=== PATIENT | female | born 1990 | race Caucasian/White ===

== ENCOUNTER → 2020-08-22 09:21 | Outpatient (BNVA) | payer OTHER, SELFPAY | PROVIDERS: PCP Internal Medicine; Visit Provider Physician Assistant ==

== ENCOUNTER → 2020-09-02 08:16 | Outpatient (BNVA) | payer OTHER, SELFPAY | PROVIDERS: PCP Internal Medicine; Visit Provider Surgery | DX: E66.01 Morbid (severe) obesity due to excess calories (principal); G47.30 Sleep apnea, unspecified; K21.9 Gastro-esophageal reflux disease without esophagitis; Z68.43 Body mass index [BMI] 50.0-59.9, adult | CPT/HCPCS: Q3014 ==

== ENCOUNTER 2020-09-04 09:21 | Outpatient (REF) | payer OTHER, SELFPAY ==
--- NOTE | ~2020-09-04 | XR_ITS ---
EXAMINATION: XR CHEST CLINICAL INFORMATION: Obesity COMPARISON: None TECHNIQUE: 2 views of the chest were obtained. FINDINGS: No significant abnormality is noted involving the heart, lungs, mediastinum, bony thorax or soft tissues. XR/XR chest 2V IMPRESSION: Unremarkable examination.
--- NOTE | 2020-09-04 09:31 | ECG_ITS ---
Test Reason : E66.01 Blood Pressure : / mmHG Vent. Rate : 084 BPM Atrial Rate : 084 BPM P-R Int : 154 ms QRS Dur : 092 ms QT Int : 378 ms P-R-T Axes : 047 035 016 degrees QTc Int : 446 ms Normal sinus rhythm Normal ECG No previous ECGs available Referred By: Alexey Puri Electronically Signed By:YUDITH CALLAWAY
[2020-09-04 10:13] LABS: MANUAL DIFF FLAG NO
[2020-09-04 10:17] LABS: Basophils Absolute Auto 0.1 X10*3/uL (0.0-0.2); Basophils Percent Auto 0.6 % (0-2); Eosinophils Absolute Auto 0.2 X10*3/uL (0.0-0.4); Eosinophils Percent Auto 2.6 % (0-4); Hematocrit 43.4 % (37-47); Hemoglobin 13.8 g/dl (12.0-16.0); Imm Gran Abs Auto 0.08 X10*3/uL (0.00-0.03); Imm Gran Pct Auto 0.9 % (0.0-0.4); Lymphocytes Absolute Auto 2.5 X10*3/uL (1.2-4.9); Mean Corpuscular HGB Conc 31.8 g/dl (31.0-35.0); Mean Corpuscular Hemoglobin 26.9 pg (27.0-33.0); Mean Corpuscular Volume 84.6 fL (80-98); Mean Platelet Volume 9.4 fL (9.4-12.3); Monocytes Absolute Auto 0.6 X10*3/uL (0.1-1.2); Monocytes Percent Auto 6.6 % (2-11); Neutrophils Absolute Auto 5.3 X10*3/uL (2.0-8.3); Neutrophils Percent Auto 60.3 % (45-73); Platelet Count 379 X10*3/uL (160-400); Red Blood Count 5.13 X10*6/uL (4.20-5.50); Red Cell Distribution Width 13.5 % (11.0-16.0); White Blood Count 8.7 X10*3/uL (4.8-10.8)
[2020-09-04 10:27] LABS: Estimated Average Glucose 123 mg/dL; Hemoglobin A1C 148.3461 umol/L; Hemoglobin A1c % 5.9 %
[2020-09-04 10:46] LABS: Alanine Aminotransferase 27 U/L (0-31); Albumin Level 4.2 g/dL (3.5-5.0); Alkaline Phosphatase 74 U/L (39-117); Anion Gap 13 (12-20); Aspartate Amino Transferase 23 U/L (5-31); Bilirubin Total 0.5 mg/dL (0.0-1.0); Blood Urea Nitrogen 9 mg/dL (9-16); C Reactive Protein 1.01 mg/dL (< or = 0.50); Calcium 9.6 mg/dL (8.4-10.2); Carbon Dioxide 29 mmol/L (22-29); Chloride 102 mmol/L (96-108); Cholesterol 179 mg/dL; Estimated Glomerular Filt Rate > 60; Glucose Random 92 mg/dL (60-115); HDL Cholesterol 40 mg/dL; Iron 71 mcg/dL (30-160); LDL Cholesterol Calculated 118 mg/dl; Percent Iron Saturation 16 % (15-50); Potassium 4.9 mmol/L (3.3-5.1); Sodium 139 mmol/L (135-145); Total Iron Binding Capacity 431 mcg/dL (228-428); Total Protein 7.9 g/dL (6.5-8.0); Triglycerides 106 mg/dL; Unsaturated Iron Binding 360 ug/dL
[2020-09-04 11:01] LABS: TSH reflex Free T4 1.45 uIU/mL (0.32-4.0); Vitamin D 25-OH Total 20.8 ng/mL (>30)
[2020-09-04 11:11] LABS: Ferritin 24 ng/mL (10-122)
[2020-09-04 11:12] LABS: Folate 15.2 ng/mL (> or = 4.0); Vitamin B12 416 pg/mL (200-900)
[2020-09-05 06:32] LABS: Insulin Level Total 68.4 uIU/mL
[2020-09-06 10:22] LABS: Calcium (PTHI) 9.5 mg/dL (8.6-10.2); PTHI 32 pg/mL (14-64)
[2020-09-06 23:47] LABS: Zinc 112 mcg/dL (60-130)
[2020-09-10 10:17] LABS: Vitamin A 37 mcg/dL (38-98)
[2020-09-10 15:12] LABS: Vitamin B1 10 nmol/L (8-30)
== END 2020-09-04 09:22 | disposition home or self-care (01) ==
LOC: HO.LAB 09:21
PROVIDERS: PCP Internal Medicine; Visit Provider Surgery
DX: E66.01 Morbid (severe) obesity due to excess calories (principal); G47.30 Sleep apnea, unspecified; K21.9 Gastro-esophageal reflux disease without esophagitis
CPT/HCPCS: 36415; 71046; 80053; 80061; 82306; 82607; 82728; 82746; 83036; 83525; 83540; 83970; 84425; 84443; 84590; 84630; 85025; 86140; 93005

== ENCOUNTER 2020-09-12 14:56 | Outpatient (REF) | payer OTHER, SELFPAY ==
[2020-09-13 13:41] LABS: H Pylori Breath Test NOT DETECTED (NOT DETECTED)
== END 2020-09-12 14:57 | disposition home or self-care (01) ==
LOC: HO.LNP 14:56
PROVIDERS: Surgery; PCP Internal Medicine; Visit Provider Physician Assistant
DX: E66.01 Morbid (severe) obesity due to excess calories (principal); G47.30 Sleep apnea, unspecified; K21.9 Gastro-esophageal reflux disease without esophagitis
CPT/HCPCS: 83013; 99211

== ENCOUNTER → 2020-09-23 07:33 | Outpatient (BNVA) | payer OTHER, SELFPAY | PROVIDERS: PCP Internal Medicine; Visit Provider Surgery ==

== ENCOUNTER → 2020-09-25 08:07 | Outpatient (BNVA) | payer OTHER, SELFPAY | PROVIDERS: PCP Internal Medicine; Visit Provider Dietitian, Registered | DX: E66.01 Morbid (severe) obesity due to excess calories (principal); Z68.43 Body mass index [BMI] 50.0-59.9, adult | CPT/HCPCS: 97802 ==

== ENCOUNTER 2020-10-07 07:33 | Outpatient (REF) | payer OTHER, SELFPAY ==
--- NOTE | ~2020-10-07 | FL_ITS ---
EXAMINATION: XR GI SERIES CLINICAL INFORMATION: Morbid/severe obesity due to excess calories. COMPARISON: None. TECHNIQUE: Routine upper GI air-contrast study was performed. FINDINGS: Following oral administration of thick barium and effervescent granules, there is normal propagation bolus from the oral cavity through the pharynx and into the esophagus without any evidence of obstruction, narrowing or stricture. On placing patient supine and prone lying, the course, caliber and peristalsis of the stomach, duodenal bulb and the CBD are normal. The mucosal pattern of the stomach and the duodenum is normal. No gastroesophageal reflux or hiatal hernia seen. FLUOROSCOPY TIME: 2.6 minutes. DOSE AREA PRODUCT: 62.046 uGy-m2 (microgray-meter squared). FL/FL upper GI series IMPRESSION: Unremarkable upper GI air-contrast study.
--- NOTE | ~2020-10-07 | US_ITS ---
EXAMINATION: US COMPLETE ABDOMEN WITH LIVER ELASTOGRAPHY CLINICAL INFORMATION: Obesity COMPARISON: None. TECHNIQUE: Real-time imaging of the abdominal viscera. Noninvasive ultrasound liver fibrosis assessment is performed using Darlene ElastPQ point quantification shear wave elastography (pSWE) with a C5-2 MHz transducer. Multiple elastography samples are obtained. FINDINGS: PANCREAS: Normal. ABDOMINAL AORTA: The proximal, middle, and distal aortic segments are normal in caliber. INFERIOR VENA CAVA: Visualized portions are normal. LIVER: Liver is enlarged. Liver echotexture is increased probably representing fatty alteration. The liver contour is normal. No focal lesion or intrahepatic biliary duct dilatation. The right lobe measures 20 cm in length. The left lobe measures 12 cm in length. Portal flow is normal/hepatopedal. Shear wave liver elastography median stiffness is 1.3 m/s (reference: normal median stiffness is 1.3 m/s or less). IQR/median stiffness to assess sampling precision is .2 (reference: good quality data set is IQR/median stiffness of 0.15 or less). GALLBLADDER: Normal. The gallbladder is physiologically distended without evidence of stones, sludge, polyps, wall thickening or pericholecystic fluid. COMMON BILE DUCT: Normal in caliber measuring .3 cm in diameter. RIGHT KIDNEY: Normal. No hydronephrosis. No renal calculi or focal parenchymal lesions. The kidney measures 15 cm in maximum dimension. LEFT KIDNEY: There are 2 stones measuring 8 mm in the mid and lower pole. No hydronephrosis. No focal parenchymal lesions. The kidney measures 14 cm in maximum dimension. SPLEEN: Normal. The spleen measures 12 cm in maximum dimension. FREE FLUID: None. US/US abdomen comp w elastography IMPRESSION: 1. Impression: Enlarged echogenic liver probably representing fatty infiltration. Left renal stones. 2. Liver elastography: Slightly limited due to sampling error. High probability of normal. REFERENCE: Society of Radiologists in Ultrasound Liver Stiffness Thresholds (2020): LIVER STIFFNESS THRESHOLDS: *Liver Stiffness equal or less than 1.3 m/s: High probability of being normal. *Liver Stiffness less than 1.7 m/s: In the absence of other known clinical signs, rules out compensated advanced chronic liver disease. *Liver Stiffness 1.7-2.1 m/s: Suggestive of compensated advanced chronic liver disease but need further test for confirmation. *Liver Stiffness over 2.1 m/s: Rules in compensated advanced chronic liver disease. *Liver Stiffness over 2.4 m/s: Suggestive of clinically significant portal hypertension. QUALITY OF DATA SET: *IQR/Median value equal or less than 0.15 implies a quality data set. *IQR/Median value over 0.15 implies a poor quality data set. SIGNIFICANT CHANGE FROM PRIOR EXAM: Significant change if liver stiffness measurement is 10% or greater from prior exam. OTHER CONSIDERATIONS: The stage of liver fibrosis may be overestimated in the setting of acute hepatitis, liver inflammation, elevated liver function tests, hepatic vascular congestion, obstructive cholestasis, non-fasting state, and infiltrative diseases such as amyloidosis and lymphoma. In some patients with NAFLD, the liver stiffness thresholds for compensated advanced chronic liver disease may be lower. In causes other than viral hepatitis and NAFLD, liver stiffness thresholds are not well established.
== END 2020-10-07 07:34 | disposition home or self-care (01) ==
LOC: HO.US 07:33
PROVIDERS: Visit Provider Surgery
DX: Z01.818 Encounter for other preprocedural examination (principal); E66.01 Morbid (severe) obesity due to excess calories; K21.9 Gastro-esophageal reflux disease without esophagitis; G47.30 Sleep apnea, unspecified
CPT/HCPCS: 74240; 76705; 76981

== ENCOUNTER 2021-02-06 11:13 | Outpatient (REF) | payer OTHER, SELFPAY ==
[2021-02-06 12:38] LABS: Influenza A PCR NEGATIVE (Negative); Influenza B PCR NEGATIVE (Negative); Resp Syncy Virus RNA Qual PCR NEGATIVE (Negative); SARS COV2 PCR INHOUSE NEGATIVE (Negative)
== END 2021-02-06 11:14 | disposition home or self-care (01) ==
LOC: HO.LNP 11:13
PROVIDERS: Visit Provider Physician Assistant Medical
DX: Z20.822 Contact with and (suspected) exposure to COVID-19 (principal); J06.9 Acute upper respiratory infection, unspecified
CPT/HCPCS: 0241U

== ENCOUNTER → 2021-02-26 08:04 | Outpatient (BNVA) | payer OTHER, SELFPAY | PROVIDERS: PCP Internal Medicine; Visit Provider Surgery ==

== ENCOUNTER → 2021-03-20 08:04 | Outpatient (BNVA) | payer OTHER, SELFPAY | PROVIDERS: PCP Internal Medicine; Visit Provider Dietitian, Registered | DX: E66.01 Morbid (severe) obesity due to excess calories (principal) | CPT/HCPCS: 97803 ==

== ENCOUNTER → 2021-03-24 08:10 | Outpatient (BNVA) | payer OTHER, SELFPAY | PROVIDERS: PCP Internal Medicine; Visit Provider Surgery ==

== ENCOUNTER → 2021-04-07 08:13 | Outpatient (BNVA) | payer SELFPAY | PROVIDERS: PCP Internal Medicine; Referring Provider Surgery; Visit Provider Dietitian, Registered | DX: E66.01 Morbid (severe) obesity due to excess calories (principal) | CPT/HCPCS: 97803 ==

== ENCOUNTER → 2021-04-22 08:16 | Outpatient (BNVA) | payer OTHER, SELFPAY | PROVIDERS: PCP Internal Medicine; Referring Provider Surgery; Visit Provider Dietitian, Registered ==

== ENCOUNTER → 2021-04-28 08:06 | Outpatient (BNVA) | payer OTHER, SELFPAY | PROVIDERS: PCP Internal Medicine; Referring Provider Surgery; Visit Provider Dietitian, Registered | DX: E66.01 Morbid (severe) obesity due to excess calories (principal); Z68.43 Body mass index [BMI] 50.0-59.9, adult | CPT/HCPCS: 97803 ==

== ENCOUNTER 2021-06-20 08:48 | Outpatient (REF) | payer OTHER, SELFPAY ==
[2021-06-20 09:17] LABS: MANUAL DIFF FLAG NO
[2021-06-20 09:27] LABS: Basophils Absolute Auto 0.1 X10*3/uL (0.0-0.2); Basophils Percent Auto 0.7 % (0-2); Eosinophils Absolute Auto 0.2 X10*3/uL (0.0-0.4); Eosinophils Percent Auto 2.3 % (0-4); Hematocrit 40.6 % (37.0-47.0); Hemoglobin 12.8 g/dl (12.0-16.0); Imm Gran Pct Auto 1.1 % (0.0-0.4); Lymphocytes Absolute Auto 2.8 X10*3/uL (1.2-4.9); Mean Corpuscular HGB Conc 31.5 g/dl (31.0-35.0); Mean Corpuscular Hemoglobin 26.8 pg (27.0-33.0); Mean Corpuscular Volume 85.1 fL (80.0-98.0); Monocytes Absolute Auto 0.6 X10*3/uL (0.1-1.2); Monocytes Percent Auto 6.6 % (2-11); Neutrophils Absolute Auto 5.1 x10*3/uL (2.0-8.3); Neutrophils Percent Auto 57.3 % (45-73); Platelet Count 325 X10*3/uL (160-400); Red Blood Count 4.77 X10*6/uL (4.20-5.50); Red Cell Distribution Width 13.9 % (11.0-16.0); White Blood Count 8.8 X10*3/uL (4.8-10.8)
[2021-06-20 09:52] LABS: Alanine Aminotransferase 30 U/L (0-31); Alkaline Phosphatase 78 U/L (39-117); Anion Gap 9 (12-20); Aspartate Amino Transferase 18 U/L (5-31); Bilirubin Total 0.4 mg/dL (0.0-1.0); Blood Urea Nitrogen 8 mg/dL (9-16); Calcium 9.4 mg/dL (8.4-10.2); Carbon Dioxide 32 mmol/L (22-29); Chloride 104 mmol/L (96-108); Cholesterol 170 mg/dL; Estimated Glomerular Filt Rate > 60; Glucose Fasting 102 mg/dL (60-99); HDL Cholesterol 40 mg/dL; LDL Cholesterol Calculated 113 mg/dl; Potassium 4.7 mmol/L (3.3-5.1); Sodium 140 mmol/L (135-145); Total Protein 7.5 g/dL (6.5-8.0); Triglycerides 89 mg/dL
[2021-06-20 10:09] LABS: TSH reflex Free T4 1.71 uIU/mL (0.32-4.0)
[2021-06-20 11:17] LABS: Estimated Average Glucose 134 mg/dL; Hemoglobin A1c % 6.3 %
[2021-06-20 12:35] LABS: Folate 11.9 ng/mL (> or = 4.0); Vitamin B12 327 pg/mL (200-900)
[2021-06-27 21:51] LABS: Vitamin D 25-OH, D2 <4 ng/mL; Vitamin D 25-OH, D3 15 ng/mL; Vitamin D 25-OH, Total 15 ng/mL (30-100)
== END 2021-06-20 08:49 | disposition home or self-care (01) ==
LOC: HO.LAB 08:48
PROVIDERS: PCP Internal Medicine; Visit Provider Nurse Practitioner Acute Care
DX: Z00.00 Encounter for general adult medical examination without abnormal findings (principal)
CPT/HCPCS: 36415; 80053; 80061; 82306; 82607; 82746; 83036; 84443; 85025

== ENCOUNTER 2021-07-10 11:44 | Emergency (ER) | payer OTHER, SELFPAY ==
[2021-07-10 11:51] VITALS: BP 113/76; PULSE 16; O2SAT 96
[2021-07-10 12:10] VITALS: BP 141/73; PULSE 83; RESP 18; TEMP 37.1; O2SAT 96; BMI 56.2
[2021-07-10 12:23] LABS: MANUAL DIFF FLAG NO
[2021-07-10 12:25] LABS: Basophils Percent Auto 0.5 % (0-2); Eosinophils Absolute Auto 0.2 X10*3/uL (0.0-0.4); Eosinophils Percent Auto 2.4 % (0-4); Hematocrit 39.6 % (37.0-47.0); Hemoglobin 12.6 g/dl (12.0-16.0); Imm Gran Abs Auto 0.05 X10*3/uL (0.00-0.03); Imm Gran Pct Auto 0.6 % (0.0-0.4); Lymphocytes Absolute Auto 2.5 X10*3/uL (1.2-4.9); Lymphocytes Percent Auto 31.5 % (20-40); Mean Corpuscular HGB Conc 31.8 g/dl (31.0-35.0); Mean Corpuscular Hemoglobin 26.6 pg (27.0-33.0); Mean Corpuscular Volume 83.7 fL (80.0-98.0); Mean Platelet Volume 8.7 fL (9.4-12.3); Monocytes Absolute Auto 0.5 X10*3/uL (0.1-1.2); Neutrophils Absolute Auto 4.6 x10*3/uL (2.0-8.3); Platelet Count 299 X10*3/uL (160-400); Red Blood Count 4.73 X10*6/uL (4.20-5.50); White Blood Count 7.9 X10*3/uL (4.8-10.8)
[2021-07-10 12:47] LABS: Alanine Aminotransferase 32 U/L (0-31); Albumin Level 3.8 g/dL (3.5-5.0); Alkaline Phosphatase 71 U/L (39-117); Anion Gap 10 (12-20); Aspartate Amino Transferase 19 U/L (5-31); Bilirubin Total 0.2 mg/dL (0.0-1.0); Blood Urea Nitrogen 11 mg/dL (9-16); Calcium 9.5 mg/dL (8.4-10.2); Carbon Dioxide 30 mmol/L (22-29); Chloride 105 mmol/L (96-108); Creatinine Clr Calc Pharmacy 178.8; Estimated Glomerular Filt Rate > 60; Glucose Random 119 mg/dL (60-115); Potassium 4.6 mmol/L (3.3-5.1); Sodium 140 mmol/L (135-145); Total Protein 7.2 g/dL (6.5-8.0)
--- NOTE | 2021-07-10 15:21 | ED_ITS ---
HPI - Abdominal Pain General Chief Complaint: Abdominal Pain Stated Complaint: LOW ABD PAIN, RECENT OVARIAN CYST PER EMS Time Seen by Provider: 07/10/21 15:18 Source: patient and EMS Mode of arrival: EMS Limitations: no limitations History of Present Illness HPI narrative: 31-year-old female with a history of PCOS, prediabetes, migraines, insomnia, obesity who presents to the ER with lower abdominal pain for the last 3 days. She was just seen at [place] [facility] last night, had full workup including ultrasound and CT scan. She was diagnosed with ovarian cysts and discharged home. She called 911 today for transport to the hospital for ongoing pain. She called her OBGYN this morning for follow up who reports that her imaging also showed 7mm kidney stones and her pain may be from that. patient reports she has a dull, aching pain along her entire lower abdomen and pelvic area that is constant in nature. It does not wax and wane or get worse. She denies any vaginal bleeding or discharge. She reports increased urinary frequency but denies dysuria or hematuria. No flank pain. She is nauseous from the lower abdominal pain but has not vomited. No constipation or diarrhea. No fever chills. She has been taking Motrin and Tylenol for her lower abdominal pain with no relief. She states the pain is 10/10. MD elicited complaint: abdominal pain Pertinent past history: other (PCOS) Onset (ago): day(s) (3) Pain Consistency: constant Location: pelvis Severity: severe Pain scale (0-10): 10 Quality: aching and dull Radiation: none Migration to: no migration Exacerbating factors: nothing Relieving factors: nothing Associated symptoms: nausea and other (urinary frequency) Treatments prior to arrival: NSAIDs Related Data Hx Last Menstrual Period: one year ago, very irregular Previous Rx's Medication Instructions Recorded ebncadpzzc-bamqzxjsikoqg-oauwyaar 1 cap PO Q4-6H PRN #10 cap 06/12/21 50 mg-300 mg-40 mg capsule (Fioricet) trazodone 50 mg tablet 50 mg PO BEDTIME PRN #30 tab 06/12/21 calcitriol 0.25 mcg capsule 0.25 mcg PO DAILY #30 cap 06/29/21 nitrofurantoin 100 mg PO Q12H 5 Days #10 cap 07/10/21 monohydrate/macrocrystals 100 mg capsule (Macrobid) tramadol 50 mg tablet 50 mg PO Q8H PRN #7 tab 07/10/21 Allergies Allergy/AdvReac Type Severity Reaction Status Date / Time cortisone [CORTISONE] Allergy Unknown Anaphylaxis,hives,chest Verified 06/12/21 15:58 pain Review of Systems Review of Systems Constitutional: No Fever, No Chills ENT/Mouth: No sore throat, No Rhinorrhea, No Swallowing Difficulty Cardiovascular: No Chest Pain, No SOB, No Orthopnea, No Edema Respiratory: No Cough, No Sputum, No Wheezing, No dyspnea Gastrointestinal: + Nausea, No Vomiting, No Diarrhea, + abdominal Pain, No Hematochezia, No Melena Genitourinary: No Dysuria, + Urinary Frequency, No Hematuria, No vaginal discharge Musculoskeletal: No joint pain, No Myalgias Skin: No Skin Lesions, No rash Neuro: No Weakness, No Numbness, No Dizziness, No Headache Psych: + Anxiety/Panic, No Depression Heme/Lymph: No Bruising, No Lymphadenopathy Endocrine: No Polyuria, No Polydipsia PMFSH Past Medical History Medical History GERD (gastroesophageal reflux disease) Morbid obesity PCOS (polycystic ovarian syndrome) Sleep apnea with use of continuous positive airway pressure (CPAP) Surgical History History of incision and drainage Hx Last Menstrual Period: one year ago, very irregular Family History Family History Father Bipolar 1 disorder COPD (chronic obstructive pulmonary disease) Psoriasis Eczema Depression Chronic mental illness Mother Hypothyroidism Rheumatoid arthritis Brother In good health Paternal Aunt Breast cancer Social History Social History Housing: House Alcohol intake: current Alcohol intake frequency: a few times a month Patient Tobacco Use Status: Never used Tobacco e-Cigarette/Vaping Use: Never Used Second Hand Smoke Exposure: No Advance Directives: No Advance Directives Information Provided: No Patient : No service: No Current occupational status: employed Cognitive needs: No Hearing needs: No Vision needs: No Physical Exam ED Vital Signs: Vital Signs - 24 hr 07/10/21 12:10 07/10/21 16:50 Temperature 98.7 F Pulse Rate 83 77 Respiratory Rate 18 18 Blood Pressure 141/73 H 126/70 Pulse Oximetry 96 99 BMI result Body Mass Index 56.2 Appearance: Alert. Oriented X3. No acute distress. Eyes: Pupils equal, round and reactive to light. ENT: Pharynx normal. Neck: Normal inspection. Neck supple. CVS: Normal heart rate and rhythm. Pulses normal. Respiratory: No respiratory distress. Breath sounds normal. Abdomen: morbidly obese with suprapubic tenderness, no rebound or guarding. normal +BS x4. pelvic deferred Skin: Skin warm and dry. Normal skin color. Normal skin turgor. No rashes. Extremities: No lower extremity edema. Neuro: Oriented X 3. grossly normal, nonfocal Course Course Course Narrative: 31-year-old female with a history of obesity, PCOS, prediabetes, migraines, insomnia who presents to the ER with 3 days of dull, constant lower abdominal pain. Seen at [facility] yesterday where she had a transvaginal ultrasound with Doppler as well as a CT scan. Imaging showed both ovaries with volume greater than 10 cc, multiple follicles, greater than 20 in each ovary consistent with PCOS. There was no evidence of torsion or suspicious lesions. CT scan read was reviewed and there are 2 nonobstructing stones within the left kidney none in the ureter and, no hydronephrosis. She has no flank pain to suggest pain is coming from there. Upon further review patient appeared to had a ur inalysis that was showed 3+ leukocyte esterase. Her pain is most likely from UTI and a flare of her PCOS. Will treat her pain and nausea now and reassess. Repeat UA is pending. No need to repeat ultrasound or CT scan at this time given her pain is unchanged from yesterday, doubt torsion given no acute worsening of the pain. Reevaluation(s) Reevaluation #1: patient is feeling better after medication. Her UA is slightly positive with positive leukocyte esterase. Will treat given her symptoms. Id she is stable for discharge home with pain control and treatment for UTI. She will follow-up with her OBGYN in primary care doctors. MDM - Abdominal Pain Lab Data Result diagrams: 07/10/21 12:20 07/10/21 12:20 Labs: Lab Results 03/07/10/21 07/10/21 Range/Units 12:20 12:20 16:53 WBC 7.9 (4.8-10.8) X10*3/uL RBC 4.73 (4.20-5.50) X10*6/uL Hgb 12.6 (12.0-16.0) g/dl Hct 39.6 (37.0-47.0) % MCV 83.7 (80.0-98.0) fL MCH 26.6 L (27.0-33.0) pg MCHC 31.8 (31.0-35.0) g/dl RDW 14.0 (11.0-16.0) % Plt Count 299 (160-400) X10*3/uL MPV 8.7 L (9.4-12.3) fL Immature Gran % (Auto) 0.6 H (0.0-0.4) % Neut % (Auto) 59.0 (45-73) % Lymph % (Auto) 31.5 (20-40) % Iron % (Auto) 6.0 (2-11) % Eos % (Auto) 2.4 (0-4) % Baso % (Auto) 0.5 (0-2) % Lymph # (Auto) 2.5 (1.2-4.9) X10*3/uL Iron # (Auto) 0.5 (0.1-1.2) X10*3/uL Eos # (Auto) 0.2 (0.0-0.4) X10*3/uL Baso # (Auto) 0.0 (0.0-0.2) X10*3/uL Abs Immat Gran (auto) 0.05 H (0.00-0.03) X10*3/uL Absolute Neuts (auto) 4.6 (2.0-8.3) x10*3/uL Absolute Nucleated RBC 0.000 (0.0-0.012) X10*3/uL Nucleated RBC % (auto) 0.0 (0.0-0.2) /100WBC Sodium 140 (135-145) mmol/L Potassium 4.6 (3.3-5.1) mmol/L Chloride 105 (96-108) mmol/L Carbon Dioxide 30 H (22-29) mmol/L Anion Gap 10 L (12-20) BUN 11 (9-16) mg/dL Creatinine 0.70 (0.5-1.4) mg/dL Estim Creat Clear Calc 178.8 Estimated GFR > 60 Random Glucose 119 H (60-115) mg/dL Calcium 9.5 (8.4-10.2) mg/dL Total Bilirubin 0.2 (0.0-1.0) mg/dL AST 19 (5-31) U/L ALT 32 H (0-31) U/L Alkaline Phosphatase 71 (39-117) U/L Total Protein 7.2 (6.5-8.0) g/dL Albumin 3.8 (3.5-5.0) g/dL Urine Color YELLOW Urine Appearance HAZY Urine pH 5.5 (5.0-8.0) Ur Specific [place] 1.025 (1.005-1.025) Urine Protein NEG (NEG-TRACE) MG/DL Urine Glucose (UA) NEG (NEG) MG/DL Urine Ketones NEG (NEG) MG/DL Urine Blood NEG (NEG) Urine Nitrite NEG (NEG) Ur Leukocyte Esterase 1+ H (NEG) Urine RBC 0 (0) /HPF Urine WBC 1-4 (0-4) /HPF Ur Squamous Epith Cells 1+ /LPF Urine Bacteria TRACE /LPF Critical Care Time Critical Care Time Critical Care Time: No Discharge Plan Discharge Clinical Impression: PCOS (polycystic ovarian syndrome), UTI (urinary tract infection) Patient Disposition: Home, Self-Care Instructions: Ovarian Cyst (ED), Urinary Tract Infection in Women (DC) Additional Instructions: Take the prescribed antibiotic for urinary tract infection, complete the entire course. Drink plenty of fluids. Recommend continuing Motrin and Tylenol as needed for mild to moderate pain. Take the prescribed Tramadol for severe pain - do not drive after taking this medication. Follow up with your [facility] [employer] [facility] and PCP as soon as possible If you develop new or worsening symptoms call 911 or come back to the ER for further evaluation. Prescriptions: New nitrofurantoin monohyd/m-cryst [Macrobid] 100 mg capsule 100 mg PO Q12H 5 Days Qty: 10 0RF Rx Instructions: must administer with a meal/food tramadol 50 mg tablet 50 mg PO Q8H PRN (Reason: severe pain (scale score 7-10)) Qty: 7 0RF No Action calcitriol 0.25 mcg capsule 0.25 mcg PO DAILY Qty: 30 2RF trazodone 50 mg tablet 50 mg PO BEDTIME PRN (Reason: sleep) Qty: 30 0RF yaabkpnoqf-spykgilzduhhd-[id number] [Fioricet] 50-300-40 mg capsule 1 cap PO Q4-6H PRN (Reason: headache) Qty: 10 0RF Referrals: Kel Escalante MD [Primary Care Provider] - 2 days (pcos, uti) Edinson Whittaker MD [Physician] - 2 days (PCOS)
[2021-07-10] MEDS: ondansetron HCL 4 MG/2 ML VIAL IVPUSH (16:46)
[2021-07-10] MEDS: Morphine Sulfate 4 MG/ML CARTRIDGE IVPUSH (16:46)
[2021-07-10 16:50] VITALS: BP 126/70; PULSE 77; RESP 18; O2SAT 99
--- NOTE | 2021-07-10 17:00 | PC.NURSE ---
MEDICATED CHARTED FOR PAIN AND NAUSEA. PO CRACKERS GIVEN. URINE SENT
[2021-07-10 17:03] LABS: Appearance Urine HAZY; Color Urine YELLOW; Glucose Urine UA NEG (NEG); Leukocyte Esterase Urine 1+ (NEG); Nitrite Urine NEG (NEG); PH 5.5 (5.0-8.0); Specific Gravity - Urine 1.025 (1.005-1.025); UACC Culture Trigger YES; Urine Blood NEG (NEG); Urine Ketones NEG (NEG); Urine Protein NEG (NEG-TRACE)
[2021-07-10 17:18] LABS: Bacteria Urine TRACE /LPF; RBC Urine 0 /HPF (0); Squamous Epithelial Cell Urine 1+ /LPF
== END 2021-07-10 17:55 | disposition home or self-care (01) ==
PROVIDERS: Emergency Provider Emergency Medicine; PCP Internal Medicine
DX: N39.0 Urinary tract infection, site not specified (principal); E28.2 Polycystic ovarian syndrome; R10.30 Lower abdominal pain, unspecified; Z87.442 Personal history of urinary calculi; R73.03 Prediabetes
CPT/HCPCS: 36415; 80053; 81001; 85025; 87086; 96374; 96375; 99283; 99284; J2270; J2405

== ENCOUNTER 2021-07-16 11:04 | Outpatient (REF) | payer OTHER, SELFPAY ==
[2021-07-16 16:22] LABS: CT PCR NOT DETECTED (Not Detect.); NG PCR NOT DETECTED (Not Detect.)
== END 2021-07-16 11:05 | disposition home or self-care (01) ==
LOC: HO.LAB 11:04
PROVIDERS: PCP Internal Medicine; Visit Provider Obstetrics & Gynecology
DX: Z01.419 Encounter for gynecological examination (general) (routine) without abnormal findings (principal); N91.5 Oligomenorrhea, unspecified; Z32.02 Encounter for pregnancy test, result negative
CPT/HCPCS: 81025; 87491; 87591; 88142

== ENCOUNTER 2021-07-18 11:15 | Outpatient (REF) | payer OTHER, SELFPAY ==
[2021-07-18 12:39] LABS: Cholesterol 165 mg/dL; HDL Cholesterol 35 mg/dL; Triglycerides 101 mg/dL
[2021-07-18 12:50] LABS: HCG Quantitative < 2 mIU/mL; Thyroid Stimulating Hormone 1.71 uIU/mL (0.32-4.0)
[2021-07-20 04:52] LABS: DHEA Sulfate 140 mcg/dL (14-349); Prolactin 8.8 ng/mL
[2021-07-20 06:00] LABS: LDL Cholesterol Direct 118 mg/dL (<100)
[2021-07-26 20:36] LABS: Testosterone, Free 9.5 pg/mL (0.1-6.4); Testosterone, Total 68 ng/dL (2-45)
== END 2021-07-18 11:16 | disposition home or self-care (01) ==
LOC: HO.LAB 11:15
PROVIDERS: PCP Internal Medicine; Visit Provider Obstetrics & Gynecology
DX: N91.5 Oligomenorrhea, unspecified (principal)
CPT/HCPCS: 36415; 82465; 82627; 83498; 83718; 83721; 84146; 84402; 84403; 84443; 84478; 84702

== ENCOUNTER 2021-07-22 08:20 | Outpatient (REF) | payer OTHER, SELFPAY ==
[2021-07-22 09:21] LABS: Glucose Fasting 110 mg/dL (60-99)
[2021-07-22 11:07] LABS: Glucose 1 Hour 189 mg/dL
[2021-07-22 12:41] LABS: Glucose 2 Hour 163 mg/dL
== END 2021-07-22 08:21 | disposition home or self-care (01) ==
LOC: HO.LAB 08:20
PROVIDERS: PCP Internal Medicine; Visit Provider Obstetrics & Gynecology
DX: N91.5 Oligomenorrhea, unspecified (principal)
CPT/HCPCS: 36415

== ENCOUNTER 2021-08-01 01:00 | Emergency (ER) | payer OTHER, SELFPAY ==
--- NOTE | ~2021-08-01 | CT_ITS ---
EXAMINATION: CT SOFT TISSUE NECK WITH CONTRAST CLINICAL INFORMATION: Sore throat. Difficulty swallowing. COMPARISON: None TECHNIQUE: Following the intravenous administration of 85 mL of Omnipaque 350 intravenous contrast, helical imaging was performed in the axial plane with generation of coronal and sagittal reformatted images. This CT examination was performed using dose optimization techniques as appropriate, variously including the following: *Automated exposure control *Adjustment of mA and/or kV according to patient size (this includes techniques or standardized protocols for targeted exams where dose is matched to indication/reason for exam; i.e. extremities or head) *Use of iterative reconstruction technique DLP: 1209 mGy-cm FINDINGS: No cervical adenopathy is identified. The parotid glands are homogeneous in attenuation. The submandibular glands are normal. No contour abnormality or pathologic enhancement is seen within the oral cavity or pharyngeal mucosal space. There is prominence of the bilateral palatine tonsils. The laryngeal structures are normal. The parapharyngeal fat is preserved. The carotid sheath vasculature opacify normally. No extra mucosal soft tissue mass or fluid collection is seen. No retropharyngeal fluid collection is seen. The thyroid gland is normal. The superior mediastinum is unremarkable. The lung apices are clear. The mastoid air cells and visualized portions of the paranasal sinuses are well-aerated. The temporomandibular joints are normal. No periapical disease is identified. No osseous abnormalities are seen. The imaged portions of the brain parenchyma are unremarkable. CT/CT soft tissue neck w con IMPRESSION: Bilateral tonsillar prominence suggestive of tonsillitis. No lymphadenopathy. The airway remains patent.
[2021-08-01 01:27] VITALS: BP 121/67; PULSE 97; RESP 20; TEMP 36.8; O2SAT 96; BMI 54.9
--- NOTE | 2021-08-01 01:33 | ED.GENADULT ---
HPI - General Adult General Chief complaint: General Medical <COLE Mitchell Last Filed: 08/01/21 02:09> Stated complaint: double ear infection, strep throat <COLE Mitchell Last Filed: 08/01/21 02:09> Time Seen by Provider: 08/01/21 01:08 <COLE Mitchell Last Filed: 08/01/21 02:09> Source: patient <COLE Mitchell Last Filed: 08/01/21 02:09> Mode of arrival: ambulatory <COLE Mitchell Last Filed: 08/01/21 02:09> Limitations: no limitations <COLE Mitchell Last Filed: 08/01/21 02:09> History of Present Illness HPI narrative: 31-year-old female past medical history significant for GERD, morbid obesity, PCOS, sleep apnea with CPAP use at night presenting to the emergency department with complaints of ear pain, sore throat and shortness of breath x4 days worsening. Patient tells me that she was seen at a walk-in center earlier where she was noted to be febrile 102 degrees F, they told her she had a bilateral ear infection and strep throat. Patient tells me she was started on amoxicillin a 1000 mg p.o. Q 8 hours. Patient tells me that the reason she decided to come into the emergency department is because she is feeling like she is very short of breath and is having difficulty breathing. She denies chest pain, nausea, vomiting, headache, dizziness, abdominal pain, back pain, changes in urination. <COLE Mitchell Last Filed: 08/01/21 02:09> Onset (ago): day(s) (4) <COLE Mitchell Last Filed: 08/01/21 02:09> Location: head (Bilateral ears) and mouth (Sore throat) <COLE Mitchell Last Filed: 08/01/21 02:09> Radiation: non-radiation <COLE Mitchell Last Filed: 08/01/21 02:09> Severity: severe <COLE Mitchell Last Filed: 08/01/21 02:09> Quality: burning <COLE Mitchell Last Filed: 08/01/21 02:09> Pain Consistency: constant <COLE Mitchell Last Filed: 08/01/21 02:09> Relieving factors: none <COLE Mitchell Last Filed: 08/01/21 02:09> Exacerbating factors: none <COLE Mitchell Last Filed: 08/01/21 02:09> Associated symptoms: fever/chills (T-max 102 degrees) and malaise <COLE Mitchell Last Filed: 08/01/21 02:09> Treatments prior to arrival: none <COLE Mitchell Last Filed: 08/01/21 02:09> Related Data Home medications: Previous Rx's Medication Instructions Recorded tramadol 50 mg tablet 50 mg PO Q8H PRN #7 tab 07/10/21 trazodone 50 mg tablet 50 mg PO BEDTIME PRN #30 tab 07/15/21 amoxicillin 500 mg capsule 1,000 mg PO Q8H 10 Days #60 cap 07/31/21 amoxicillin 875 mg-potassium 1 tab PO BID 10 Days #20 tab 08/01/21 clavulanate 125 mg tablet <COLE Mitchell Last Filed: 08/01/21 02:09> Allergies/adverse reactions: Allergies Allergy/AdvReac Type Severity Reaction Status Date / Time cortisone [CORTISONE] Allergy Unknown Anaphylaxis,hives,chest Verified 07/31/21 10:28 pain <COLE Mitchell Last Filed: 08/01/21 02:09> Review of Systems Review of Systems: Constitutional : No Weight loss, No Fever, No Chills, + Fatigue, + Malaise ENT/Mouth : + sore throat, No Rhinorrhea, + ear pain Eyes: No Eye Pain, No Swelling, No Redness Cardiovascular : No Chest Pain, + SOB, No Dyspnea on Exertion, No Orthopnea, No Edema, No Palpitations Respiratory : No Cough, No Sputum, No Wheezing Gastrointestinal : No Nausea, No Vomiting, No Diarrhea, No Constipation, No abdominal Pain, No Hematochezia, No Melena Genitourinary : No Dysuria, No Urinary Frequency, No Hematuria, Musculoskeletal : No joint pain, No Myalgias, No Joint Swelling Skin : No Skin Lesions, No rash Neuro : No Weakness, No Numbness, No Dizziness, No Headache Psych : No Anxiety/Panic, No Depression All other systems reviewed and are negative <COLE Mitchell - Last Filed: 08/01/21 02:09> Yes all other systems are reviewed and are negative <COLE Mitchell - Last Filed: 08/01/21 02:09> [facility] Past Medical History Attestation statement: The following information was validated with the patient. <COLE Mitchell - Last Filed: 08/01/21 02:09> Source: old records reviewed and nursing notes reviewed <COLE Mitchell - Last Filed: 08/01/21 02:09> Medical History: Medical History GERD (gastroesophageal reflux disease) Morbid obesity PCOS (polycystic ovarian syndrome) Sleep apnea with use of continuous positive airway pressure (CPAP) <COLE Mitchell - Last Filed: 08/01/21 02:09> Surgical History: Surgical History History of incision and drainage <COLE Mitchell - Last Filed: 08/01/21 02:09> Family History Family History: Family History Father Bipolar 1 disorder COPD (chronic obstructive pulmonary disease) Psoriasis Eczema Depression Chronic mental illness Mother Hypothyroidism Rheumatoid arthritis Brother In good health Paternal Aunt Breast cancer <COLE Mitchell - Last Filed: 08/01/21 02:09> Social History Social History: Social History Housing: House Alcohol intake: current Alcohol intake frequency: a few times a month Patient Tobacco Use Status: Never used Tobacco e-Cigarette/Vaping Use: Never Used Second Hand Smoke Exposure: No Advance Directives: No service: No Current occupational status: employed Cognitive needs: No Hearing needs: No Vision needs: No <COLE Mitchell - Last Filed: 08/01/21 02:09> Physical Exam ED Vital Signs: Vital Signs - 24 hr 08/01/21 01:27 08/01/21 03:09 Temperature 98.2 F Pulse Rate 97 Respiratory Rate 20 Blood Pressure 121/67 Pulse Oximetry 96 95 BMI result Body Mass Index 54.9 Vital signs stable. <COLE Mitchell - Last Filed: 08/01/21 02:09> Vital Signs - 24 hr 08/01/21 01:27 08/01/21 03:09 Temperature 98.2 F Pulse Rate 97 Respiratory Rate 20 Blood Pressure 121/67 Pulse Oximetry 96 95 BMI result Body Mass Index 54.9 <Leida Virgen MD - Last Filed: 08/01/21 04:00> Appearance: Alert.? Oriented X3.? No acute distress.? Patient speaking in full sentences, slightly muffled voice, controlling secretions well. Head: Normocephalic, atraumatic, no step-offs or deformities Eyes: Pupils equal, round and reactive to light.? ENT: Bilateral enlarged, erythematous and edematous tonsils with exudate. Midline uvula. Neck: Normal inspection.? Neck supple.? CVS: Normal heart rate and rhythm.? Pulses normal.? Respiratory: No respiratory distress.? Breath sounds normal.? No stridor Abdomen: Soft and nontender.? Skin: Skin warm and dry.? Normal skin color.? Normal skin turgor.? Extremities: No lower extremity edema.? No calf ttp. 5/5 strength to bilateral upper and lower extremities Back: No midline tenderness, no C-spine tenderness, full range of motion, no CVA tenderness bilaterally Neuro: Oriented X 3.? No motor deficit.? No sensory deficit. CN 2-12 intact <COLE Mitchell - Last Filed: 08/01/21 02:09> Course Reevaluation(s) Reevaluation #1: CBC within normal limits. Chemistry pending. Lactic pending. CT of neck soft tissues with contrast pending. At this time sign out was given to Dr. Virgen. At time that sign-out given patient is saturating well on room air, no acute distress, able to speak in full sentences. <COLE Mitchell - Last Filed: 08/01/21 02:09> Reevaluation #2: Patient's CT scan shows tonsillitis. Patient breathing comfortably, patient is able to swallow without any difficulty, no drooling. Patient will be discharged with a prescription for Augmentin. Patient instructed to discontinue taking amoxicillin. In the emergency room, patient received 1 dose of clindamycin IV while the results the CT scan and labs were pending <Leida Virgen MD - Last Filed: 08/01/21 04:00> Medical Decision Making MDM Narrative Medical decision making narrative: 014 31 yo f presents w/ ear pain, severe sore throat and shortness of breath. She was told earlier she had a bilateral ear infection and strep. Upon chart review it appears as though patient actually tested negative for strep throat. Physical examination significant for enlarged erythematous tonsils with exudates. Patient's speaking with a slightly muffled voice. Controlling secretions well. Lungs clear. Regular rate and rhythm. Abdomen soft nontender nondistended. Neuro exam nonfocal. Patient controlling her own airway well. Unlikely that this is epiglottitis, will rule out peritonsillar abscess by obtaining a CT of the soft tissues of neck with contrast. I will give patient clindamycin 600 mg IV now. Plan at this time is basic lab work, CT of neck and soft tissues with contrast to rule out peritonsillar abscess. I will also obtain a mono test as patient's strep test was negative. <COLE Mitchell - Last Filed: 08/01/21 02:09> Medical Records Medical records reviewed: Yes I reviewed the patient's medical records. <COLE Mitchell - Last Filed: 08/01/21 02:09> Lab Data Lab results reviewed: Yes I reviewed the patient's lab results. <COLE Mitchell - Last Filed: 08/01/21 02:09> Result diagrams: : 08/01/21 01:39 08/01/21 01:39 <COLE Mitchell - Last Filed: 08/01/21 02:09> Labs: Lab Results 08/01/21 08/01/21 08/01/21 Range/Units 01:39 01:39 02:07 WBC 10.7 (4.8-10.8) X10*3/uL RBC 4.63 (4.20-5.50) X10*6/uL Hgb 12.3 (12.0-16.0) g/dl Hct 38.5 (37.0-47.0) % MCV 83.2 (80.0-98.0) fL MCH 26.6 L (27.0-33.0) pg MCHC 31.9 (31.0-35.0) g/dl RDW 14.0 (11.0-16.0) % Plt Count 322 (160-400) X10*3/uL MPV 8.9 L (9.4-12.3) fL Immature Gran % (Auto) 0.7 H (0.0-0.4) % Neut % (Auto) 56.3 (45-73) % Lymph % (Auto) 30.8 (20-40) % [place] % (Auto) 8.4 (2-11) % Eos % (Auto) 3.3 (0-4) % Baso % (Auto) 0.5 (0-2) % Lymph # (Auto) 3.3 (1.2-4.9) X10*3/uL [place] # (Auto) 0.9 (0.1-1.2) X10*3/uL Eos # (Auto) 0.4 (0.0-0.4) X10*3/uL Baso # (Auto) 0.1 (0.0-0.2) X10*3/uL Abs Immat Gran (auto) 0.08 H (0.00-0.03) X10*3/uL Absolute Neuts (auto) 6.1 (2.0-8.3) x10*3/uL Absolute Nucleated RBC 0.000 (0.0-0.012) X10*3/uL Nucleated RBC % (auto) 0.0 (0.0-0.2) /100WBC Sodium 138 (135-145) mmol/L Potassium 4.1 (3.3-5.1) mmol/L Chloride 104 (96-108) mmol/L Carbon Dioxide 28 (22-29) mmol/L Anion Gap 10 L (12-20) BUN 7 L (9-16) mg/dL Creatinine 0.60 (0.5-1.4) mg/dL Estim Creat Clear Calc 205.4 Estimated GFR > 60 Random Glucose 109 (60-115) mg/dL Lactic Acid (0.5-2.0) mmol/L Calcium 9.0 (8.4-10.2) mg/dL Total Bilirubin 0.3 (0.0-1.0) mg/dL AST 16 (5-31) U/L ALT 25 (0-31) U/L Alkaline Phosphatase 74 (39-117) U/L Total Protein 7.1 (6.5-8.0) g/dL Albumin 3.7 (3.5-5.0) g/dL Beta HCG, Quant < 2 mIU/mL COVID-19 (HONEY) Negative (Negative) COVID-19 Clin Com See Note 08/01/21 Range/Units 02:07 WBC (4.8-10.8) X10*3/uL RBC (4.20-5.50) X10*6/uL Hgb (12.0-16.0) g/dl Hct (37.0-47.0) % MCV (80.0-98.0) fL MCH (27.0-33.0) pg MCHC (31.0-35.0) g/dl RDW (11.0-16.0) % Plt Count (160-400) X10*3/uL MPV (9.4-12.3) fL Immature Gran % (Auto) (0.0-0.4) % Neut % (Auto) (45-73) % Lymph % (Auto) (20-40) % [place] % (Auto) (2-11) % Eos % (Auto) (0-4) % Baso % (Auto) (0-2) % Lymph # (Auto) (1.2-4.9) X10*3/uL [place] # (Auto) (0.1-1.2) X10*3/uL Eos # (Auto) (0.0-0.4) X10*3/uL Baso # (Auto) (0.0-0.2) X10*3/uL Abs Immat Gran (auto) (0.00-0.03) X10*3/uL Absolute Neuts (auto) (2.0-8.3) x10*3/uL Absolute Nucleated RBC (0.0-0.012) X10*3/uL Nucleated RBC % (auto) (0.0-0.2) /100WBC Sodium (135-145) mmol/L Potassium (3.3-5.1) mmol/L Chloride (96-108) mmol/L Carbon Dioxide (22-29) mmol/L Anion Gap (12-20) BUN (9-16) mg/dL Creatinine (0.5-1.4) mg/dL Estim Creat Clear Calc Estimated GFR Random Glucose (60-115) mg/dL Lactic Acid 1.2 (0.5-2.0) mmol/L Calcium (8.4-10.2) mg/dL Total Bilirubin (0.0-1.0) mg/dL AST (5-31) U/L ALT (0-31) U/L Alkaline Phosphatase (39-117) U/L Total Protein (6.5-8.0) g/dL Albumin (3.5-5.0) g/dL Beta HCG, Quant mIU/mL COVID-19 (HONEY) (Negative) COVID-19 Clin Com <COLE Mitchell - Last Filed: 08/01/21 02:09> Lab Results 08/01/21 08/01/21 08/01/21 Range/Units 01:39 01:39 02:07 WBC 10.7 (4.8-10.8) X10*3/uL RBC 4.63 (4.20-5.50) X10*6/uL Hgb 12.3 (12.0-16.0) g/dl Hct 38.5 (37.0-47.0) % MCV 83.2 (80.0-98.0) fL MCH 26.6 L (27.0-33.0) pg MCHC 31.9 (31.0-35.0) g/dl RDW 14.0 (11.0-16.0) % Plt Count 322 (160-400) X10*3/uL MPV 8.9 L (9.4-12.3) fL Immature Gran % (Auto) 0.7 H (0.0-0.4) % Neut % (Auto) 56.3 (45-73) % Lymph % (Auto) 30.8 (20-40) % [place] % (Auto) 8.4 (2-11) % Eos % (Auto) 3.3 (0-4) % Baso % (Auto) 0.5 (0-2) % Lymph # (Auto) 3.3 (1.2-4.9) X10*3/uL [place] # (Auto) 0.9 (0.1-1.2) X10*3/uL Eos # (Auto) 0.4 (0.0-0.4) X10*3/uL Baso # (Auto) 0.1 (0.0-0.2) X10*3/uL Abs Immat Gran (auto) 0.08 H (0.00-0.03) X10*3/uL Absolute Neuts (auto) 6.1 (2.0-8.3) x10*3/uL Absolute Nucleated RBC 0.000 (0.0-0.012) X10*3/uL Nucleated RBC % (auto) 0.0 (0.0-0.2) /100WBC Sodium 138 (135-145) mmol/L Potassium 4.1 (3.3-5.1) mmol/L Chloride 104 (96-108) mmol/L Carbon Dioxide 28 (22-29) mmol/L Anion Gap 10 L (12-20) BUN 7 L (9-16) mg/dL Creatinine 0.60 (0.5-1.4) mg/dL Estim Creat Clear Calc 205.4 Estimated GFR > 60 Random Glucose 109 (60-115) mg/dL Lactic Acid (0.5-2.0) mmol/L Calcium 9.0 (8.4-10.2) mg/dL Total Bilirubin 0.3 (0.0-1.0) mg/dL AST 16 (5-31) U/L ALT 25 (0-31) U/L Alkaline Phosphatase 74 (39-117) U/L Total Protein 7.1 (6.5-8.0) g/dL Albumin 3.7 (3.5-5.0) g/dL Beta HCG, Quant < 2 mIU/mL COVID-19 (HONEY) Negative (Negative) COVID-19 Clin Com See Note 08/01/21 Range/Units 02:07 WBC (4.8-10.8) X10*3/uL RBC (4.20-5.50) X10*6/uL Hgb (12.0-16.0) g/dl Hct (37.0-47.0) % MCV (80.0-98.0) fL MCH (27.0-33.0) pg MCHC (31.0-35.0) g/dl RDW (11.0-16.0) % Plt Count (160-400) X10*3/uL MPV (9.4-12.3) fL Immature Gran % (Auto) (0.0-0.4) % Neut % (Auto) (45-73) % Lymph % (Auto) (20-40) % [place] % (Auto) (2-11) % Eos % (Auto) (0-4) % Baso % (Auto) (0-2) % Lymph # (Auto) (1.2-4.9) X10*3/uL [place] # (Auto) (0.1-1.2) X10*3/uL Eos # (Auto) (0.0-0.4) X10*3/uL Baso # (Auto) (0.0-0.2) X10*3/uL Abs Immat Gran (auto) (0.00-0.03) X10*3/uL Absolute Neuts (auto) (2.0-8.3) x10*3/uL Absolute Nucleated RBC (0.0-0.012) X10*3/uL Nucleated RBC % (auto) (0.0-0.2) /100WBC Sodium (135-145) mmol/L Potassium (3.3-5.1) mmol/L Chloride (96-108) mmol/L Carbon Dioxide (22-29) mmol/L Anion Gap (12-20) BUN (9-16) mg/dL Creatinine (0.5-1.4) mg/dL Estim Creat Clear Calc Estimated GFR Random Glucose (60-115) mg/dL Lactic Acid 1.2 (0.5-2.0) mmol/L Calcium (8.4-10.2) mg/dL Total Bilirubin (0.0-1.0) mg/dL AST (5-31) U/L ALT (0-31) U/L Alkaline Phosphatase (39-117) U/L Total Protein (6.5-8.0) g/dL Albumin (3.5-5.0) g/dL Beta HCG, Quant mIU/mL COVID-19 (HONEY) (Negative) COVID-19 Clin Com <Leida Virgen MD - Last Filed: 08/01/21 04:00> Imaging Data CT scan of soft tissue of the neck: Radiologist's impression: FINDINGS: No cervical adenopathy is identified. The parotid glands are homogeneous in attenuation. The submandibular glands are normal. No contour abnormality or pathologic enhancement is seen within the oral cavity or pharyngeal mucosal space. There is prominence of the bilateral palatine tonsils. The laryngeal structures are normal. The parapharyngeal fat is preserved. The carotid sheath vasculature opacify normally. No extra mucosal soft tissue mass or fluid collection is seen. No retropharyngeal fluid collection is seen. The thyroid gland is normal. The superior mediastinum is unremarkable. The lung apices are clear. The mastoid air cells and visualized portions of the paranasal sinuses are well-aerated. The temporomandibular joints are normal. No periapical disease is identified. No osseous abnormalities are seen. The imaged portions of the brain parenchyma are unremarkable. CT/CT soft tissue neck w con IMPRESSION: Bilateral tonsillar prominence suggestive of tonsillitis. No lymphadenopathy. The airway remains patent.? <Leida Virgen MD - Last Filed: 08/01/21 04:00> Critical Care Time Critical Care Time Critical Care Time: No <COLE Mitchell - Last Filed: 08/01/21 02:09> Discharge Plan Discharge Clinical Impression: Bilateral acute otitis media, Acute tonsillitis <COLE Mitchell - Last Filed: 08/01/21 02:09> Patient Disposition: Home, Self-Care <COLE Mitchell - Last Filed: 08/01/21 02:09> Instructions: Pharyngitis (ED), Ear Infection (ED) <COLE Mitchell - Last Filed: 08/01/21 02:09> Additional Instructions: Take your medications as prescribed. If you were prescribed antibiotics today, it is important that you take your medication to their entirety, do not skip any doses, do not finish them early. Follow-up with your primary care provider this week. Return to the emergency department with new or worsening symptoms. Such as fevers, chills, chest pain, shortness of breath, nausea, vomiting, dizziness, headache, vision changes, lethargy, difficulty swallowing, difficulty speaking, difficulty controlling secretions, weakness You can take ibuprofen every 6 hours, Tylenol every 4 as needed for fevers, body aches or pains. In case of emergency call 911 <COLE Mitchell Last Filed: 08/01/21 02:09> Prescriptions: New amoxicillin-pot clavulanate 875-125 mg tablet 1 tab PO BID 10 Days Qty: 20 0RF No Action trazodone 50 mg tablet 50 mg PO BEDTIME PRN (Reason: sleep) Qty: 30 0RF tramadol 50 mg tablet 50 mg PO Q8H PRN (Reason: severe pain (scale score 7-10)) Qty: 7 0RF amoxicillin 500 mg capsule 1,000 mg PO Q8H 10 Days Qty: 60 0RF <COLE Mitchell Last Filed: 08/01/21 02:09> Referrals: Kel Escalante MD [Primary Care Provider] - ED Physician,Generic [Physician] - 2 days <COLE Mitchell Last Filed: 08/01/21 02:09> Stand Alone Forms: Work/School Release <COLE Mitchell Last Filed: 08/01/21 02:09>
[2021-08-01 01:42] LABS: MANUAL DIFF FLAG NO
[2021-08-01 01:44] LABS: Basophils Absolute Auto 0.1 X10*3/uL (0.0-0.2); Basophils Percent Auto 0.5 % (0-2); Eosinophils Absolute Auto 0.4 X10*3/uL (0.0-0.4); Eosinophils Percent Auto 3.3 % (0-4); Hematocrit 38.5 % (37.0-47.0); Hemoglobin 12.3 g/dl (12.0-16.0); Imm Gran Abs Auto 0.08 X10*3/uL (0.00-0.03); Imm Gran Pct Auto 0.7 % (0.0-0.4); Lymphocytes Absolute Auto 3.3 X10*3/uL (1.2-4.9); Lymphocytes Percent Auto 30.8 % (20-40); Mean Corpuscular HGB Conc 31.9 g/dl (31.0-35.0); Mean Corpuscular Hemoglobin 26.6 pg (27.0-33.0); Mean Corpuscular Volume 83.2 fL (80.0-98.0); Mean Platelet Volume 8.9 fL (9.4-12.3); Monocytes Absolute Auto 0.9 X10*3/uL (0.1-1.2); Monocytes Percent Auto 8.4 % (2-11); Neutrophils Absolute Auto 6.1 x10*3/uL (2.0-8.3); Neutrophils Percent Auto 56.3 % (45-73); Platelet Count 322 X10*3/uL (160-400); Red Blood Count 4.63 X10*6/uL (4.20-5.50); White Blood Count 10.7 X10*3/uL (4.8-10.8)
[2021-08-01] MEDS: Clindamycin Phosphate/D5W 600 MG/50 ML PIGGYBACK 100 MG IV (02:07)
[2021-08-01 02:28] LABS: COVID-19 Test Negative (Negative)
[2021-08-01 02:52] LABS: Alanine Aminotransferase 25 U/L (0-31); Albumin Level 3.7 g/dL (3.5-5.0); Alkaline Phosphatase 74 U/L (39-117); Anion Gap 10 (12-20); Aspartate Amino Transferase 16 U/L (5-31); Bilirubin Total 0.3 mg/dL (0.0-1.0); Blood Urea Nitrogen 7 mg/dL (9-16); Carbon Dioxide 28 mmol/L (22-29); Chloride 104 mmol/L (96-108); Creatinine Clr Calc Pharmacy 205.4; Estimated Glomerular Filt Rate > 60; Glucose Random 109 mg/dL (60-115); Potassium 4.1 mmol/L (3.3-5.1); Sodium 138 mmol/L (135-145); Total Protein 7.1 g/dL (6.5-8.0)
[2021-08-01 02:53] LABS: HCG Quantitative < 2 mIU/mL
--- NOTE | 2021-08-01 02:55 | PC.NURSE ---
Pt resting on stretcher 98% on RA Tolerating antibiotics Will continue to monitor
[2021-08-01 02:59] LABS: Lactic Acid 1.2 mmol/L (0.5-2.0)
[2021-08-01 03:09] VITALS: O2SAT 95
[2021-08-01] MEDS: iohexoL 350 MG/ML 100 ML INFUS..BTL 85 ML IV (03:33)
[2021-08-01 04:06] VITALS: BP 120/68; PULSE 85; RESP 18; O2SAT 95
[2021-08-01] MEDS: Lidocaine HCl Viscous 2 % 15 ML SOLUTION MUCOUS MEM (04:13)
== END 2021-08-01 04:20 | disposition home or self-care (01) ==
PROVIDERS: Physician Assistant; Emergency Provider Emergency Medicine; PCP Internal Medicine
DX: H66.93 Otitis media, unspecified, bilateral (principal); J03.90 Acute tonsillitis, unspecified; R06.02 Shortness of breath; R50.9 Fever, unspecified; Z20.822 Contact with and (suspected) exposure to COVID-19; Z79.899 Other long term (current) drug therapy
CPT/HCPCS: 36415; 70491; 80053; 83605; 84702; 85025; 87040; 87635; 96365; 99283; 99284; Q9967

== ENCOUNTER 2021-08-06 08:36 | Outpatient (REF) | payer OTHER, SELFPAY | END 2021-08-06 08:37 | disposition home or self-care (01) | LOC: HO.LAB 08:36 | PROVIDERS: PCP Internal Medicine; Visit Provider Obstetrics & Gynecology | DX: N91.5 Oligomenorrhea, unspecified (principal); E66.01 Morbid (severe) obesity due to excess calories; G47.30 Sleep apnea, unspecified; Z68.43 Body mass index [BMI] 50.0-59.9, adult; Z88.8 Allergy status to other drugs, medicaments and biological substances; Z99.89 Dependence on other enabling machines and devices | CPT/HCPCS: 58100; 81025; 88305 ==

== ENCOUNTER → 2021-08-25 08:03 | Outpatient (BNVA) | payer OTHER, SELFPAY | PROVIDERS: PCP Internal Medicine; Visit Provider Obstetrics & Gynecology | DX: E28.2 Polycystic ovarian syndrome (principal) | CPT/HCPCS: 99212 ==

== ENCOUNTER 2021-10-14 22:52 | Emergency (ER) | payer OTHER, SELFPAY ==
[2021-10-15 00:28] VITALS: BP 117/71; PULSE 91; RESP 20; TEMP 36.9; O2SAT 98; BMI 54.1
[2021-10-15 00:41] LABS: Basophils Percent Auto 0.3 % (0-2); Eosinophils Absolute Auto 0.3 X10*3/uL (0.0-0.4); Eosinophils Percent Auto 3.1 % (0-4); Hematocrit 37.7 % (37.0-47.0); Hemoglobin 12.2 g/dl (12.0-16.0); Imm Gran Abs Auto 0.05 X10*3/uL (0.00-0.03); Imm Gran Pct Auto 0.5 % (0.0-0.4); Lymphocytes Absolute Auto 3.2 X10*3/uL (1.2-4.9); Lymphocytes Percent Auto 33.1 % (20-40); MANUAL DIFF FLAG NO; Mean Corpuscular HGB Conc 32.4 g/dl (31.0-35.0); Mean Corpuscular Hemoglobin 26.9 pg (27.0-33.0); Mean Corpuscular Volume 83.2 fL (80.0-98.0); Monocytes Absolute Auto 0.7 X10*3/uL (0.1-1.2); Monocytes Percent Auto 6.8 % (2-11); Neutrophils Absolute Auto 5.4 x10*3/uL (2.0-8.3); Neutrophils Percent Auto 56.2 % (45-73); Platelet Count 281 X10*3/uL (160-400); Red Blood Count 4.53 X10*6/uL (4.20-5.50); Red Cell Distribution Width 14.1 % (11.0-16.0); White Blood Count 9.5 X10*3/uL (4.8-10.8)
--- NOTE | 2021-10-15 00:51 | ED.FEMALEGU ---
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 Patient does have history of bipolar disorder psoriasis depression comes with the lower abdominal pain no nausea no vomiting no fever no any complaint ambulatory and steady gait no fever or chills Related Data Home Medications Medication Instructions Recorded Confirmed metformin 500 mg tablet,extended 500 mg PO QPM 09/15/21 release 24 hr Previous Rx's Medication Instructions Recorded cholecalciferol (vitamin D3) 50 50 mcg PO DAILY 90 days #90 caps 08/15/21 mcg (2,000 unit) capsule desogestrel 0.15 mg-ethinyl 1 tab PO DAILY 28 days #28 tabs 08/25/21 estradiol 0.03 mg tablet (Apri) amoxicillin 875 mg tablet 875 mg PO Q12H #14 tabs 09/15/21 fluticasone propionate 50 2 spray intranasal DAILY 1 month 09/15/21 mcg/actuation nasal #16 grams spray,suspension (Allergy Relief (fluticasone)) loratadine 10 mg tablet (Allergy 10 mg PO DAILY #30 tabs 09/15/21 Relief (loratadine)) trazodone 50 mg tablet 50 mg PO BEDTIME PRN sleep #30 tabs 10/01/21 tramadol 50 mg tablet 50 mg PO Q6H PRN pain #20 tabs 10/15/21 Allergies Allergy/AdvReac Type Severity Reaction Status Date / Time cortisone [CORTISONE] Allergy Unknown Anaphylaxis,hives,chest Verified 09/15/21 09:04 pain Review of Systems Review of Systems: Yes all other systems are reviewed and are negative PMFSH Past Medical History Medical History Allergic rhinitis Chronic tonsillar hypertrophy GERD (gastroesophageal reflux disease) Impaired fasting glucose Morbid obesity Morbid obesity with BMI of 50.0-59.9, adult Obstructive sleep apnea PCOS (polycystic ovarian syndrome) Sleep apnea with use of continuous positive airway pressure (CPAP) Surgical History History of incision and drainage Family History Family History Father Bipolar 1 disorder COPD (chronic obstructive pulmonary disease) Psoriasis Eczema Depression Chronic mental illness Mother Hypothyroidism Rheumatoid arthritis Brother In good health Paternal Aunt Breast cancer Social History Social History Housing: House Alcohol intake: current Alcohol intake frequency: a few times a month Patient Tobacco Use Status: Never used Tobacco e-Cigarette/Vaping Use: Never Used Second Hand Smoke Exposure: No Advance Directives: No service: No Current occupational status: employed Cognitive needs: No Hearing needs: No Vision needs: No Physical Exam Vital Signs: Vital Signs: Last Vital Signs Temp 98.4 F 10/15/21 00:28 Pulse 91 10/15/21 00:28 Resp 20 10/15/21 00:28 BP 117/71 10/15/21 00:28 Pulse Ox 98 10/15/21 00:28 O2 Del Method 10/15/21 00:28 BMI result Body Mass Index 54.1 Appearance: Alert. Oriented X3. No acute distress. Obese patient Eyes: PERRLA, No Nystagmus ENT: Pharynx normal. Oral Mucosa moist Neck: Normal inspection. Neck supple. CVS: Normal heart rate and rhythm. Pulses normal. Respiratory: No respiratory distress. Equal air entry bilateral, no wheezing/rales/rhonchi Abdomen: Soft , mild suprapubic tenderness, Bowel sounds are present, no mass palpable, no CVA tenderness Skin: Skin warm and dry. Normal skin color. Normal skin turgor. Extremities: No lower extremity edema. No calf tenderness Neuro: Oriented X 3. No motor deficit. 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 Result diagrams: 10/15/21 00:36 10/15/21 00:36 Labs: Lab Results 10/15/21 10/15/21 Range/Units 00:36 00:36 WBC 9.5 (4.8-10.8) X10*3/uL RBC 4.53 (4.20-5.50) X10*6/uL Hgb 12.2 (12.0-16.0) g/dl Hct 37.7 (37.0-47.0) % MCV 83.2 (80.0-98.0) fL MCH 26.9 L (27.0-33.0) pg MCHC 32.4 (31.0-35.0) g/dl RDW 14.1 (11.0-16.0) % Plt Count 281 (160-400) X10*3/uL MPV 9.0 L (9.4-12.3) fL Immature Gran % (Auto) 0.5 H (0.0-0.4) % Neut % (Auto) 56.2 (45-73) % Lymph % (Auto) 33.1 (20-40) % White % (Auto) 6.8 (2-11) % Eos % (Auto) 3.1 (0-4) % Baso % (Auto) 0.3 (0-2) % Lymph # (Auto) 3.2 (1.2-4.9) X10*3/uL [place] # (Auto) 0.7 (0.1-1.2) X10*3/uL Eos # (Auto) 0.3 (0.0-0.4) X10*3/uL Baso # (Auto) 0.0 (0.0-0.2) X10*3/uL Abs Immat Gran (auto) 0.05 H (0.00-0.03) X10*3/uL Absolute Neuts (auto) 5.4 (2.0-8.3) x10*3/uL Absolute Nucleated RBC 0.000 (0.0-0.012) X10*3/uL Nucleated RBC % (auto) 0.0 (0.0-0.2) /100WBC Sodium 139 (135-145) mmol/L Potassium 4.3 (3.3-5.1) mmol/L Chloride 105 (96-108) mmol/L Carbon Dioxide 27 (22-29) mmol/L Anion Gap 11 L (12-20) BUN 10 (9-16) mg/dL Creatinine 0.65 (0.5-1.4) mg/dL Estim Creat Clear Calc 187.8 Estimated GFR > 60 Random Glucose 146 H (60-115) mg/dL Calcium 8.7 (8.4-10.2) mg/dL Total Bilirubin 0.2 (0.0-1.0) mg/dL AST 12 (5-31) U/L ALT 17 (0-31) U/L Alkaline Phosphatase 62 (39-117) U/L Total Protein 6.8 (6.5-8.0) g/dL Albumin 3.7 (3.5-5.0) g/dL Discharge Plan Discharge Clinical Impression: PCOD (polycystic ovarian disease) Patient Disposition: Home, Self-Care Instructions: Ovarian Cyst (ED) Additional Instructions: Continue taking control pills Tramadol for severe pain Report to the ER if not better Prescriptions: New tramadol 50 mg tablet 50 mg PO Q6H PRN (Reason: pain) Qty: 20 0RF No Action trazodone 50 mg tablet 50 mg PO BEDTIME PRN (Reason: sleep) Qty: 30 1RF cholecalciferol (vitamin D3) 50 mcg (2,000 unit) capsule 50 mcg PO DAILY 90 Days Qty: 90 3RF metformin 500 mg tablet extended release 24 hr 500 mg PO QPM fluticasone propionate [Allergy Relief (fluticasone)] 50 mcg/actuation spray,suspension 2 spray intranasal DAILY 30 Days Qty: 16 7RF Rx Instructions: administer into each nostril loratadine [Allergy Relief (loratadine)] 10 mg tablet 10 mg PO DAILY Qty: 30 7RF amoxicillin 875 mg tablet 875 mg PO Q12H Qty: 14 0RF desogestrel-ethinyl estradiol [Apri] 0.15-0.03 mg tablet 1 tab PO DAILY 28 Days Qty: 28 2RF
[2021-10-15 01:03] LABS: Alanine Aminotransferase 17 U/L (0-31); Albumin Level 3.7 g/dL (3.5-5.0); Alkaline Phosphatase 62 U/L (39-117); Anion Gap 11 (12-20); Aspartate Amino Transferase 12 U/L (5-31); Bilirubin Total 0.2 mg/dL (0.0-1.0); Blood Urea Nitrogen 10 mg/dL (9-16); Calcium 8.7 mg/dL (8.4-10.2); Carbon Dioxide 27 mmol/L (22-29); Chloride 105 mmol/L (96-108); Creatinine Clr Calc Pharmacy 187.8; Estimated Glomerular Filt Rate > 60; Glucose Random 146 mg/dL (60-115); Potassium 4.3 mmol/L (3.3-5.1); Sodium 139 mmol/L (135-145); Total Protein 6.8 g/dL (6.5-8.0)
[2021-10-15 01:18] VITALS: BP 118/54; PULSE 86; RESP 16; TEMP 36.6; O2SAT 98
[2021-10-15 01:50] LABS: Appearance Urine HAZY; Color Urine YELLOW; Glucose Urine UA NEG (NEG); Leukocyte Esterase Urine NEG (NEG); Nitrite Urine NEG (NEG); Specific Gravity - Urine >= 1.030 (1.005-1.025); Urine Blood NEG (NEG); Urine Ketones NEG (NEG); Urine Protein TRACE MG/DL (NEG-TRACE)
[2021-10-15 01:55] LABS: UPreg QC Valid YES; Urine Pregnancy NEGATIVE (NEGATIVE)
[2021-10-15] MEDS: oxyCODONE HCl Immed Release 5 MG TABLET 10 MG PO (02:10)
== END 2021-10-15 04:36 | disposition home or self-care (01) ==
PROVIDERS: Emergency Provider Internal Medicine; PCP Internal Medicine
DX: E28.2 Polycystic ovarian syndrome (principal); R10.30 Lower abdominal pain, unspecified
CPT/HCPCS: 36415; 80053; 81003; 81025; 85025; 99283; 99284

== ENCOUNTER → 2021-11-25 07:56 | Outpatient (BNVA) | payer OTHER, SELFPAY | PROVIDERS: PCP Internal Medicine; Visit Provider Obstetrics & Gynecology | DX: E28.2 Polycystic ovarian syndrome (principal) | CPT/HCPCS: 99212 ==

== ENCOUNTER 2022-01-28 08:59 | Emergency (ER) | payer OTHER, SELFPAY ==
--- NOTE | ~2022-01-28 | CT_ITS ---
EXAMINATION: CT ABDOMEN AND PELVIS WITHOUT CONTRAST CLINICAL INFORMATION: Right lower quadrant pain COMPARISON: None TECHNIQUE: Multidetector volumetric imaging was performed from the superior aspect of the liver through the pubic symphysis. Sagittal and coronal reformatted images were obtained on the technologist's workstation. This CT examination was performed using dose optimization techniques as appropriate, variously including the following: *Automated exposure control *Adjustment of mA and/or kV according to patient size (this includes techniques or standardized protocols for targeted exams where dose is matched to indication/reason for exam; i.e. extremities or head) *Use of iterative reconstruction technique DLP: 1348 mGy-cm FINDINGS: LUNG BASES: The visualized lung bases are unremarkable. LIVER, GALLBLADDER, AND BILIARY TREE: The liver is normal in size, shape, and attenuation. No focal hepatic lesion or biliary ductal dilatation is present. The gallbladder is unremarkable with no evidence of radiopaque gallstones, gallbladder wall thickening, or obvious pericholecystic inflammatory changes. PANCREAS: Unremarkable. SPLEEN: Unremarkable. ADRENAL GLANDS: Unremarkable. KIDNEYS AND URETERS: The kidneys are normal in size, shape, and attenuation. No hydronephrosis or hydroureter. There are 2 left-sided renal calculi. The largest is seen at the mid to lower pole measuring 0.5 cm. This is 14 cm from the posterior axillary line. BLADDER: Decompressed with no gross abnormality. GASTROINTESTINAL TRACT: The stomach is unremarkable. Normal caliber small bowel. No obstruction. Normal appendix. No colonic wall thickening or inflammatory change. No free air or free fluid. ABDOMINAL WALL: No significant hernia is appreciated. LYMPH NODES: Normal. VASCULAR: Unremarkable. PELVIC VISCERA: The uterus and adnexa are unremarkable. OSSEOUS STRUCTURES: No acute or suspicious osseous abnormality. CT/CT abdomen pelvis wo IV con IMPRESSION: 1. No acute findings in the abdomen or pelvis. No inflammatory changes. Normal appendix. 2. Nonobstructing left renal calculi. Fleischner guidelines were followed.
--- NOTE | ~2022-01-28 | US_ITS ---
EXAMINATION: US PELVIS CLINICAL INFORMATION: Right lower quadrant pain COMPARISON: None TECHNIQUE: Ultrasound of the pelvis is performed using both transabdominal and transvaginal transducers along with Doppler. Transvaginal imaging is performed due to inadequate visualization transabdominally. FINDINGS: Uterus: The uterus is anteverted and measures 7.4 x 3.4 x 4.3 cm. Nabothian cysts at the cervix. The double wall endometrial thickness is 6 mm. The uterus is smooth in contour and has normal myometrial echogenicity. No visible fibroid. Adnexa: Both ovaries are visualized. There is normal color flow to the adnexa. There is no ovarian torsion. There is no pelvic ascites or fluid collection. Normal arterial and venous spectral waveforms bilaterally. Right ovary measures 3.6 x 2.3 x 2.4 cm. Left ovary measures 3.7 x 2.7 x 2.6 cm. US/US pelvic ovarian doppler IMPRESSION: Normal pelvic ultrasound. No evidence of active ovarian torsion at this time.
--- NOTE | ~2022-01-28 | US_ITS ---
EXAMINATION: US PELVIS CLINICAL INFORMATION: Right lower quadrant pain COMPARISON: None TECHNIQUE: Ultrasound of the pelvis is performed using both transabdominal and transvaginal transducers along with Doppler. Transvaginal imaging is performed due to inadequate visualization transabdominally. FINDINGS: Uterus: The uterus is anteverted and measures 7.4 x 3.4 x 4.3 cm. Nabothian cysts at the cervix. The double wall endometrial thickness is 6 mm. The uterus is smooth in contour and has normal myometrial echogenicity. No visible fibroid. Adnexa: Both ovaries are visualized. There is normal color flow to the adnexa. There is no ovarian torsion. There is no pelvic ascites or fluid collection. Normal arterial and venous spectral waveforms bilaterally. Right ovary measures 3.6 x 2.3 x 2.4 cm. Left ovary measures 3.7 x 2.7 x 2.6 cm. US/US pelvic and transvaginal IMPRESSION: Normal pelvic ultrasound. No evidence of active ovarian torsion at this time.
[2022-01-28 10:14] VITALS: BP 134/73; PULSE 77; RESP 20; TEMP 36.6; O2SAT 98; BMI 53.2
[2022-01-28 11:01] LABS: Appearance Urine Clear; Color Urine Yellow; Glucose Urine UA Negative (Negative); Leukocyte Esterase Urine Negative (Negative); Nitrite Urine Negative (Negative); PH 6.5 (5.0-9.0); UPreg QC Valid YES; Urine Blood Negative (Negative); Urine Ketones Negative (Negative); Urine Pregnancy NEGATIVE (NEGATIVE); Urine Protein Negative (Neg-Trace)
[2022-01-28 12:31] LABS: MANUAL DIFF FLAG NO
[2022-01-28 12:35] LABS: Basophils Absolute Auto 0.1 X10*3/uL (0.0-0.2); Basophils Percent Auto 0.7 % (0-2); Eosinophils Absolute Auto 0.3 X10*3/uL (0.0-0.4); Eosinophils Percent Auto 2.6 % (0-4); Hematocrit 40.4 % (37.0-47.0); Hemoglobin 13.3 g/dl (12.0-16.0); Imm Gran Pct Auto 0.8 % (0.0-0.4); Lymphocytes Absolute Auto 3.6 X10*3/uL (1.2-4.9); Lymphocytes Percent Auto 29.2 % (20-40); Mean Corpuscular HGB Conc 32.9 g/dl (31.0-35.0); Mean Corpuscular Hemoglobin 27.5 pg (27.0-33.0); Mean Corpuscular Volume 83.5 fL (80.0-98.0); Mean Platelet Volume 9.2 fL (9.4-12.3); Monocytes Absolute Auto 0.9 X10*3/uL (0.1-1.2); Monocytes Percent Auto 7.7 % (2-11); Neutrophils Absolute Auto 7.2 x10*3/uL (2.0-8.3); Platelet Count 354 X10*3/uL (160-400); Red Blood Count 4.84 X10*6/uL (4.20-5.50); Red Cell Distribution Width 14.1 % (11.0-16.0); White Blood Count 12.2 X10*3/uL (4.8-10.8)
[2022-01-28 12:51] LABS: Alanine Aminotransferase 25 U/L (0-31); Albumin Level 4.1 g/dL (3.5-5.0); Alkaline Phosphatase 63 U/L (39-117); Anion Gap 14 (12-20); Aspartate Amino Transferase 16 U/L (5-31); Bilirubin Direct 0.2 mg/dL (0.0-0.5); Bilirubin Total 0.4 mg/dL (0.0-1.0); Blood Urea Nitrogen 9 mg/dL (9-16); Calcium 9.1 mg/dL (8.4-10.2); Carbon Dioxide 26 mmol/L (22-29); Chloride 102 mmol/L (96-108); Creatinine Clr Calc Pharmacy 191.8; Estimated Glomerular Filt Rate > 60; Glucose Random 108 mg/dL (60-115); Potassium 4.2 mmol/L (3.3-5.1); Sodium 138 mmol/L (135-145); Total Protein 7.3 g/dL (6.5-8.0)
--- NOTE | 2022-01-28 14:51 | ED.GENADULT ---
HPI - General Adult General Chief complaint: General Medical Stated complaint: r side pain vomiting blood Time Seen by Provider: 01/28/22 13:47 Source: patient Mode of arrival: ambulatory History of Present Illness HPI narrative: 31-year-old female with known PCOS presents with right lower quadrant discomfort since last night with associated nausea and then this morning threw up at work and denies any fever, chills. Related Data Previous Rx's Medication Instructions Recorded desogestrel 0.15 mg-ethinyl 1 tab PO DAILY 28 days #28 tabs 11/25/21 estradiol 0.03 mg tablet (Apri) trazodone 50 mg tablet 50 mg PO BEDTIME PRN sleep #30 tabs 01/01/22 metformin 500 mg tablet,extended 500 mg PO QPM #90 tabs 01/07/22 release 24 hr Allergies Allergy/AdvReac Type Severity Reaction Status Date / Time cortisone [CORTISONE] Allergy Unknown Anaphylaxis,hives,chest Verified 01/28/22 10:14 pain succinylcholine AdvReac Severe Unresponsiv Verified 01/28/22 10:14 e Review of Systems Review of Systems: Pertinent positives and negatives as stated in HPI 10 point review of systems is otherwise negative. PMFSH Past Medical History Source: nursing notes reviewed Medical History Allergic rhinitis Chronic tonsillar hypertrophy GERD (gastroesophageal reflux disease) Impaired fasting glucose Morbid obesity Morbid obesity with BMI of 50.0-59.9, adult Obstructive sleep apnea PCOS (polycystic ovarian syndrome) Pseudocholinesterase deficiency Sleep apnea with use of continuous positive airway pressure (CPAP) Surgical History History of incision and drainage S/P tonsillectomy (~12/11/21) Family History Family History Father Bipolar 1 disorder COPD (chronic obstructive pulmonary disease) Psoriasis Eczema Depression Chronic mental illness Mother Hypothyroidism Rheumatoid arthritis Brother In good health Paternal Aunt Breast cancer Social History Social History Housing: House Alcohol intake: former Patient Tobacco Use Status: Never used Tobacco e-Cigarette/Vaping Use: Never Used Second Hand Smoke Exposure: No Advance Directives: No service: No Current occupational status: employed Cognitive needs: No Hearing needs: No Vision needs: No Physical Exam ED Vital Signs: Vital Signs - 24 hr 01/28/22 10:14 Temperature 97.8 F Pulse Rate 77 Respiratory Rate 20 Blood Pressure 134/73 Pulse Oximetry 98 Oxygen Delivery Method Room Air BMI result Body Mass Index 53.2 VITAL SIGNS: Reviewed. GENERAL: Elevated BMI, Well developed, well nourished, in no acute distress. HEAD: Normocephalic/atraumatic EYES: PERRLA, EOMI EARS: Ext canals without abnormality OROPHARYNX: no oral lesions noted, posterior pharynx clear LUNGS: Normal breath sounds. No adventitious sounds or accessory muscle use. SpO2<98> CARDIOVASCULAR: Regular rate and rhythm without noted murmurs ABDOMEN: Soft, non-tender, non-distended with bowel sounds, exam is somewhat limited secondary to habitus MUSCULOSKELETAL: No tenderness, deformities, or effusions noted on gross inspection. EXTREMITIES: No cyanosis, clubbing or edema. SKIN: Inspection of the skin reveals no rashes NEUROLOGIC: Alert and oriented x 4. Strength and sensation to light touch were grossly intact x 4. Course Course Course Narrative: 31-year-old female with history and clinical presentation for which we will rule out renal colic, ectopic, UTI, appendicitis, ovarian torsion. Review of all investigations otherwise negative for acute findings to better explain patient's pain. The noted leukocytosis is likely reactive to patient's isolated episode of nausea and vomiting. Medical Decision Making Lab Data Result diagrams: 01/28/22 12:27 01/28/22 12:27 Labs: Lab Results 01/28/22 01/28/22 01/28/22 Range/Units 10:46 10:46 12:27 WBC 12.2 H (4.8-10.8) X10*3/uL RBC 4.84 (4.20-5.50) X10*6/uL Hgb 13.3 (12.0-16.0) g/dl Hct 40.4 (37.0-47.0) % MCV 83.5 (80.0-98.0) fL MCH 27.5 (27.0-33.0) pg MCHC 32.9 (31.0-35.0) g/dl RDW 14.1 (11.0-16.0) % Plt Count 354 D (160-400) X10*3/uL MPV 9.2 L (9.4-12.3) fL Immature Gran % (Auto) 0.8 H (0.0-0.4) % Neut % (Auto) 59.0 (45-73) % Lymph % (Auto) 29.2 (20-40) % [place] % (Auto) 7.7 (2-11) % Eos % (Auto) 2.6 (0-4) % Baso % (Auto) 0.7 (0-2) % Lymph # (Auto) 3.6 (1.2-4.9) X10*3/uL [place] # (Auto) 0.9 (0.1-1.2) X10*3/uL Eos # (Auto) 0.3 (0.0-0.4) X10*3/uL Baso # (Auto) 0.1 (0.0-0.2) X10*3/uL Abs Immat Gran (auto) 0.10 H (0.00-0.03) X10*3/uL Absolute Neuts (auto) 7.2 (2.0-8.3) x10*3/uL Absolute Nucleated RBC 0.000 (0.0-0.012) X10*3/uL Nucleated RBC % (auto) 0.0 (0.0-0.2) /100WBC Sodium (135-145) mmol/L Potassium (3.3-5.1) mmol/L Chloride (96-108) mmol/L Carbon Dioxide (22-29) mmol/L Anion Gap (12-20) BUN (9-16) mg/dL Creatinine (0.5-1.4) mg/dL Estim Creat Clear Calc Estimated GFR Random Glucose (60-115) mg/dL Calcium (8.4-10.2) mg/dL Total Bilirubin (0.0-1.0) mg/dL Direct Bilirubin (0.0-0.5) mg/dL AST (5-31) U/L ALT (0-31) U/L Alkaline Phosphatase (39-117) U/L Total Protein (6.5-8.0) g/dL Albumin (3.5-5.0) g/dL Urine Color Yellow Urine Appearance Clear Urine pH 6.5 (5.0-9.0) Ur Specific [place] 1.020 (1.005-1.025) Urine Protein Negative (Neg-Trace) mg/dL Urine Glucose (UA) Negative (Negative) mg/dL Urine Ketones Negative (Negative) mg/dL Urine Blood Negative (Negative) Urine Nitrite Negative (Negative) Ur Leukocyte Esterase Negative (Negative) Urine Test NEGATIVE (NEGATIVE) 01/28/22 Range/Units 12:27 WBC (4.8-10.8) X10*3/uL RBC (4.20-5.50) X10*6/uL Hgb (12.0-16.0) g/dl Hct (37.0-47.0) % MCV (80.0-98.0) fL MCH (27.0-33.0) pg MCHC (31.0-35.0) g/dl RDW (11.0-16.0) % Plt Count (160-400) X10*3/uL MPV (9.4-12.3) fL Immature Gran % (Auto) (0.0-0.4) % Neut % (Auto) (45-73) % Lymph % (Auto) (20-40) % [place] % (Auto) (2-11) % Eos % (Auto) (0-4) % Baso % (Auto) (0-2) % Lymph # (Auto) (1.2-4.9) X10*3/uL [place] # (Auto) (0.1-1.2) X10*3/uL Eos # (Auto) (0.0-0.4) X10*3/uL Baso # (Auto) (0.0-0.2) X10*3/uL Abs Immat Gran (auto) (0.00-0.03) X10*3/uL Absolute Neuts (auto) (2.0-8.3) x10*3/uL Absolute Nucleated RBC (0.0-0.012) X10*3/uL Nucleated RBC % (auto) (0.0-0.2) /100WBC Sodium 138 (135-145) mmol/L Potassium 4.2 (3.3-5.1) mmol/L Chloride 102 (96-108) mmol/L Carbon Dioxide 26 (22-29) mmol/L Anion Gap 14 (12-20) BUN 9 (9-16) mg/dL Creatinine 0.63 (0.5-1.4) mg/dL Estim Creat Clear Calc 191.8 Estimated GFR > 60 Random Glucose 108 (60-115) mg/dL Calcium 9.1 (8.4-10.2) mg/dL Total Bilirubin 0.4 (0.0-1.0) mg/dL Direct Bilirubin 0.2 (0.0-0.5) mg/dL AST 16 (5-31) U/L ALT 25 (0-31) U/L Alkaline Phosphatase 63 (39-117) U/L Total Protein 7.3 (6.5-8.0) g/dL Albumin 4.1 (3.5-5.0) g/dL Urine Color Urine Appearance Urine pH (5.0-9.0) Ur Specific [place] (1.005-1.025) Urine Protein (Neg-Trace) mg/dL Urine Glucose (UA) (Negative) mg/dL Urine Ketones (Negative) mg/dL Urine Blood (Negative) Urine Nitrite (Negative) Ur Leukocyte Esterase (Negative) Urine Test (NEGATIVE) Discharge Plan Discharge Clinical Impression: Abdominal pain Patient Disposition: Home, Self-Care Instructions: Abdominal Pain (ED) Additional Instructions: 1. Resume all home medications as prescribed. Recommend [id number] Tylenol/ibuprofen as needed for pain control and in addition you can try to use a heating pad for additional symptom relief. 2. Follow-up with your primary care provider for re-evaluation and further outpatient management. Return to the ER for worsening symptoms. Prescriptions: No Action trazodone 50 mg tablet 50 mg PO BEDTIME PRN (Reason: sleep) Qty: 30 1RF metformin 500 mg tablet extended release 24 hr 500 mg PO QPM Qty: 90 0RF desogestrel-ethinyl estradiol [Apri] 0.15-0.03 mg tablet 1 tab PO DAILY 28 Days Qty: 28 9RF Referrals: Kel Escalante MD [Primary Care Provider] -
[2022-01-28] MEDS: Ibuprofen 400 MG TABLET PO (16:34)
[2022-01-28] MEDS: Acetaminophen 325 MG TABLET 975 MG PO (16:35)
== END 2022-01-28 16:47 | disposition home or self-care (01) ==
PROVIDERS: Emergency Provider Student in an Organized Health Care Education/Training Program; PCP Internal Medicine
DX: R10.31 Right lower quadrant pain (principal); E66.01 Morbid (severe) obesity due to excess calories; Z68.43 Body mass index [BMI] 50.0-59.9, adult
CPT/HCPCS: 36415; 74176; 76830; 76856; 80048; 80076; 81003; 81025; 85025; 93975; 99284

== ENCOUNTER 2022-09-02 09:20 | Outpatient (REF) | payer OTHER, SELFPAY ==
[2022-09-02 11:13] LABS: MANUAL DIFF FLAG NO
[2022-09-02 11:17] LABS: Appearance Urine Cloudy; Color Urine Yellow; Glucose Urine UA Negative (Negative); Leukocyte Esterase Urine Negative (Negative); Nitrite Urine Negative (Negative); Urine Blood Negative (Negative); Urine Ketones Negative (Negative); Urine Protein Trace mg/dL (Neg-Trace)
[2022-09-02 11:34] LABS: Basophils Absolute Auto 0.1 X10*3/uL (0.0-0.2); Basophils Percent Auto 0.6 % (0-2); Eosinophils Absolute Auto 0.2 X10*3/uL (0.0-0.4); Hematocrit 40.6 % (37.0-47.0); Hemoglobin 13.2 g/dl (12.0-16.0); Imm Gran Abs Auto 0.06 X10*3/uL (0.00-0.03); Imm Gran Pct Auto 0.7 % (0.0-0.4); Lymphocytes Absolute Auto 2.6 X10*3/uL (1.2-4.9); Mean Corpuscular HGB Conc 32.5 g/dl (31.0-35.0); Mean Corpuscular Hemoglobin 27.2 pg (27.0-33.0); Mean Corpuscular Volume 83.5 fL (80.0-98.0); Mean Platelet Volume 9.8 fL (9.4-12.3); Monocytes Absolute Auto 0.4 X10*3/uL (0.1-1.2); Monocytes Percent Auto 4.6 % (2-11); Neutrophils Absolute Auto 5.7 x10*3/uL (2.0-8.3); Neutrophils Percent Auto 63.1 % (45-73); Platelet Count 353 X10*3/uL (160-400); Red Blood Count 4.86 X10*6/uL (4.20-5.50); Red Cell Distribution Width 13.2 % (11.0-16.0); White Blood Count 9.1 X10*3/uL (4.8-10.8)
[2022-09-02 11:43] LABS: Alanine Aminotransferase 17 U/L (0-31); Albumin Level 3.7 g/dL (3.5-5.0); Alkaline Phosphatase 59 U/L (39-117); Anion Gap 11 (12-20); Aspartate Amino Transferase 13 U/L (5-31); Bilirubin Total 0.4 mg/dL (0.0-1.0); Blood Urea Nitrogen 9 mg/dL (9-16); Calcium 9.2 mg/dL (8.4-10.2); Carbon Dioxide 28 mmol/L (22-29); Chloride 106 mmol/L (96-108); Cholesterol 166 mg/dL; Estimated Glomerular Filt Rate > 60; Glucose Fasting 122 mg/dL (60-99); Glucose Random 122 mg/dL (60-115); HDL Cholesterol 36 mg/dL; LDL Cholesterol Calculated 94 mg/dl; Potassium 4.6 mmol/L (3.3-5.1); Sodium 140 mmol/L (135-145); Triglycerides 184 mg/dL
[2022-09-02 11:45] LABS: Estimated Average Glucose 114 mg/dL; Hemoglobin A1C 137.2955 umol/L; Hemoglobin A1c % 5.6 %
[2022-09-02 12:32] LABS: Microalbum/Creatinine Ratio Ur 60.1 ug/mg cr
[2022-09-02 12:59] LABS: TSH reflex Free T4 1.33 uIU/mL (0.32-4.0); Vitamin D 25-OH Total 27.3 ng/mL (>30)
== END 2022-09-02 09:21 | disposition home or self-care (01) ==
LOC: HO.HMGCLDS 09:20
PROVIDERS: PCP Internal Medicine; Visit Provider Internal Medicine
DX: Z00.00 Encounter for general adult medical examination without abnormal findings (principal); R73.01 Impaired fasting glucose; R30.0 Dysuria; E28.2 Polycystic ovarian syndrome; E66.01 Morbid (severe) obesity due to excess calories; Z68.43 Body mass index [BMI] 50.0-59.9, adult; E78.00 Pure hypercholesterolemia, unspecified; E55.9 Vitamin D deficiency, unspecified
CPT/HCPCS: 36415; 80053; 80061; 81003; 82043; 82306; 83036; 84443; 85025

== ENCOUNTER 2022-11-04 15:33 | Outpatient (AMB) | payer OTHER, SELFPAY ==
[2022-11-04 15:42] VITALS: BP 126/76; PULSE 84; O2SAT 96; BMI 54.8
--- NOTE | 2022-11-04 15:42 | MHC.PC.OV ---
Vital Signs 11/04/22 15:42 Height 5 ft 5 in Weight 329 lb 4 oz BMI 54.8 BP 126/76 Blood Pressure Location Lt brachial Position Sitting Pulse 84 Pulse Source Pulse Oximeter Pulse Oximetry (%) 96 Oxygen Delivery Method Room Air Intake Visit Reasons: To check a1c Associate Vice President Required: No Accompanied by: Self / Same As Patient Allergies cortisone [CORTISONE] Allergy (Unknown, Verified 11/09/22 01:12) Anaphylaxis,hives,chest pain succinylcholine Adverse Reaction (Severe, Verified 11/09/22 01:12) Unresponsive Medication List - Last Reconciled 11/09/22 by Kel Escalante MD desogestrel-ethinyl estradiol 0.15-0.03 mg (Apri) 1 tab PO DAILY 28 days metformin ER 500 mg PO QPM 90 days nystatin 1 appl topical BID 2 weeks ondansetron 4 mg PO Q8H PRN 10 days semaglutide (Ozempic) 0.25 mg (0.4 mL) subcut QWEEK trazodone 100 mg PO BEDTIME PRN 30 days Tobacco use date assessed: 11/04/22 Dental Screening Dental Screen Date: 11/04/22 Did you have a dental visit in the last 12 months?: No Did you have a dental problem in the last 6 months where you did not have access to dental care?: No Was dental information given to patient?: Patient has dentist HPI To check a1c HPI Details Patient comes in today for her follow up visit States that she currently feels okay but recalls that she was at work one day early last month when she suddenly felt ill - was experiencing fever, malaise and fatigue, nausea and headaches Went to the ER for further evaluation - work ups done were all unrevealing Was diagnosed with acute viral syndrome and she was eventually discharged home with instructions to just take OTC meds PRN for symptomatic relief States that her symptoms gradually cleared up 1 to 2 days later and have not recurred since Patient currently denies any fever, headaches or dizziness Denies any chest pains, no shortness of breath No nausea / vomiting, no abdominal pain No change in bowel habits noted States that she has had to take 2 tablets (100 mg) of her Trazodone to be able to sleep at night for the past few weeks now the 50 mg dose did not help much Needs her Metformin Rx refilled but would like to see if she can be started instead on Ozempic so she can lose some weight Would also like to know how her labs done a couple of months ago came out [facility] Medical History Allergic rhinitis Chronic tonsillar hypertrophy GERD (gastroesophageal reflux disease) Impaired fasting glucose Morbid obesity Morbid obesity with BMI of 50.0-59.9, adult Obstructive sleep apnea PCOS (polycystic ovarian syndrome) Pseudocholinesterase deficiency Sleep apnea with use of continuous positive airway pressure (CPAP) Surgical History History of incision and drainage S/P tonsillectomy (~12/11/21) Family History Father Bipolar 1 disorder COPD (chronic obstructive pulmonary disease) Psoriasis Eczema Depression Chronic mental illness Mother Hypothyroidism Rheumatoid arthritis Brother In good health Paternal Aunt Breast cancer Social History Housing: House Alcohol intake: former Patient Tobacco Use Status: Never used Tobacco e-Cigarette/Vaping Use: Never Used Second Hand Smoke Exposure: No service: No Current occupational status: employed Cognitive needs: No Hearing needs: No Vision needs: No Female Reproductive History Menstrual Age of Menarche: 11 Questionnaire PHQ-9 Over the last 2 weeks, how often have you been bothered by any of the following problems? 1. Little interest or pleasure in doing things: not at all 2. Feeling down, depressed, or hopeless: not at all 3. Trouble falling or staying asleep, or sleeping too much: not at all 4. Feeling tired or having little energy: not at all 5. Poor appetite or overeating: not at all 6. Feeling bad about yourself - or that you are a failure or have let yourself or your family down: not at all 7. Trouble concentrating on things, such as reading the newspaper or watching television: not at all 8. Moving or speaking so slowly that other people could have noticed. Or the opposite - being so fidgety or restless that you have been moving around a lot more than usual: not at all 9. Thoughts that you would be better off or of hurting yourself in some way: not at all Total score: 0 Depression Screening Interpretation: Negative 81297 - PHQ-9 Billing: Yes Source: Developed by Drs. Joe Hammond, Iman Montenegro, Aristeo Wright and colleagues, with an educational rob from [employer]. Thrive Questionnaire Date Thrive assessed: 11/04/22 I am a: Patient What is your living situation today?: I have a steady place to live Within the past 12 months, did the food you bought not last and you didn't have the money to get more?: Never true Within the past 12 months, did you worry whether your food would run out before you got money to buy more?: Never true Do you have trouble paying for medicines?: No Do you have trouble getting transportation to medical appointments?: No Do you have trouble paying your heating and electricity bill?: No Do you have trouble taking care of your child, family member or friend?: No Do you have trouble with day-to-day activities such as bathing, preparing meals, shopping, managing finances, etc.?: No Are you currently unemployed and looking for a job?: No Are you interested in more education?: No Please select the resources that you would like help with: None Currently or been in a relationship where the following occur: no concerns reported AUDIT C Alcohol Use Questionnaire (AUDIT-C) 1. How often do you have a drink containing alcohol?: 2-4 times a month 2. How many drinks containing alcohol do you have on a typical day when you are drinking?: 1 or 2 3. How often do you have six or more drinks on one occasion?: Never Total Score: 2 Score Reviewed/Action Taken: Yes EDUARDO-7 AMB Questionnaire EDUARDO-7 Date EDUARDO - 7 assessed: 11/04/22 Feeling nervous, anxious, or on edge: 0 = Not at all Not being able to stop or control worryin = Not at all Worrying too much about different things: 0 = Not at all Trouble relaxin = Not at all Being so restless that it is hard to sit still: 0 = Not at all Becoming easily annoyed or irritable: 0 = Not at all Feeling afraid as if something awful might happen: 0 = Not at all Total EDUARDO-7 score (0-4 normal; 5-9 mild; 10-14 moderate; 15-21 severe): 0 Source: Developed by Drs. Joe Hammond, Iman Montenegro, Aristeo Wright and colleagues, with an educational rob from [employer]. Review of Systems Const Denies chills, Reports difficulty sleeping, Denies fatigue, Denies fever(s) and Denies headache(s) ENT Denies dysphagia, Denies dizziness, Denies otalgia, Denies headache(s), Denies odynophagia and Denies sore throat Card Denies chest pain, Denies palpitations and Denies dyspnea Resp Denies cough and Denies dyspnea GI Denies abdominal pain, Denies constipation, Denies dysphagia, Denies heartburn, Denies diarrhea, Denies nausea, Denies odynophagia and Denies vomiting Denies difficulty voiding, Denies nocturia and Denies dysuria Neuro Denies dizziness and Denies headache(s) Endo Denies fatigue and Denies palpitations Physical exam (Primary Care) Vital Signs: Last Vital Signs Pulse 84 11/04/22 15:42 BP 126/76 11/04/22 15:42 Pulse Ox 96 11/04/22 15:42 Oxygen Delivery Method Room Air 11/04/22 15:42 BMI result Body Mass Index 54.8 Tobacco/Smoking Status: Tobacco use Status Tobacco use date assessed 11/04/22 11/04/22 15:47 Patient Tobacco Use Status Never used Tobacco 11/04/22 15:47 e-Cigarette/Vaping Use Never Used 11/04/22 15:47 PHQ-9: PHQ-9 Score PHQ-9: Total score 0 11/04/22 16:23 Depression Screening Interpretation: Negative Thrive Assessment: Date of Thrive Assessment Date Thrive assessed 11/04/22 11/04/22 15:47 Currently or been in a relationship where the following occur: no concerns reported Const General: no acute distress and alert HENMT Ears: TM's normal bilaterally and EAC's normal Throat: Yes posterior oropharynx normal and Yes tonsils normal (no TP congestion) Neck Neck: Yes no lymphadenopathy and Yes supple Resp Auscultation: clear to auscultation bilaterally, no rales and no wheezes Cardio Rate: regular rate Rhythm: regular rhythm Heart sounds: no murmurs GI Palpation (GI): Soft to palpation, nontender and No hepatosplenomegaly present Skin General skin exam: no rashes or lesions noted Extrem General: Yes no clubbing, cyanosis or edema Results Reviewed Results Reviewed: Laboratory Tests 09/02/22 09/02/22 09/02/22 09:26 09:26 09:26 WBC 9.1 Hgb 13.2 Hct 40.6 Plt Count 353 Sodium 140 Potassium 4.6 Creatinine 0.71 Estimated GFR > 60 Fasting Glucose 122 H Hemoglobin A1c % 5.6 Calcium 9.2 AST 13 ALT 17 Triglycerides 184 Cholesterol 166 LDL Cholesterol, Calc 94 HDL Cholesterol 36 25-OH Vitamin D Total TSH Ur Specific [place] Urine Protein Urine Glucose (UA) Urine Blood Microalb/Creat Ratio 09/02/22 09/02/22 09/02/22 09:26 09:30 09:30 WBC Hgb Hct Plt Count Sodium Potassium Creatinine Estimated GFR Fasting Glucose Hemoglobin A1c % Calcium AST ALT Triglycerides Cholesterol LDL Cholesterol, Calc HDL Cholesterol 25-OH Vitamin D Total 27.3 TSH 1.33 Ur Specific [place] 1.020 Urine Protein Trace Urine Glucose (UA) Negative Urine Blood Negative Microalb/Creat Ratio 60.1 Assessment and Plan Assessment & Plan (1) Impaired fasting glucose: Code(s): R73.01 - Impaired fasting glucose Plan: HgbA1c was at 5.6% on her labs done a couple of months ago; in-office HgbA1c was at 5.8% when previously checked Reinforced diabetic/low calorie diet Is currently on Metformin ER 500 mg Q PM (was started on Tx as early treatment has been shown to decrease risks of progression to jaymie diabetes) but patient asked to see if she can be possibly tried on Ozempic instead to also help her lose some weight Advised that we can try to switch her over to Ozempic IF her insurance will approve the Rx - reminded to STOP taking Metformin ER if her Ozempic Rx goies through and she should start it at 0.25 mg SQ once a week BUT to continue on Metformin ER 500 mg Q PM IF her insurance denies her Ozempic Rx Results of her labs done a couple of months ago reviewed and discussed with patient Will recheck her labs, FBS and HgbA1c in 4 months for follow up (2) Migraine: Code(s): G43.909 - Migraine, unspecified, not intractable, without status migrainosus Qualifiers: Intractability: not intractable Migraine type: unspecified Status migrainosus presence: without status migrainosus Qualified Code(s): G43.909 - Migraine, unspecified, not intractable, without status migrainosus Plan: Reinforced avoidance of any potential migraine triggers Continue Fioricet 1 tablet 2 to 3 times a day as needed (3) Obstructive sleep apnea: Code(s): G47.33 - Obstructive sleep apnea (adult) (pediatric) Plan: Was using her CPAP device when sleeping at night daily previously with good results but patient states that she has not used her device since she had her tonsillectomy done last December 2021 and appears to be doing very well OFF her CPAP, with no daytime somnolence or fatigue experienced lately (4) Chronic tonsillar hypertrophy: Code(s): J35.1 - Hypertrophy of tonsils Plan: Resolved - S/P tonsillectomy at [facility] on 12/11/2021 Follow up with ENT as scheduled/as needed (5) Pseudocholinesterase deficiency: Code(s): E88.09 - Other disorders of plasma-protein metabolism, not elsewhere classified Plan: Relates that [facility] has sent patient home with a note last year indicating that she developed prolonged unresponsiveness during surgery following administration of succinylcholine and advised that she most likely has pseudocholinesterase deficiency (6) Vitamin D deficiency: Code(s): E55.9 - Vitamin D deficiency, unspecified Plan: Continue Vitamin D3 2000 units QD (7) Allergic rhinitis: Code(s): J30.9 - Allergic rhinitis, unspecified Qualifiers: Allergic rhinitis seasonality: unspecified Allergic rhinitis trigger: unspecified Qualified Code(s): J30.9 - Allergic rhinitis, unspecified Plan: Takes OTC Tania-D PRN (8) PCOS (polycystic ovarian syndrome): Code(s): E28.2 - Polycystic ovarian syndrome Plan: Follow up with OB-Photoengraving Machine Operator/Tender as scheduled (9) Insomnia: Code(s): G47.00 - Insomnia, unspecified Qualifiers: Insomnia type: unspecified Qualified Code(s): G47.00 - Insomnia, unspecified Plan: Sleep hygiene reinforced Per request, will increase her Trazodone to 100 mg Q HS PRN (10) Morbid obesity with BMI of 50.0-59.9, adult: Code(s): E66.01 - Morbid (severe) obesity due to excess calories; Z68.43 - Body mass index [BMI] 50.0-59.9, adult Plan: Reinforced diet/exercise as tolerated/lose weight Plan Follow up in 4 months Orders: Orders Comprehensive [place]. Panel Fast 4 Months E78.00 - Pure hypercholesterolemia, unspecified Hemoglobin A1c 4 Months E11.9 - Type 2 diabetes mellitus without complications Lipid Panel 4 Months E78.00 - Pure hypercholesterolemia, unspecified TSH reflex Free T4 4 Months E78.00 - Pure hypercholesterolemia, unspecified Vitamin D 25-OH Total 4 Months E55.9 - Vitamin D deficiency, unspecified Complete Blood Count Auto Diff 4 Months I10 - Essential (primary) hypertension UA CC w/rflx Micro + Cult 4 Months R30.0 - Dysuria Medications: New semaglutide (Ozempic) for 4 weeks 0.25 mg (0.4 mL) subcut QWEEK 3 mL 3RF Changed From metformin ER 500 mg PO QPM 90 tabs 0RF To metformin ER 500 mg PO QPM 90 days 90 tabs 1RF From trazodone 50 mg PO BEDTIME PRN 30 tabs 1RF sleep G47.00 - Insomnia, unspecified To trazodone 100 mg PO BEDTIME 30 days PRN 30 tabs 3RF sleep G47.00 - Insomnia, unspecified Coding Level of Care Code Est Pt Level 4 (91175) Diagnoses Impaired fasting glucose R73.01 Migraine G43.909 Intractability: not intractable Migraine type: unspecified Status migrainosus presence: without status migrainosus Obstructive sleep apnea G47.33 Chronic tonsillar hypertrophy J35.1 Pseudocholinesterase deficiency E88.09 Vitamin D deficiency E55.9 Allergic rhinitis J30.9 Allergic rhinitis seasonality: unspecified Allergic rhinitis trigger: unspecified PCOS (polycystic ovarian syndrome) E28.2 Insomnia G47.00 Insomnia type: unspecified Morbid obesity with BMI of 50.0-59.9, adult E66.01; Z68.43
== END 2022-11-04 16:29 | disposition home or self-care (01) ==
PROVIDERS: PCP Internal Medicine; Visit Provider Internal Medicine
DX: R73.01 Impaired fasting glucose (principal); G43.909 Migraine, unspecified, not intractable, without status migrainosus; E88.09 Other disorders of plasma-protein metabolism, not elsewhere classified; E55.9 Vitamin D deficiency, unspecified; G47.33 Obstructive sleep apnea (adult) (pediatric); J35.1 Hypertrophy of tonsils; J30.9 Allergic rhinitis, unspecified; E28.2 Polycystic ovarian syndrome; G47.00 Insomnia, unspecified; E66.01 Morbid (severe) obesity due to excess calories; Z68.43 Body mass index [BMI] 50.0-59.9, adult
CPT/HCPCS: 99214

== ENCOUNTER 2023-06-14 08:35 | Outpatient (AMB) | payer OTHER, SELFPAY ==
--- NOTE | 2023-06-14 08:39 | MHC.PC.OV ---
Vital Signs 06/14/23 08:41 Height 56 ft 5 in Weight 321 lb BMI 0.5 BP 112/64 Blood Pressure Location Lt brachial Position Sitting Pulse 64 Pulse Source Pulse Oximeter Pulse Oximetry (%) 95 Oxygen Delivery Method Room Air Intake Visit Reasons: Yearly appointment Intake Note: Patient is here today for a physical. Paper work that needs to be filled out. Service Delivery Management Consultant Required: No Service Crew Leader: Not Required per policy Accompanied by: Self / Same As Patient Allergies cortisone [CORTISONE] Allergy (Unknown, Verified 06/14/23 08:41) Anaphylaxis,hives,chest pain succinylcholine Adverse Reaction (Severe, Verified 06/14/23 08:41) Unresponsive Medication List - Last Reconciled 06/14/23 by Anjali Villaseñor MD fexofenadine-pseudoephedrine 180-240 mg ER (Tania-D 24 Hour) 1 tab PO QAM nystatin 1 appl topical BID 2 weeks trazodone 100 mg PO BEDTIME PRN 90 days Tobacco use date assessed: 06/14/23 Dental Screening Dental Screen Date: 06/14/23 Did you have a dental visit in the last 12 months?: Yes Did you have a dental problem in the last 6 months where you did not have access to dental care?: No Was dental information given to patient?: Patient has dentist HPI Yearly appointment HPI Details 33-year-old obese female with a history of obstructive sleep apnea GERD PCOS adjustment disorder migraine impaired glucose tolerance coming in for annual physical. This is the 1st time I am seeing the patient. Review of the notes ER visit last year January 2023 for nausea vomiting and diarrhea diagnosis of gastroenteritis.. leg sweling recently [facility] Medical History (Updated 06/14/23 @ 09:04 by Anjali Villaseñor MD) Congestion of upper airway PCOS (polycystic ovarian syndrome) Obstructive sleep apnea Adjustment disorder, unspecified Upper respiratory tract infection Paronychia of toenail of left foot Family history of rheumatoid arthritis Thoracic back pain Back stiffness Acute pain of both ears Otitis media, right Recurrent otitis media of right ear Morbid obesity with BMI of 50.0-59.9, adult Chronic tonsillar hypertrophy Chest congestion Bilateral acute otitis media Sore throat (viral) Well woman exam Pre-diabetes Depression screening negative Contact with and (suspected) exposure to other viral communicable diseases Acute pharyngitis Upper respiratory tract infection Tinea cruris Pseudocholinesterase deficiency Allergic rhinitis Impaired fasting glucose PCOS (polycystic ovarian syndrome) GERD (gastroesophageal reflux disease) Morbid obesity Surgical History S/P tonsillectomy (~12/11/21) History of incision and drainage Family History (Updated 06/14/23 @ 09:05 by Anjali Villaseñor MD) Father Bipolar 1 disorder COPD (chronic obstructive pulmonary disease) Psoriasis Eczema Depression Chronic mental illness Mother Hypothyroidism Rheumatoid arthritis Brother In good health Paternal Aunt Breast cancer Paternal Uncle Pancreatic cancer Social History (Updated 06/14/23 @ 09:05 by Anjali Villaseñor MD) Housing: House Alcohol intake: current Alcohol intake frequency: holidays/special occasions only Comment: once a month 2 drinks Patient Tobacco Use Status: Never used Tobacco e-Cigarette/Vaping Use: Never Used Second Hand Smoke Exposure: No service: No Current occupational status: employed Cognitive needs: No Hearing needs: No Vision needs: No Female Reproductive History Menstrual Age of Menarche: 11 Questionnaire PHQ-9 Over the last 2 weeks, how often have you been bothered by any of the following problems? 1. Little interest or pleasure in doing things: not at all 2. Feeling down, depressed, or hopeless: not at all 3. Trouble falling or staying asleep, or sleeping too much: not at all 4. Feeling tired or having little energy: not at all 5. Poor appetite or overeating: not at all 6. Feeling bad about yourself - or that you are a failure or have let yourself or your family down: not at all 7. Trouble concentrating on things, such as reading the newspaper or watching television: not at all 8. Moving or speaking so slowly that other people could have noticed. Or the opposite - being so fidgety or restless that you have been moving around a lot more than usual: not at all 9. Thoughts that you would be better off or of hurting yourself in some way: not at all Total score: 0 Depression Screening Interpretation: Negative Depression Screening Done: Yes Source: Developed by Drs. Joe Hammond, Iman Montenegro, Aristeo Wright and colleagues, with an educational rob from [employer]. Thrive Questionnaire Date Thrive assessed: 06/14/23 I am a: Patient What is your living situation today?: I have a steady place to live Within the past 12 months, did the food you bought not last and you didn't have the money to get more?: Never true Within the past 12 months, did you worry whether your food would run out before you got money to buy more?: Never true Do you have trouble paying for medicines?: No Do you have trouble getting transportation to medical appointments?: No Do you have trouble paying your heating and electricity bill?: No Do you have trouble taking care of your child, family member or friend?: No Do you have trouble with day-to-day activities such as bathing, preparing meals, shopping, managing finances, etc.?: No Are you currently unemployed and looking for a job?: No Are you interested in more education?: No Currently or been in a relationship where the following occur: no concerns reported THRIVE Score: 0 AUDIT C Alcohol Use Questionnaire (AUDIT-C) 1. How often do you have a drink containing alcohol?: Monthly or less 2. How many drinks containing alcohol do you have on a typical day when you are drinking?: 1 or 2 Total Score: 1 EDUARDO-7 AMB Questionnaire EDUARDO-7 Date EDUARDO - 7 assessed: 06/14/23 Feeling nervous, anxious, or on edge: 0 = Not at all Not being able to stop or control worryin = Not at all Worrying too much about different things: 0 = Not at all Trouble relaxin = Not at all Being so restless that it is hard to sit still: 0 = Not at all Becoming easily annoyed or irritable: 0 = Not at all Feeling afraid as if something awful might happen: 0 = Not at all Total EDUARDO-7 score (0-4 normal; 5-9 mild; 10-14 moderate; 15-21 severe): 0 Source: Developed by Drs. Joe Hammond, Iman Montenegro, Aristeo Wright and colleagues, with an educational rob from [employer]. Physical exam (Primary Care) Vital Signs: Last Vital Signs Pulse 64 06/14/23 08:41 BP 112/64 06/14/23 08:41 Pulse Ox 95 06/14/23 08:41 Oxygen Delivery Method Room Air 06/14/23 08:41 BMI result Body Mass Index 0.5 Tobacco/Smoking Status: Tobacco use Status Tobacco use date assessed 06/14/23 06/14/23 08:48 Patient Tobacco Use Status Never used Tobacco 06/14/23 09:05 e-Cigarette/Vaping Use Never Used 06/14/23 09:05 PHQ-9: PHQ-9 Score PHQ-9: Total score 0 06/14/23 08:55 Depression Screening Interpretation: Negative Thrive Assessment: Date of Thrive Assessment Date Thrive assessed 06/14/23 06/14/23 08:48 Currently or been in a relationship where the following occur: no concerns reported Results AMB Hemoglobin A1c AMB Hemoglobin A1c 5.5 % Last Edit by DARBY Ogden on 06/14/23 09:08 Assessment and Plan Assessment & Plan (1) Annual physical exam: Code(s): Z00.00 - Encounter for general adult medical examination without abnormal findings (2) Impaired fasting glucose: Code(s): R73.01 - Impaired fasting glucose Plan: Decrease the amount of carbohydrate intake, pasta, bread, rice and potatoes are all sugar and that is aside from all the sweet stuff, remember that fruits are good but they are Sweet also. (3) GERD (gastroesophageal reflux disease): Code(s): K21.9 - Gastro-esophageal reflux disease without esophagitis Plan: Avoid the foods that causes that usually spicy foods, tomato products, juices, coffee, soda and foods that your sensitive to. After eating do not lie down, allow 3-4 hours before in lie down. And keep the head of bed above 30 degrees to avoid the acid from going up. (4) Morbid obesity: Code(s): E66.01 - Morbid (severe) obesity due to excess calories Plan: Diet and exercise (5) Migraine: Code(s): G43.909 - Migraine, unspecified, not intractable, without status migrainosus Qualifiers: Intractability: not intractable Migraine type: unspecified Status migrainosus presence: without status migrainosus Qualified Code(s): G43.909 - Migraine, unspecified, not intractable, without status migrainosus Plan: Keep well hydrated, eat healthy and keep active (6) PCOS (polycystic ovarian syndrome): Code(s): E28.2 - Polycystic ovarian syndrome Plan: Patient Is placed back on metformin Orders: Orders Complete Blood Count Auto Diff Today I10 - Essential (primary) hypertension Comprehensive [place]. Panel Fast Today E78.00 - Pure hypercholesterolemia, unspecified Vitamin D 25-OH Total Today E55.9 - Vitamin D deficiency, unspecified AMB Hemoglobin A1c Today R73.01 - Impaired fasting glucose Lipid Panel Today E78.00 - Pure hypercholesterolemia, unspecified TSH reflex Free T4 Today E78.00 - Pure hypercholesterolemia, unspecified Hemoglobin A1c Today R73.01 - Impaired fasting glucose Vitamin B12 and Folate Today R73.01 - Impaired fasting glucose Medications: Refilled metformin ER 500 mg PO QPM 90 tabs 1RF 90 days Coding Level of Care Code Est Pt Prev Care 18-39y(02857) Diagnoses Annual physical exam Z00.00 Impaired fasting glucose R73.01 GERD (gastroesophageal reflux disease) K21.9 Morbid obesity E66.01 Migraine without status migrainosus, not intractable, unspecified migraine type G43.909 Intractability: not intractable Migraine type: unspecified Status migrainosus presence: without status migrainosus PCOS (polycystic ovarian syndrome) E28.2
[2023-06-14 08:41] VITALS: BP 112/64; PULSE 64; O2SAT 95
== END 2023-06-14 09:28 | disposition home or self-care (01) ==
PROVIDERS: PCP Internal Medicine; Visit Provider Internal Medicine
DX: Z00.00 Encounter for general adult medical examination without abnormal findings (principal); R73.01 Impaired fasting glucose; E66.01 Morbid (severe) obesity due to excess calories; K21.9 Gastro-esophageal reflux disease without esophagitis; G43.909 Migraine, unspecified, not intractable, without status migrainosus; E28.2 Polycystic ovarian syndrome
CPT/HCPCS: 83036; 99395

== ENCOUNTER 2023-10-09 09:57 | Outpatient (REF) | payer OTHER, SELFPAY ==
[2023-10-09 11:17] LABS: MANUAL DIFF FLAG NO
[2023-10-09 11:22] LABS: Basophils Percent Auto 0.5 % (0-2); Eosinophils Absolute Auto 0.2 X10*3/uL (0.0-0.4); Eosinophils Percent Auto 2.9 % (0-4); Hematocrit 41.9 % (37.0-47.0); Hemoglobin 13.9 g/dl (12.0-16.0); Imm Gran Abs Auto 0.06 X10*3/uL (0.00-0.03); Imm Gran Pct Auto 0.8 % (0.0-0.4); Lymphocytes Absolute Auto 3.4 X10*3/uL (1.2-4.9); Lymphocytes Percent Auto 44.1 % (20-40); Mean Corpuscular HGB Conc 33.2 g/dl (31.0-35.0); Mean Corpuscular Hemoglobin 28.3 pg (27.0-33.0); Mean Corpuscular Volume 85.3 fL (80.0-98.0); Mean Platelet Volume 9.5 fL (9.4-12.3); Monocytes Absolute Auto 0.5 X10*3/uL (0.1-1.2); Monocytes Percent Auto 6.8 % (2-11); Neutrophils Absolute Auto 3.4 x10*3/uL (2.0-8.3); Neutrophils Percent Auto 44.9 % (45-73); Platelet Count 285 X10*3/uL (160-400); Red Blood Count 4.91 X10*6/uL (4.20-5.50); Red Cell Distribution Width 13.1 % (11.0-16.0); White Blood Count 7.6 X10*3/uL (4.8-10.8)
[2023-10-09 11:34] LABS: Estimated Average Glucose 117 mg/dL; Hemoglobin A1c % 5.7 % (<6.0)
[2023-10-09 11:54] LABS: Alanine Aminotransferase 31 U/L (0-31); Albumin Level 3.8 g/dL (3.5-5.0); Alkaline Phosphatase 60 U/L (39-117); Anion Gap 12 (12-20); Aspartate Amino Transferase 22 U/L (5-31); Bilirubin Total 0.5 mg/dL (0.0-1.0); Blood Urea Nitrogen 9 mg/dL (9-16); Carbon Dioxide 26 mmol/L (22-29); Chloride 105 mmol/L (96-108); Cholesterol 169 mg/dL (<200); Estimated Glomerular Filt Rate > 60; Glucose Fasting 96 mg/dL (60-99); HDL Cholesterol 36 mg/dL (>40); LDL Cholesterol Calculated 108 mg/dL (<100); Potassium 4.1 mmol/L (3.3-5.1); Sodium 139 mmol/L (135-145); Total Protein 7.2 g/dL (6.5-8.0); Triglycerides 127 mg/dL (<150)
[2023-10-09 12:04] LABS: TSH reflex Free T4 2.13 uIU/mL (0.32-4.0); Vitamin D 25-OH Total 29.1 ng/mL (>30)
[2023-10-09 12:17] LABS: Vitamin B12 312 pg/mL (200-900)
== END 2023-10-09 09:58 | disposition home or self-care (01) ==
LOC: HO.HMGCLDS 09:57
PROVIDERS: PCP Internal Medicine; Visit Provider Internal Medicine
DX: I10 Essential (primary) hypertension (principal); E78.00 Pure hypercholesterolemia, unspecified; R73.01 Impaired fasting glucose; E55.9 Vitamin D deficiency, unspecified
CPT/HCPCS: 36415; 80053; 80061; 82306; 82607; 82746; 83036; 84443; 85025

== ENCOUNTER 2024-04-01 12:05 | Emergency (ER) | payer OTHER, SELFPAY ==
[2024-04-01 12:12] VITALS: BP 143/79; PULSE 99; RESP 18; TEMP 36.8; O2SAT 99; BMI 53.9
--- NOTE | 2024-04-01 12:12 | ED.NAVMDI ---
HPI - Nausea/Vomiting/Diarrhea General Chief complaint: Nausea/Vomiting/Diarrhea Stated complaint: vomitting Time Seen by Provider: 04/01/24 13:15 Source: patient Mode of arrival: ambulatory Limitations: no limitations History of Present Illness ED Provider: Aiden HPI Narrative: Patient is a 33-year-old female presenting to the emergency department with complaint nausea, vomiting and diarrhea since this morning. Denies abdominal pain, fevers chills, body aches. Complains of mild headache. Denies any known sick contacts. Denies any hematemesis, hematochezia. Denies any chest pain, palpitations, shortness of breath. Denies any urinary symptoms. MD elicited complaint: nausea, vomiting and diarrhea Onset (ago): hour(s) Description of vomiting: food contents Description of diarrhea: watery Associated nausea: Yes Associated abdominal pain: No Associated symptoms: denies other symptoms Related Data Home Medications ?Medication ?Instructions ?Recorded ?Confirmed fexofenadine-pseudoephedrine ER 1 tab PO QAM 06/14/23 06/14/23 180 mg-240 mg tablet,ext.release 24 hr (Tania-D 24 Hour) Previous Rx's ?Medication ?Instructions ?Recorded nystatin 100,000 unit/gram topical 1 appl topical BID 2 weeks #60 09/29/22 powder grams trazodone 100 mg tablet 100 mg PO BEDTIME PRN sleep 90 04/13/23 days #90 tabs metformin 500 mg tablet,extended 500 mg PO QPM 90 days #90 tabs 06/14/23 release 24 hr ondansetron 4 mg disintegrating 4 mg PO Q8H PRN nausea and 04/01/24 tablet vomiting #10 tabs Allergies Allergy/AdvReac Type Severity Reaction Status Date / Time cortisone [CORTISONE] Allergy Unknown Anaphylaxis,hives,chest Verified 04/01/24 12:13 pain succinylcholine AdvReac Severe Unresponsiv Verified 04/01/24 12:13 e Review of Systems Review of Systems: As per HPI Yes all other systems are reviewed and are negative Constitutional: Constitutional: Reports as per HPI Gastrointestinal: Gastrointestinal: Reports nausea PMFSH Past Medical History Medical History (Updated 04/01/24 @ 15:14 by Kristel Wolfe, [place]) Congestion of upper airway PCOS (polycystic ovarian syndrome) Obstructive sleep apnea Adjustment disorder, unspecified Upper respiratory tract infection Paronychia of toenail of left foot Family history of rheumatoid arthritis Thoracic back pain Back stiffness Acute pain of both ears Otitis media, right Recurrent otitis media of right ear Morbid obesity with BMI of 50.0-59.9, adult Chronic tonsillar hypertrophy Chest congestion Bilateral acute otitis media Sore throat (viral) Well woman exam Pre-diabetes Depression screening negative Contact with and (suspected) exposure to other viral communicable diseases Acute pharyngitis Upper respiratory tract infection Tinea cruris Pseudocholinesterase deficiency Allergic rhinitis Impaired fasting glucose PCOS (polycystic ovarian syndrome) GERD (gastroesophageal reflux disease) Morbid obesity Surgical History S/P tonsillectomy (~12/11/21) History of incision and drainage Family History Family History (Updated 06/14/23 @ 09:05 by Anjali Villaseñor MD) Father Bipolar 1 disorder COPD (chronic obstructive pulmonary disease) Psoriasis Eczema Depression Chronic mental illness Mother Hypothyroidism Rheumatoid arthritis Brother In good health Paternal Aunt Breast cancer Paternal Uncle Pancreatic cancer Social History Social History (Updated 06/14/23 @ 09:05 by Anjali Villaseñor MD) Housing: House Alcohol intake: current Alcohol intake frequency: holidays/special occasions only Comment: once a month 2 drinks Patient Tobacco Use Status: Never used Tobacco Smoked in Last 30 Days: No e-Cigarette/Vaping Use: Never Used Second Hand Smoke Exposure: No Use of substances other than those prescribed or required for medical reasons: No Advance Directives: No Advance Directives Information Provided: No Do you have a plan to hurt others: No Plan Patient : No service: No Current occupational status: employed Cognitive needs: No Hearing needs: No Vision needs: No Physical Exam Vital Signs: Vital Signs: Last Vital Signs Temp 98.2 F 04/01/24 12:50 Pulse 99 04/01/24 12:50 Resp 18 04/01/24 12:50 BP 143/79 H 04/01/24 12:50 Pulse Ox 99 04/01/24 12:50 O2 Del Method Room Air 04/01/24 12:50 BMI result Body Mass Index 53.9 Vital signs have been reviewed and appear to be correct. Blood pressure normal. Heart rate normal. Respiratory rate normal. Temperature normal. Oxygen saturation normal. Const: General: cooperative, healthy appearing and no acute distress Orientation/consciousness: oriented to person, oriented to place, oriented to time and patient oriented x3 Limitations: no limitations HEENT: Head: Yes normocephalic and Yes atraumatic Ears: external ears normal General nose exam: Normal external nose present Face and sinus: Yes face symmetric Mouth: oropharynx normal and moist mucous membranes Throat: Yes uvula midline Eyes: Pupils: Equal, round and reactive pupils present Neck: Neck: Yes normal visual inspection and Yes supple Resp: Effort & Inspection: normal respiratory effort and able to speak in complete sentences Auscultation: clear to auscultation bilaterally Cardio: Rate: regular rate Rhythm: regular rhythm Heart sounds: S1 normal heart sound present and S2 normal heart sound present GI: Palpation (GI): Soft to palpation and nontender Auscultation: normoactive bowel sounds : General: Yes no CVA tenderness Back/Spine/Pelvis: Back: no CVA tenderness Skin: General skin exam: elasticity normal and turgor normal Neuro: General: oriented to person, oriented to place, oriented to time, patient oriented x3, moves all extremities, no focal motor deficits and CN's II-XI intact bilaterally Cranial nerves: Yes Equal, round and reactive pupils present Cognition (Neuro): normal cognition Extrem: General: Yes full ROM, Yes no pedal edema and Yes no calf tenderness Psych: Mental Status: mental status grossly normal Affect: normal affect Thought process: Normal thought process present Course Course Course Narrative: This is a Rapid Medical Exam performed in triage by Lalitha Herzog PA-C. Full HPI, ROS and PE to be performed by primary ED provider. 33yo F w/pmhx GERD, PCOS, obesity presenting to the ED c/o nausea, vomiting & watery diarrhea since 5am w/assoc [facility]. denies recent Abx, travel, sick contacts. denies blood in diarrhea or vomit. admits ate [employer], but & child are w/o sx. Denies fever, abdominal pain PE: ambulating w/steady gait, nontoxic appearing Plan: labs, UA, stool studies Medications Administered Discontinued Medications Generic Name Dose Route Start Last Admin Trade Name Freq PRN Reason Stop Dose Admin Sodium Chloride 1,000 mls @ 999 mls/hr 04/01/24 13:30 04/01/24 14:40 Ns IV 04/01/24 14:30 Infused .Q1H1M JOSE ANTONIO Infusion Ondansetron HCl 4 mg 04/01/24 13:16 04/01/24 13:24 Ondansetron Hcl 4 Mg/2 Ml Vial IVPUSH 04/01/24 13:17 4 mg ONCE ONE Administration Medical Decision Making Medical Decision Making [facility] Narrative: Patient is a 33-year-old female presenting to the emergency department with complaint nausea, vomiting and diarrhea since this morning. On exam patient is awake, A+Ox3, VS WNL, afebrile, normal neurological exam without focal deficits, physical exam findings as above. Given reported symptoms and physical exam findings, initial differential includes but is not limited to viral illness, electrolyte abnormality, gastroenteritis, UTI. Labs notable for mild leukocytosis, no significant electrolyte abnormalities, no evidence of PATRICIA. Urinalysis is without evidence of infection. Patient reports significant improvement in symptoms after receiving IV fluids and Zofran, is able to tolerate p.o. fluids in the ED. Feel patient is stable for discharge home, will send prescription for Zofran. Discussed with patient that she should stick to clear liquid diet today then progress to a bland diet and back to regular diet as tolerated. Return precautions discussed at bedside. Follow-up with PCP as needed. Patient verbalized understanding of and agreement with plan. Differential Diagnosis Differential Diagnoses: The differential diagnosis associated with the presentation includes As per [facility]. Admission/Observation Consideration of admission/observation: Escalation of care including admission/observation considered Patient would have been admitted to the hospital had their work up had any findings where hospital admission was appropriate and their clinical presentation warranted hospital admission. Lab Data [facility] Lab Attestation statement: I reviewed the patient's lab results. as per [facility] 04/01/24 12:44 04/01/24 12:44 Labs: Lab Results 04/01/24 04/01/24 Range/Units 12:44 13:14 WBC 12.8 H (4.8-10.8) X10*3/uL RBC 5.11 (4.20-5.50) X10*6/uL Hgb 14.8 (12.0-16.0) g/dl Hct 42.9 (37.0-47.0) % MCV 84.0 (80.0-98.0) fL MCH 29.0 (27.0-33.0) pg MCHC 34.5 (31.0-35.0) g/dl RDW 13.4 (11.0-16.0) % Plt Count 265 (160-400) X10*3/uL MPV 9.1 L (9.4-12.3) fL Immature Gran % (Auto) 0.4 (0.0-0.4) % Neut % (Auto) 82.9 H (45-73) % Lymph % (Auto) 9.9 L (20-40) % [place] % (Auto) 5.2 (2-11) % Eos % (Auto) 1.4 (0-4) % Baso % (Auto) 0.2 (0-2) % Lymph # (Auto) 1.3 (1.2-4.9) X10*3/uL [place] # (Auto) 0.7 (0.1-1.2) X10*3/uL Eos # (Auto) 0.2 (0.0-0.4) X10*3/uL Baso # (Auto) 0.0 (0.0-0.2) X10*3/uL Abs Immat Gran (auto) 0.05 H (0.00-0.03) X10*3/uL Absolute Neuts (auto) 10.6 H (2.0-8.3) x10*3/uL Absolute Nucleated RBC 0.000 (0.0-0.012) X10*3/uL Nucleated RBC % (auto) 0.0 (0.0-0.2) /100WBC Sodium 140 (135-145) mmol/L Potassium 4.2 (3.3-5.1) mmol/L Chloride 109 H (96-108) mmol/L Carbon Dioxide 23 (22-29) mmol/L Anion Gap 12 (12-20) BUN 8 L (9-16) mg/dL Creatinine 0.64 (0.5-1.4) mg/dL Estim Creat Clear Calc 186.7 Estimated GFR > 60 Random Glucose 113 (60-115) mg/dL Calcium 8.7 (8.4-10.2) mg/dL Magnesium 1.7 (1.6-2.6) mg/dL Total Bilirubin 0.7 (0.0-1.0) mg/dL Direct Bilirubin 0.2 (0.0-0.5) mg/dL AST 26 (5-31) U/L ALT 29 (0-31) U/L Alkaline Phosphatase 72 (39-117) U/L Total Protein 7.6 (6.5-8.0) g/dL Albumin 4.1 (3.5-5.0) g/dL Lipase 23 (8-78) U/L Urine Color Yellow Urine Appearance Clear Urine pH 5.0 (5.0-9.0) Ur Specific [place] 1.020 (1.005-1.025) Urine Protein Negative (Neg-Trace) mg/dL Urine Glucose (UA) Negative (Negative) mg/dL Urine Ketones Negative (Negative) mg/dL Urine Blood Negative (Negative) Urine Nitrite Negative (Negative) Ur Leukocyte Esterase Negative (Negative) Urine Test NEGATIVE (NEGATIVE) External Record Review External record reviewed: Inpatient record, Office record and Outpatient record Prescription Management I considered prescription management with: Other Discharge Plan Discharge Clinical Impression: Gastroenteritis Patient Disposition: Home, Self-Care Instructions: Gastroenteritis (DC), Acute Nausea and Vomiting (ED), Acute Diarrhea (ED) Additional Instructions: You have been evaluated in the emergency department today for nausea, vomiting, and diarrhea. Your evaluation suggests that your symptoms are most likely due to a viral illness which will improve on it's own with rest and fluids. Remember to drink plenty of fluids at home. You are being prescribed ondansetron which you can use as per the prescription instructions for nausea. Please follow up with your primary care provider within two days. Return to the emergency department if you experience worsening or uncontrolled pain, inability to tolerate fluids by mouth, difficulty breathing, fevers 100.4? F or greater, recurrent vomiting, or any other concerning symptoms. Prescriptions: New ondansetron 4 mg tablet,disintegrating 4 mg PO Q8H PRN (Reason: nausea and vomiting) Qty: 10 0RF No Action nystatin 100,000 unit/gram powder 1 appl topical BID 14 Days Qty: 60 1RF trazodone 100 mg tablet 100 mg PO BEDTIME PRN (Reason: sleep) 90 Days Qty: 90 0RF fexofenadine-pseudoephedrine [Tania-D 24 Hour] 180-240 mg tablet extended release 24 hr 1 tab PO QAM metformin 500 mg tablet extended release 24 hr 500 mg PO QPM 90 Days Qty: 90 1RF Stand Alone Forms: Work/School Release Print Language: Wolof
[2024-04-01 12:47] LABS: MANUAL DIFF FLAG NO
[2024-04-01 12:50] VITALS: BP 143/79; PULSE 99; RESP 18; TEMP 36.8; O2SAT 99
[2024-04-01 12:51] LABS: Basophils Percent Auto 0.2 % (0-2); Eosinophils Absolute Auto 0.2 X10*3/uL (0.0-0.4); Eosinophils Percent Auto 1.4 % (0-4); Hematocrit 42.9 % (37.0-47.0); Hemoglobin 14.8 g/dl (12.0-16.0); Imm Gran Abs Auto 0.05 X10*3/uL (0.00-0.03); Imm Gran Pct Auto 0.4 % (0.0-0.4); Lymphocytes Absolute Auto 1.3 X10*3/uL (1.2-4.9); Lymphocytes Percent Auto 9.9 % (20-40); Mean Corpuscular HGB Conc 34.5 g/dl (31.0-35.0); Mean Platelet Volume 9.1 fL (9.4-12.3); Monocytes Absolute Auto 0.7 X10*3/uL (0.1-1.2); Monocytes Percent Auto 5.2 % (2-11); Neutrophils Absolute Auto 10.6 x10*3/uL (2.0-8.3); Neutrophils Percent Auto 82.9 % (45-73); Platelet Count 265 X10*3/uL (160-400); Red Blood Count 5.11 X10*6/uL (4.20-5.50); Red Cell Distribution Width 13.4 % (11.0-16.0); White Blood Count 12.8 X10*3/uL (4.8-10.8)
[2024-04-01 13:03] LABS: Alanine Aminotransferase 29 U/L (0-31); Albumin Level 4.1 g/dL (3.5-5.0); Alkaline Phosphatase 72 U/L (39-117); Anion Gap 12 (12-20); Aspartate Amino Transferase 26 U/L (5-31); Bilirubin Direct 0.2 mg/dL (0.0-0.5); Bilirubin Total 0.7 mg/dL (0.0-1.0); Blood Urea Nitrogen 8 mg/dL (9-16); Calcium 8.7 mg/dL (8.4-10.2); Carbon Dioxide 23 mmol/L (22-29); Chloride 109 mmol/L (96-108); Creatinine Clr Calc Pharmacy 186.7; Estimated Glomerular Filt Rate > 60; Glucose Random 113 mg/dL (60-115); Lipase 23 U/L (8-78); Magnesium 1.7 mg/dL (1.6-2.6); Potassium 4.2 mmol/L (3.3-5.1); Sodium 140 mmol/L (135-145); Total Protein 7.6 g/dL (6.5-8.0)
[2024-04-01 13:21] LABS: Appearance Urine Clear; Color Urine Yellow; Glucose Urine UA Negative (Negative); Leukocyte Esterase Urine Negative (Negative); Nitrite Urine Negative (Negative); Urine Blood Negative (Negative); Urine Ketones Negative (Negative); Urine Protein Negative (Neg-Trace)
[2024-04-01 13:24] LABS: UPreg QC Valid YES; Urine Pregnancy NEGATIVE (NEGATIVE)
[2024-04-01] MEDS: ondansetron HCL 4 MG/2 ML VIAL IVPUSH (13:24)
[2024-04-01] MEDS: 0.9 % Sodium Chloride 1,000 ML 999 ML IV (13:24)
[2024-04-01 15:26] VITALS: BP 133/81; PULSE 97; RESP 18; TEMP 36.8; O2SAT 98
[2024-04-01 15:37] VITALS: BP 133/81; PULSE 97; RESP 18; TEMP 36.8; O2SAT 98
== END 2024-04-01 15:37 | disposition home or self-care (01) ==
PROVIDERS: Physician Assistant; Emergency Provider Emergency Medicine Emergency Medical Services; PCP Internal Medicine
DX: K52.9 Noninfective gastroenteritis and colitis, unspecified (principal); R11.2 Nausea with vomiting, unspecified
CPT/HCPCS: 36415; 80048; 80076; 81003; 81025; 83690; 83735; 85025; 96361; 96374; 99284; J2405

== ENCOUNTER 2024-04-24 11:05 | Outpatient (AMB) | payer OTHER, SELFPAY ==
--- NOTE | 2024-04-24 11:06 | A.OFFPC_ITS ---
Vital Signs 04/24/24 11:08 Height 5 ft 5 in Weight 328 lb 4 oz BMI 54.6 BP 120/72 Blood Pressure Location Lt brachial Position Sitting Pulse 89 Pulse Source Pulse Oximeter Pulse Oximetry (%) 97 Oxygen Delivery Method Room Air Intake Visit Reasons: [facility] [place] 04/01 vomiting Intake Note: Patient is here to follow-up after a visit the emergency department at [facility] [place] on 04/01/24 Travelift Operator Required: No Supply Chain Coordinator: Not Required per policy Accompanied by: Self / Same As Patient Allergies cortisone [CORTISONE] Allergy (Unknown, Verified 04/24/24 11:08) Anaphylaxis,hives,chest pain succinylcholine Adverse Reaction (Severe, Verified 04/24/24 11:08) Unresponsive Medication List - Last Reconciled 04/24/24 by Zuri Owens PA-C fexofenadine-pseudoephedrine 180-240 mg ER (Tania-D 24 Hour) 1 tab PO QAM metformin ER 500 mg PO QPM 90 days nystatin 1 appl topical BID 2 weeks ondansetron 4 mg PO Q8H PRN trazodone 100 mg PO BEDTIME PRN 90 days Tobacco use date assessed: 04/24/24 Dental Screening Dental Screen Date: 04/24/24 Did you have a dental visit in the last 12 months?: Yes Did you have a dental problem in the last 6 months where you did not have access to dental care?: No Was dental information given to patient?: Patient has dentist HPI [facility] [place] 04/01 vomiting HPI Details 33-year-old obese female with past medic al history of obstructive sleep apnea, GERD, PCOS, adjustment disorder, migraine, impaired glucose tolerance last seen by Dr. Villaseñor 06/2023 coming in for hospital discharge follow up.?In review of the notes patient was seen in [facility] [place] ED 04/01/2024 for nausea and vomiting given IV fluids and Zofran was symptom improvement and discharged home with clear liquid diet follow up with PCP. Patient tells us today she is feeling generally well. She is no longer having nausea, vomiting or diarrhea. She was seen on Wednesday at the urgent care for a sinus infection and given Augmentin, inhaler, prednisone and has been feeling much better. She does not have any acute concerns today. She would like to discuss being started on the Wegovy as she was previously on this but due to insurance had to discontinue. PFSH Medical History Congestion of upper airway PCOS (polycystic ovarian syndrome) Obstructive sleep apnea Adjustment disorder, unspecified Upper respiratory tract infection Paronychia of toenail of left foot Family history of rheumatoid arthritis Thoracic back pain Back stiffness Acute pain of both ears Otitis media, right Recurrent otitis media of right ear Morbid obesity with BMI of 50.0-59.9, adult Chronic tonsillar hypertrophy Chest congestion Bilateral acute otitis media Sore throat (viral) Well woman exam Pre-diabetes Depression screening negative Contact with and (suspected) exposure to other viral communicable diseases Acute pharyngitis Upper respiratory tract infection Tinea cruris Pseudocholinesterase deficiency Allergic rhinitis Impaired fasting glucose PCOS (polycystic ovarian syndrome) GERD (gastroesophageal reflux disease) Morbid obesity Surgical History S/P tonsillectomy (~12/11/21) History of incision and drainage Family History Father Bipolar 1 disorder COPD (chronic obstructive pulmonary disease) Psoriasis Eczema Depression Chronic mental illness Mother Hypothyroidism Rheumatoid arthritis Brother In good health Paternal Aunt Breast cancer Paternal Uncle Pancreatic cancer Other Mental health disorder Social History Housing: House Alcohol intake: current Alcohol intake frequency: holidays/special occasions only Comment: once a month 2 drinks Patient Tobacco Use Status: Never used Tobacco e-Cigarette/Vaping Use: Never Used Second Hand Smoke Exposure: No service: No Current occupational status: employed Cognitive needs: No Hearing needs: No Vision needs: No Female Reproductive History Menstrual Age of Menarche: 11 Questionnaire PHQ-9 Over the last 2 weeks, how often have you been bothered by any of the following problems? 1. Little interest or pleasure in doing things: not at all 2. Feeling down, depressed, or hopeless: not at all 3. Trouble falling or staying asleep, or sleeping too much: not at all 4. Feeling tired or having little energy: not at all 5. Poor appetite or overeating: not at all 6. Feeling bad about yourself - or that you are a failure or have let yourself or your family down: not at all 7. Trouble concentrating on things, such as reading the newspaper or watching television: not at all 8. Moving or speaking so slowly that other people could have noticed. Or the opposite - being so fidgety or restless that you have been moving around a lot more than usual: not at all 9. Thoughts that you would be better off or of hurting yourself in some way: not at all Total score: 0 Depression Screening Interpretation: Negative Depression Screening Done: Yes Source: Developed by Drs. Joe Hammond, Iman Montenegro, Aristeo Wright and colleagues, with an educational rob from [employer]. Thrive Questionnaire Date Thrive assessed: 04/24/24 I am a: Patient What is your living situation today?: I have a steady place to live Within the past 12 months, did the food you bought not last and you didn't have the money to get more?: Never true Within the past 12 months, did you worry whether your food would run out before you got money to buy more?: Never true Do you have trouble paying for medicines?: No Do you have trouble getting transportation to medical appointments?: No Do you have trouble paying your heating and electricity bill?: No Do you have trouble taking care of your child, family member or friend?: No Do you have trouble with day-to-day activities such as bathing, preparing meals, shopping, managing finances, etc.?: No Are you currently unemployed and looking for a job?: No Are you interested in more education?: No Please select the resources that you would like help with: None Currently or been in a relationship where the following occur: No concerns reported THRIVE Score: 0 AUDIT C Alcohol Use Questionnaire (AUDIT-C) 1. How often do you have a drink containing alcohol?: Monthly or less 2. How many drinks containing alcohol do you have on a typical day when you are drinking?: 1 or 2 3. How often do you have six or more drinks on one occasion?: Never Total Score: 1 EDUARDO-7 AMB Questionnaire EDUARDO-7 Date EDUARDO - 7 assessed: 04/24/24 Feeling nervous, anxious, or on edge: 0 = Not at all Not being able to stop or control worryin = Not at all Worrying too much about different things: 0 = Not at all Trouble relaxin = Not at all Being so restless that it is hard to sit still: 0 = Not at all Becoming easily annoyed or irritable: 0 = Not at all Feeling afraid as if something awful might happen: 0 = Not at all Total EDUARDO-7 score (0-4 normal; 5-9 mild; 10-14 moderate; 15-21 severe): 0 Source: Developed by Drs. Joe Hammond, Iman Montenegro, Aristeo Wright and colleagues, with an educational rob from [employer]. Review of Systems Const Denies body aches, Denies chills, Denies fever(s), Denies headache(s) and Denies poor appetite Eyes Reports no additional complaints ENT Denies dizziness, Denies headache(s), Reports nasal congestion and Reports sinus pain Card Denies chest pain, Denies syncope, Denies edema, Denies irregular heart rhythm, Denies lightheadedness and Denies dyspnea Resp Denies cough and Denies dyspnea GI Denies abdominal pain, Denies constipation, Denies diarrhea, Denies nausea and Denies vomiting Reports no additional complaints Musc Reports no additional complaints and Denies abnormal gait Skin/Breast Reports system reviewed and no additional complaints, except as documented Neuro Denies abnormal gait, Denies dizziness, Denies syncope and Denies headache(s) Psych Reports no additional complaints Physical exam (Primary Care) Vital Signs: Last Vital Signs Pulse 89 04/24/24 11:08 BP 120/72 04/24/24 11:08 Pulse Ox 97 04/24/24 11:08 Oxygen Delivery Method Room Air 04/24/24 11:08 BMI result Body Mass Index 54.6 Tobacco/Smoking Status: Tobacco use Status Tobacco use date assessed 04/24/24 04/24/24 11:13 Patient Tobacco Use Status Never used Tobacco 04/24/24 11:13 e-Cigarette/Vaping Use Never Used 04/24/24 11:13 PHQ-9: PHQ-9 Score PHQ-9: Total score 0 04/24/24 11:14 Depression Screening Interpretation: Negative Thrive Assessment: Date of Thrive Assessment Date Thrive assessed 04/24/24 04/24/24 11:13 Currently or been in a relationship where the following occur: No concerns reported Const General: cooperative, healthy appearing, comfortable and no acute distress Orientation/consciousness: patient oriented x3 HENMT Head: Yes normocephalic Ears: hearing grossly normal bilaterally General nose exam: Normal external nose present Eyes General: appearance normal, both eyes and all related structures Conjunctivae: conjunctivae normal Neck Neck: Yes full ROM and Yes no lymphadenopathy Resp Effort & Inspection: normal respiratory effort Auscultation: clear to auscultation bilaterally, no crackles, no rales, no rhonchi and no wheezes Cardio Rate: regular rate Rhythm: regular rhythm Skin General skin exam: no rashes or lesions noted Neuro General: patient oriented x3 Gait exam (Neuro): Normal gait present Extrem General: Yes normal to inspection, Yes full ROM and No edema Psych Affect: normal affect Attitude: cooperative Insight: Good insight present (Psych) Judgement: Good judgement present (Psych) Coding Level of Care Code Est Pt Level 3 (45939) Diagnoses GERD (gastroesophageal reflux disease) K21.9 Morbid obesity E66.01 Impaired fasting glucose R73.01 Sinus congestion R09.81 Abdominal pain R10.9 Assessment & Plan Assessment & Plan (1) GERD (gastroesophageal reflux disease): Code(s): K21.9 - Gastro-esophageal reflux disease without esophagitis Category: Medical Plan: Avoid trigger foods such as citrus, tomato products, soda, caffeine, spicy foods and other foods that may be irritating to your stomach. Avoid laying flat 3-4 hours after eating and elevate the head of the bed 30 degrees to prevent acid from moving into the esophagus. (2) Morbid obesity: Code(s): E66.01 - Morbid (severe) obesity due to excess calories Category: Medical Plan: Healthy diet and regular exercise is encouraged. We will restart on Wegovy 0.25 mg and plan to have blood work done in 1 month before increasing dose or maintaining current dose. Prior office initiated advised patient to reach out if she has any issues with this medication. (3) Impaired fasting glucose: Code(s): R73.01 - Impaired fasting glucose Category: Medical Plan: Decrease the amount of carbohydrates such as pasta, bread, rice, and potatoes and limit the amount of sweets. Although fruits are generally healthy they should be eaten in moderation as they are still high in sugar. (4) Sinus congestion: Code(s): R09.81 - Nasal congestion Category: Medical Plan: Patient continues to have sinus congestion but is being treated for acute sinusitis with Augmentin, prednisone and albuterol inhaler and feels symptoms have been improving. Continue to monitor at this time (5) Abdominal pain: Code(s): R10.9 - Unspecified abdominal pain Category: Medical Plan: Abdominal pain has been improving and patient is no longer having nausea, vomiting or diarrhea. Continue to monitor symptoms. Plan This note was constructed using voice recognition software. While every effort has been made to ensure accuracy and baker, still areas may have been included sometimes these areas may affect the content or meeting of the given symptoms. Total time spent caring for the patient today was twenty minutes. This includes time spent before the visit reviewing the chart, time spent during the visit, and time spent after the visit and documentation. Orders: Orders Comprehensive Met. Panel Today Z00.00 - Encounter for general adult medical examination without abnormal findings Medications: New semaglutide (weight loss) (Naima) administer weeks 1 through 4 of therapy 0.25 mg (0.5 mL) subcut QWEEK 2 mL 0RF E28.2 - Polycystic ovarian syndrome, E66.01 - Morbid (severe) obesity due to excess calories
[2024-04-24 11:08] VITALS: BP 120/72; PULSE 89; O2SAT 97; BMI 54.6
== END 2024-04-24 11:59 | disposition home or self-care (01) ==
PROVIDERS: PCP Internal Medicine
DX: K21.9 Gastro-esophageal reflux disease without esophagitis (principal); E66.01 Morbid (severe) obesity due to excess calories; R73.01 Impaired fasting glucose; R09.81 Nasal congestion; R10.9 Unspecified abdominal pain; Z68.43 Body mass index [BMI] 50.0-59.9, adult

== ENCOUNTER 2024-06-12 07:52 | Outpatient (REF) | payer OTHER, SELFPAY ==
[2024-06-12 11:18] LABS: Alanine Aminotransferase 43 U/L (0-31); Albumin Level 3.9 g/dL (3.5-5.0); Alkaline Phosphatase 60 U/L (39-117); Anion Gap 11 (12-20); Aspartate Amino Transferase 31 U/L (5-31); Bilirubin Total 0.5 mg/dL (0.0-1.0); Blood Urea Nitrogen 11 mg/dL (9-16); Calcium 8.6 mg/dL (8.4-10.2); Carbon Dioxide 27 mmol/L (22-29); Chloride 108 mmol/L (96-108); Estimated Glomerular Filt Rate > 60; Glucose Random 101 mg/dL (60-115); Sodium 142 mmol/L (135-145); Total Protein 7.4 g/dL (6.5-8.0)
== END 2024-06-12 07:53 | disposition home or self-care (01) ==
LOC: HO.HMGCLDS 07:52
PROVIDERS: PCP Internal Medicine
DX: Z00.00 Encounter for general adult medical examination without abnormal findings (principal)
CPT/HCPCS: 36415; 80053

== ENCOUNTER 2024-06-16 08:51 | Outpatient (AMB) | payer OTHER, SELFPAY ==
[2024-06-16 08:57] VITALS: BP 128/88; PULSE 69; O2SAT 96; BMI 54.4
--- NOTE | 2024-06-16 08:57 | A.OFFPC_ITS ---
Vital Signs 06/16/24 08:57 Height 5 ft 5 in Weight 327 lb BMI 54.4 BP 128/88 Blood Pressure Location Lt brachial Position Sitting Pulse 69 Pulse Source Pulse Oximeter Pulse Oximetry (%) 96 Oxygen Delivery Method Room Air Intake Visit Reasons: annual exam Allergies cortisone [CORTISONE] Allergy (Unknown, Verified 06/16/24 08:57) Anaphylaxis,hives,chest pain succinylcholine Adverse Reaction (Severe, Verified 06/16/24 08:57) Unresponsive Medication List - Last Reconciled 06/16/24 by Anjali Villaseñor MD fexofenadine-pseudoephedrine 180-240 mg ER (Tania-D 24 Hour) 1 tab PO QAM semaglutide (weight loss) (Wegovy) 0.5 mg (0.5 mL) subcut QWEEK Tobacco use date assessed: 04/24/24 Dental Screening Dental Screen Date: 04/24/24 [facility] Medical History Congestion of upper airway PCOS (polycystic ovarian syndrome) Obstructive sleep apnea Adjustment disorder, unspecified Upper respiratory tract infection Paronychia of toenail of left foot Family history of rheumatoid arthritis Thoracic back pain Back stiffness Acute pain of both ears Otitis media, right Recurrent otitis media of right ear Morbid obesity with BMI of 50.0-59.9, adult Chronic tonsillar hypertrophy Chest congestion Bilateral acute otitis media Sore throat (viral) Well woman exam Pre-diabetes Depression screening negative Contact with and (suspected) exposure to other viral communicable diseases Acute pharyngitis Upper respiratory tract infection Tinea cruris Pseudocholinesterase deficiency Allergic rhinitis Impaired fasting glucose PCOS (polycystic ovarian syndrome) GERD (gastroesophageal reflux disease) Morbid obesity Surgical History S/P tonsillectomy (~12/11/21) History of incision and drainage Family History Father Bipolar 1 disorder COPD (chronic obstructive pulmonary disease) Psoriasis Eczema Depression Chronic mental illness Mother Hypothyroidism Rheumatoid arthritis Brother In good health Paternal Aunt Breast cancer Paternal Uncle Pancreatic cancer Other Mental health disorder Social History Housing: House Alcohol intake: current Alcohol intake frequency: holidays/special occasions only Comment: once a month 2 drinks Patient Tobacco Use Status: Never used Tobacco Tobacco use type: Cigarette e-Cigarette/Vaping Use: Never Used Second Hand Smoke Exposure: No service: No Current occupational status: employed Cognitive needs: No Hearing needs: No Vision needs: Yes Female Reproductive History Menstrual Age of Menarche: 11 Questionnaire PHQ-9 Over the last 2 weeks, how often have you been bothered by any of the following problems? 1. Little interest or pleasure in doing things: not at all 2. Feeling down, depressed, or hopeless: not at all 3. Trouble falling or staying asleep, or sleeping too much: not at all 4. Feeling tired or having little energy: not at all 5. Poor appetite or overeating: not at all 6. Feeling bad about yourself - or that you are a failure or have let yourself or your family down: not at all 7. Trouble concentrating on things, such as reading the newspaper or watching television: not at all 8. Moving or speaking so slowly that other people could have noticed. Or the opposite - being so fidgety or restless that you have been moving around a lot more than usual: not at all 9. Thoughts that you would be better off or of hurting yourself in some way: not at all Total score: 0 Depression Screening Interpretation: Negative Depression Screening Done: Yes 22490 - PHQ-9 Billing: Yes Source: Developed by Drs. Joe Hammond, Iman Montenegro, Aristeo Wright and colleagues, with an educational rob from [employer]. Thrive Questionnaire Date Thrive assessed: 06/14/24 I am a: Patient What is your living situation today?: I have a steady place to live Within the past 12 months, did the food you bought not last and you didn't have the money to get more?: Never true Within the past 12 months, did you worry whether your food would run out before you got money to buy more?: Never true Do you have trouble paying for medicines?: No Do you have trouble getting transportation to medical appointments?: No Do you have trouble paying your heating and electricity bill?: No Do you have trouble taking care of your child, family member or friend?: No Do you have trouble with day-to-day activities such as bathing, preparing meals, shopping, managing finances, etc.?: No Are you currently unemployed and looking for a job?: No Are you interested in more education?: No Please select the resources that you would like help with: None Currently or been in a relationship where the following occur: No concerns reported THRIVE Score: 0 AUDIT C Alcohol Use Questionnaire (AUDIT-C) 1. How often do you have a drink containing alcohol?: Monthly or less Total Score: 1 EDUARDO-7 AMB Questionnaire EDUARDO-7 Date EDUARDO - 7 assessed: 04/24/24 Feeling nervous, anxious, or on edge: 0 = Not at all Not being able to stop or control worryin = Not at all Worrying too much about different things: 0 = Not at all Trouble relaxin = Not at all Being so restless that it is hard to sit still: 0 = Not at all Becoming easily annoyed or irritable: 0 = Not at all Feeling afraid as if something awful might happen: 0 = Not at all Total EDUARDO-7 score (0-4 normal; 5-9 mild; 10-14 moderate; 15-21 severe): 0 Source: Developed by Drs. Joe Hammond, Iman Montenegro, Aristeo Wright and colleagues, with an educational rob from [employer]. Review of Systems Const Denies poor appetite and Denies weakness Eyes Denies no additional complaints ENT Reports Normal hearing present, Denies dizziness, Denies nasal congestion, Denies tinnitus and Denies sore throat Card Denies chest pain, Denies syncope, Denies rapid heart rate and Denies dyspnea Resp Denies cough and Denies dyspnea GI Denies change in stool character, Reports constipation, Denies diarrhea, Denies nausea and Denies vomiting Denies urinary frequency, Denies difficulty voiding and Denies dysuria Neuro Reports Normal hearing present, Denies confusion, Denies dizziness, Denies syncope and Denies weakness Psych Denies confusion Physical exam (Primary Care) Vital Signs: Last Vital Signs Pulse 69 06/16/24 08:57 BP 128/88 06/16/24 08:57 Pulse Ox 96 06/16/24 08:57 Oxygen Delivery Method Room Air 06/16/24 08:57 BMI result Body Mass Index 54.4 Tobacco/Smoking Status: Tobacco use Status Tobacco use date assessed 04/24/24 06/16/24 08:58 Patient Tobacco Use Status Never used Tobacco 06/16/24 08:58 Tobacco use type Cigarette 06/16/24 08:58 e-Cigarette/Vaping Use Never Used 06/16/24 08:58 PHQ-9: PHQ-9 Score PHQ-9: Total score 0 06/16/24 09:18 Depression Screening Interpretation: Negative Thrive Assessment: Date of Thrive Assessment Date Thrive assessed 06/14/24 06/16/24 08:58 Currently or been in a relationship where the following occur: No concerns reported Const General: No confusion Orientation/consciousness: No confusion HENMT Head: Yes normocephalic Ears: external ears normal and TM's normal bilaterally Face and sinus: Yes normal facial exam Mouth: moist mucous membranes Throat: Yes tonsils normal Eyes Conjunctivae: conjunctivae normal Pupils: Equal, round and reactive pupils present and Pupil accommodation reflex normal Direct Ophthalmoscopy: normal light reflex Neck Neck: No lymphadenopathy Thyroid: Thyroid normal Chest Chest palpation & inspection: normal inspection of the chest Resp Effort & Inspection: normal respiratory effort and no audible wheezes Auscultation: clear to auscultation bilaterally, no crackles, no wheezes and lung sounds not diminished Cardio Rate: regular rate Rhythm: regular rhythm Peripheral pulses: radial pulses present and dorsalis pedis present GI Palpation (GI): no masses Auscultation: normal bowel sounds and normoactive bowel sounds Rectal Exam - Female: deferred Skin General skin exam: no rashes or lesions noted Rashes: no rashes Neuro General: No confusion Cranial nerves: Yes Equal, round and reactive pupils present and Yes Normal hearing present Cognition (Neuro): normal cognition Gait exam (Neuro): Normal gait present Motor exam (neuro): 5/5 motor strength present throughout Deep tendon reflexes (DTR's): Right brachioradialis reflex intensity grade: 2+, Left brachioradialis reflex intensity grade: 2+, Right patellar reflex intensity grade: 2+ and Left patellar reflex intensity grade: 2+ Extrem General: No edema Results AMB Hemoglobin A1c AMB Hemoglobin A1c 5.3 % Last Edit by Lupe Castillo CMA on 06/16/24 09 :22 Coding Level of Care Code Est Pt Prev Care 18-39y(40357) Diagnoses Annual physical exam Z00.00 Impaired fasting glucose R73.01 PCOS (polycystic ovarian syndrome) E28.2 GERD (gastroesophageal reflux disease) K21.9 Morbid obesity E66.01 Additional Codes PHQ-9 - 25255 - PHQ-9 Billing: Yes ([id number]) Assessment & Plan Assessment & Plan (1) Annual physical exam: Code(s): Z00.00 - Encounter for general adult medical examination without abnormal findings Category: Medical Plan: Patient is advised to eat healthy, keep well hydrated, keep active and have adequate sleep. (2) Impaired fasting glucose: Code(s): R73.01 - Impaired fasting glucose Category: Medical Plan: Decrease the amount of carbohydrate intake, pasta, bread, rice and potatoes are all sugar and that is aside from all the sweet stuff, remember that fruits are good but they are Sweet also. (3) PCOS (polycystic ovarian syndrome): Code(s): E28.2 - Polycystic ovarian syndrome Category: Medical Plan: Continue to follow-up with gynecology (4) GERD (gastroesophageal reflux disease): Code(s): K21.9 - Gastro-esophageal reflux disease without esophagitis Category: Medical Plan: Avoid the foods that causes that usually spicy foods, tomato products, juices, coffee, soda and foods that your sensitive to. After eating do not lie down, allow 3-4 hours before in lie down. And keep the head of bed above 30 degrees to avoid the acid from going up. this has resolved (5) Morbid obesity: Code(s): E66.01 - Morbid (severe) obesity due to excess calories Category: Medical Plan: Continue with diet and exercise patient has been prescribed semaglutide but had a change in insurance and so will do the prescription again Plan History of Present Illness The patient is a 34-year-old female presenting for a physical examination and review of ongoing health conditions. She is morbidly obese with an elevated BMI and a history of GERD, experiences polycystic ovarian syndrome with some difficulty managing with metformin, and migraines. Documented past interventions include a history of elevated liver enzymes indicative of fatty liver and pharmacological management with semaglutide for weight management. Her pre- diabetic condition is managed by monitoring blood glucose and lifestyle adjustment, with hemoglobin A1c reduced from 6.3% to 5.3%. The patient also has a documented drug sensitivity to Succinylcholine and Cortisone, noted during a tonsillectomy. Health Maintenance - Recommended continuing diet and exercise for weight management. - Prescribed semaglutide to aid in weight management. - Monitoring blood glucose, with fasting glucose at 101 mg/dL. - Previous hemoglobin A1c recorded as high as 6.3%, improved to 5.3%. - Advised on lifestyle changes to manage fatty liver, encourage a plant-based diet. - Encouraged reduction of high-glycemic index carbohydrates and sugars. - Flu and other vaccines are current. - Reviewed risks and advised vigilance against seasonal viruses such as influenza, COVID-19, RSV, and norovirus. Social History - Consumes alcohol socially, approximately once a month, averaging two drinks. - Does not smoke cigarettes. - Denies use of recreational drugs. - Engages with socially interactive lifestyles but describes limited active exercise. - Expresses challenges in maintaining a regular follow-up schedule with specialists, such as gynecology. - Dietary habits pointed towards needing guidance on reducing fast and fried food intake. Review of Systems - Constitutional: Denies weight changes. - Respiratory: Denies difficulty breathing, shortness of breath, or chest pain. - Gastrointestinal: Reports prior GERD, but no current heartburn. Denies nausea or vomiting, recent stomach bug noted. - Neurological: Denies dizziness or passing out episodes. - Psychiatric: Denies mood disturbances or cognitive impairments. Physical Exam General: Cooperative, healthy appearing, comfortable, no acute distress and well developed Orientation: Patient oriented x3 Limitations: No limitations Head: Normal to inspection Ears: Hearing grossly normal bilaterally Nose: Normal external nose present Face and sinus: Normal facial exam Eyes: Appearance normal, both eyes and all related structures Neck: Normal visual inspection and Yes full ROM Respiratory: Normal respiratory effort and able to speak in complete sentences. Clear to auscultation bilaterally Cardiovascular: Regular rate and rhythm. Normal S1 and S2 GI: Normal to inspection. Soft to palpation and nontender Skin: No rashes or lesions noted Neuro: Patient oriented x3 Extremities: Normal to inspection Results - Labs: Fasting glucose at 101 mg/dL, Hemoglobin A1c improved to 5.3%. Mildly raised WBC count previously noted. - Imaging: Fatty liver observed on recent ultrasound. - Tests: Liver function tests elevated. Plan The patient?s management focuses on addressing morbid obesity with semaglutide and lifestyle modifications in diet and exercise to support weight loss. Following-up on indications of pre-diabetes relies on nutritional regulation, particularly reducing intake of high-glycemic foods, and consistent activity to stabilize blood sugar levels. Her liver health is of concern; hence promoting low-fat, plant-based diets to manage fatty liver is advisable. GERD management remains stable due to dietary vigilance, with additional gastroenterological evaluation if symptoms persist. Monitoring her polycystic ovarian syndrome requires considering alternatives to metformin given her past intolerance. Proactively managing her migraines through trigger identification and control remains relevant. Drug sensitivities are carefully documented for medical and surgical consideration in her record. Patient was informed and verbally consented to the use of an ambient scribe for clinic note documentation during this visit. Discussion Notes During the visit, I emphasized the importance of continued dietary and lifestyle changes to manage weight, especially given the patient?s obesity and fatty liver condition. I discussed the role of semaglutide in aiding weight loss and managing type 2 diabetes risk. We reviewed the patient?s blood glucose improvements and stressed the need for continued monitoring of these levels. The agenda for GERD remains symptom-driven, with potential pharmacotherapy discussed if needed. Concerns regarding the halted use of metformin were explored, especially in light of her polycystic ovarian syndrome. I have advised close observation of migraines and their management. Risks and benefits of various interventions were explained, emphasizing lifestyle intervention as a primary therapy. I confirmed that vigilance against potential health threats, such as seasonal viruses, remains crucial. We established a plan for follow-up in three months unless issues arise before then. Patient Instructions - Continue prescribed semaglutide for weight management. - Follow a low-fat, reduced sugar diet to aid in weight and liver management. - Engage in regular physical activity to support weight loss and glucose control. - Monitor blood sugar levels as discussed. - Be vigilant with GERD symptoms and manage with dietary adjustments. - Avoid metformin due to prior gastrointestinal side effects, and communicate any PCOS concerns with healthcare professionals. - Track migraine occurrences and avoid known triggers. - Watch out for symptoms of influenza, COVID-19, and RSV especially during active seasons. - Schedule a follow-up in three months or sooner if any new health concerns arise. Orders: Orders AMB Hemoglobin A1c Today Z13.9 - Encounter for screening, unspecified Medications: Refilled semaglutide (weight loss) (Wegovy) administer weeks 5 through 8 of therapy 0.5 mg (0.5 mL) subcut QWEEK 2 mL 0RF
== END 2024-06-16 09:34 | disposition home or self-care (01) ==
PROVIDERS: PCP Internal Medicine; Visit Provider Internal Medicine
DX: Z00.00 Encounter for general adult medical examination without abnormal findings (principal); R73.01 Impaired fasting glucose; E66.01 Morbid (severe) obesity due to excess calories; Z68.43 Body mass index [BMI] 50.0-59.9, adult; E28.2 Polycystic ovarian syndrome; K21.9 Gastro-esophageal reflux disease without esophagitis

== ENCOUNTER → 2024-06-16 08:51 | Outpatient (BNVA) | payer OTHER, SELFPAY | PROVIDERS: PCP Internal Medicine; Visit Provider Internal Medicine | DX: Z00.00 Encounter for general adult medical examination without abnormal findings (principal); R73.01 Impaired fasting glucose; E28.2 Polycystic ovarian syndrome; K21.9 Gastro-esophageal reflux disease without esophagitis; E66.01 Morbid (severe) obesity due to excess calories; Z68.43 Body mass index [BMI] 50.0-59.9, adult | CPT/HCPCS: 83036; 96127 ==

== ENCOUNTER → 2024-06-29 09:41 | Outpatient (BNVA) | payer OTHER, SELFPAY | PROVIDERS: PCP Internal Medicine; Visit Provider Physician Assistant Surgical ==

== ENCOUNTER 2024-07-10 08:06 | Outpatient (AMB) | payer OTHER, SELFPAY ==
--- NOTE | 2024-07-10 09:16 | MHC.OFFVISWM ---
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[facility] *SEE COMMENTS* Allergies cortisone [CORTISONE] Allergy (Unknown, Verified 07/10/24 09:16) Anaphylaxis,hives,chest pain succinylcholine Adverse Reaction (Severe, Verified 07/10/24 09:16) Unresponsive Medication List - Last Reconciled 07/10/24 by Alexey Puri MD fexofenadine-pseudoephedrine 180-240 mg ER (Tania-D 24 Hour) 1 tab PO QAM HPI 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 [facility] *SEE COMMENTS*: Details: Start time: 9.06am, End time: 9.51am ?I spent 40 minutes speaking with the patient on the phone plus an additional 5 minutes reviewing and updating records for a total of 45 minutes HPI Comments Details: Previous weight loss efforts: WW, exercise, Wegovy 0.25mg for 1mth (17lbs loss) Wakes up: 7am, Sleeps: 12am Breakfast: 8am (fruits, eggs with toast, oatmeal) Lunch: 12pm (salad, burger, chicken) Dinner: 6pm (salad or Muscle milk protein shake) Snacks: 10am (fruits), 8pm (1/2 Muscle milk protein shake) Exercise: Gym membership Beverages: Coffee: none, tea: none, soda: Regular Coke (1-2 cans/day), juice: none, ETOH: rarely PFSH Medical History (Updated 07/10/24 @ 09:19 by Alexey Puri MD) Back pain Congestion of upper airway PCOS (polycystic ovarian syndrome) Obstructive sleep apnea Adjustment disorder, unspecified Upper respiratory tract infection Paronychia of toenail of left foot Family history of rheumatoid arthritis Thoracic back pain Back stiffness Acute pain of both ears Otitis media, right Recurrent otitis media of right ear Morbid obesity with BMI of 50.0-59.9, adult Chronic tonsillar hypertrophy Chest congestion Bilateral acute otitis media Sore throat (viral) Well woman exam Pre-diabetes Depression screening negative Contact with and (suspected) exposure to other viral communicable diseases Acute pharyngitis Upper respiratory tract infection Tinea cruris Pseudocholinesterase deficiency Allergic rhinitis Impaired fasting glucose PCOS (polycystic ovarian syndrome) GERD (gastroesophageal reflux disease) Morbid obesity Surgical History S/P tonsillectomy (~12/11/21) History of incision and drainage Family History Father Bipolar 1 disorder COPD (chronic obstructive pulmonary disease) Psoriasis Eczema Depression Chronic mental illness Mother Hypothyroidism Rheumatoid arthritis Brother In good health Paternal Aunt Breast cancer Paternal Uncle Pancreatic cancer Other Mental health disorder Social History (Updated 06/29/24 @ 10:26 [address] Misty Payan [facility]) Housing: House Alcohol intake: current Alcohol intake frequency: holidays/special occasions only Patient Tobacco Use Status: Never used Tobacco Tobacco use type: Cigarette e-Cigarette/Vaping Use: Never Used Second Hand Smoke Exposure: No service: No Current occupational status: employed Cognitive needs: No Hearing needs: No Vision needs: Yes Female Reproductive History Menstrual Age of Menarche: 11 Telehealth Telehealth Telehealth Platform: Telephone Location of provider rendering services: practice address Location of patient: address on file Patient Identification confirmed using: Name, : Yes Telehealth method: voice only Patient verbally consented to treatment: Yes Patient verbally consented to billing insurance company: Yes Patient informed of any privacy concerns related to visit: Yes Minutes spent on Phone/Video with Pt.: 45 Assessment & Plan Assessment & Plan (1) Morbid obesity: Code(s): E66.01 - Morbid (severe) obesity due to excess calories Category: Medical Plan: 1. We discussed in detail the available therapeutic options: 1) our lifestyle intervention program that has an average weight loss of 10% in 3 months.? 2) Weight loss medications. 3) We also discussed about the lap sleeve gastrectomy. I emphasized the importance of close follow-up, adherence to instructions and good communication. The surgery does not replace the need to change your lifestlyle which is the cause of the obesity problem. The surgery provides the motivation to try again to change your lifestyle, it reduces the appetite and make the transition to a better lifestyle easier and doubles the amount of weight you would lose compared to doing the lifestyle change without the surgery. You will need to be on a liquid diet with protein shakes for 2 weeks before surgery to maximize weight loss and boost your nutritional status to recover better from surgery and also for the first two weeks after surgery to let the stomach heal before we introduce other foods. After the first 2 weeks we will introduce protein bars and soft foods like scrambled eggs, cottage cheese and yogurt and after the 6th week will introduce meat, fish and cooked vegetables in small amounts. Over time you should be able to eat everything in small amounts. Side effects like nausea, vomiting, heartburn or abdominal pain are not common in the practice unless you are not following in the practice. This operation requires lifetime commitment to following in our practice and communication with me. You will much less weight and experience side effects if you don?t communicate or not following in the practice. Complications are rare and in our practice is about 1/10 of the national average. The patient prefers to try the anti-obesity medications. 2. You will receive a link of our software winnie to generate an individualized nutritional and exercise plan specific for you. Please send me a screenshot of the meal and exercise plans you will generate Meal to include lean meat (beef, fish, pork, turkey, chicken), or maltese yogurt, or egg whites, or beans with a salad with olive oil and fruits (berries, pears, apples, kiwi). Avoid salt, breads, potatoes, rice, pasta, desserts. ?3. If you choose shakes, each shake would be drunk slowly, like coffee in a period of 2 hours. ?4. If you choose bars, cut each bar in 4 pieces and eat each piece in 30min ?to make each bar last 2 hours. ?5. I emphasized the importance of measuring accurately the food portion and measure it when serving the food in plate ?6. The meal portions include a specific number of forks of meat and salad. You always eat the meat portion but you can replace up to half of salad/vegetables portion with rice, potatoes or pasta, or a fruit ?if you like. The less you do it the better weight loss will be. ?7. One full-size fork is what it can be scooped on the fork without falling aside and not what can be bit with the fork. Use regular forks like those you find in a typical restaurant. ?8.? Please use your body composition scale and send me weight measurements as soon as possible and then once a week. 9. Goal is to lose at least 1.5-2lbs per week 10. Goal to lose at least 10% of your weight, which is about 33lbs. Weight goal: 294lbs 11. I will order a medication to help you with the weight loss which is called Zepbound. My office will try to authorize it. Please let me know when you receive it so I can give you a meal and exercise plan. Common side effects include nausea, vomiting, constipation, diarrhea, abdominal pain. Please let me know if you develop any of these symptoms.
[2024-07-10 09:43] VITALS: BMI 53.6
== END 2024-07-10 09:52 | disposition home or self-care (01) ==
LOC: HO.HBS 08:06
PROVIDERS: PCP Internal Medicine; Visit Provider Surgery
DX: E66.813 Obesity, class 3 (principal); Z68.43 Body mass index [BMI] 50.0-59.9, adult
CPT/HCPCS: 98010

== ENCOUNTER 2024-07-19 08:00 | Outpatient (REF) | payer OTHER, SELFPAY ==
[2024-07-19 10:37] LABS: MANUAL DIFF FLAG NO
[2024-07-19 10:58] LABS: Basophils Percent Auto 0.6 % (0-2); Eosinophils Absolute Auto 0.2 X10*3/uL (0.0-0.4); Eosinophils Percent Auto 2.9 % (0-4); Hematocrit 40.4 % (37.0-47.0); Hemoglobin 13.4 g/dl (12.0-16.0); Imm Gran Abs Auto 0.03 X10*3/uL (0.00-0.03); Imm Gran Pct Auto 0.4 % (0.0-0.4); Lymphocytes Absolute Auto 3.1 X10*3/uL (1.2-4.9); Lymphocytes Percent Auto 44.4 % (20-40); Mean Corpuscular HGB Conc 33.2 g/dl (31.0-35.0); Mean Corpuscular Hemoglobin 28.3 pg (27.0-33.0); Mean Corpuscular Volume 85.2 fL (80.0-98.0); Mean Platelet Volume 9.7 fL (9.4-12.3); Monocytes Absolute Auto 0.4 X10*3/uL (0.1-1.2); Monocytes Percent Auto 5.8 % (2-11); Neutrophils Absolute Auto 3.2 x10*3/uL (2.0-8.3); Neutrophils Percent Auto 45.9 % (45-73); Platelet Count 276 X10*3/uL (160-400); Red Blood Count 4.74 X10*6/uL (4.20-5.50); White Blood Count 6.9 X10*3/uL (4.8-10.8)
[2024-07-19 11:08] LABS: Estimated Average Glucose 111 mg/dL; Hemoglobin A1c % 5.5 % (<6.0); Total Hemoglobin (HGBA1C) 3523.9914 umol/L
[2024-07-19 11:39] LABS: Alanine Aminotransferase 24 U/L (0-31); Alkaline Phosphatase 63 U/L (39-117); Anion Gap 9 (12-20); Aspartate Amino Transferase 27 U/L (5-31); Bilirubin Total 0.6 mg/dL (0.0-1.0); Blood Urea Nitrogen 12 mg/dL (9-16); C Reactive Protein 1.47 mg/dL (< or = 0.50); Carbon Dioxide 27 mmol/L (22-29); Chloride 108 mmol/L (96-108); Cholesterol 141 mg/dL (<200); Estimated Glomerular Filt Rate > 60; Ferritin 44 ng/mL (10-122); Glucose Random 102 mg/dL (60-115); HDL Cholesterol 34 mg/dL (>40); Iron 80 mcg/dL (30-160); LDL Cholesterol Calculated 88 mg/dL (<100); Percent Iron Saturation 26 % (15-50); Potassium 3.9 mmol/L (3.3-5.1); Sodium 140 mmol/L (135-145); TSH reflex Free T4 1.56 uIU/mL (0.32-4.0); Total Iron Binding Capacity 313 mcg/dL (228-428); Total Protein 7.1 g/dL (6.5-8.0); Triglycerides 97 mg/dL (<150); Unsaturated Iron Binding 233 ug/dL; Vitamin D 25-OH Total 51.6 ng/mL (>30)
[2024-07-19 11:59] LABS: Folate 8.4 ng/mL (> or = 4.0); Vitamin B12 522 pg/mL (200-900)
[2024-07-19 12:11] LABS: Insulin 59 uU/mL (2-29)
[2024-07-22 11:02] LABS: Zinc 82 mcg/dL (60-130)
[2024-07-22 20:14] LABS: Vitamin A 30 mcg/dL (38-98)
[2024-07-31 01:13] LABS: Vitamin B1 10 nmol/L (8-30)
== END 2024-07-19 08:01 | disposition home or self-care (01) ==
LOC: HO.HMGCLDS 08:00
PROVIDERS: PCP Internal Medicine; Visit Provider Surgery
DX: E66.01 Morbid (severe) obesity due to excess calories (principal); Z13.1 Encounter for screening for diabetes mellitus
CPT/HCPCS: 36415; 80053; 80061; 82306; 82607; 82728; 82746; 83036; 83525; 83540; 84425; 84443; 84590; 84630; 85025; 86140

== ENCOUNTER 2024-07-20 09:04 | Outpatient (REF) | payer OTHER, SELFPAY ==
--- NOTE | ~2024-07-20 | XR_ITS ---
EXAMINATION: XR CHEST CLINICAL INFORMATION: E66.01 - Morbid (severe) obesity due to excess calories COMPARISON: 09/04/2020. TECHNIQUE: 2 views of the chest were obtained. FINDINGS: Borderline cardiac enlargement. Mediastinal and hilar contours appear normal. The lungs are clear bilaterally. There is no pneumothorax or pleural effusion. There is no focal osseous or soft tissue abnormality. XR/XR chest 2V IMPRESSION: No active pulmonary disease. Electronically signed by: Jonny Monroy MD 07/20/2024 09:29 AM EDT
== END 2024-07-20 09:05 | disposition home or self-care (01) ==
LOC: HO.HMGCX 09:04
PROVIDERS: PCP Internal Medicine; Visit Provider Surgery
DX: E66.01 Morbid (severe) obesity due to excess calories (principal)
CPT/HCPCS: 71046

== ENCOUNTER → 2024-07-20 09:08 | Outpatient (BNV) | payer OTHER, SELFPAY | PROVIDERS: PCP Internal Medicine; Visit Provider Radiology Diagnostic Radiology | DX: E66.01 Morbid (severe) obesity due to excess calories (principal) | CPT/HCPCS: 71046 ==

== ENCOUNTER 2024-08-03 13:39 | Outpatient (REF) | payer OTHER, SELFPAY ==
--- NOTE | 2024-08-03 13:46 | ECG_ITS ---
Test Reason : E66.01 Blood Pressure : */* mmHG Vent. Rate : 73 BPM Atrial Rate : 73 BPM P-R Int : 162 ms QRS Dur : 94 ms QT Int : 400 ms P-R-T Axes : 58 35 22 degrees QTcB Int : 440 ms Normal sinus rhythm Normal ECG When compared with ECG of 04-Sep-2020 09:39, No significant change was found Referred By: Alexey Puri Electronically Signed By: YUDITH CALLAWAY
== END 2024-08-03 13:40 | disposition home or self-care (01) ==
LOC: HO.LAB 13:39
PROVIDERS: PCP Internal Medicine; Visit Provider Surgery
DX: E66.01 Morbid (severe) obesity due to excess calories (principal)
CPT/HCPCS: 93005

== ENCOUNTER → 2024-08-03 13:46 | Outpatient (BNV) | payer OTHER, SELFPAY | PROVIDERS: PCP Internal Medicine; Visit Provider Internal Medicine | DX: E66.01 Morbid (severe) obesity due to excess calories (principal) | CPT/HCPCS: 93010 ==

== ENCOUNTER 2024-08-14 10:09 | Outpatient (AMB) | payer OTHER, SELFPAY ==
--- NOTE | 2024-08-14 10:05 | A.OFFWM_ITS ---
Intake Intake Visit Reasons: VIDEO BH Intake Allergies cortisone [CORTISONE] Allergy (Unknown, Verified 07/10/24 09:16) Anaphylaxis,hives,chest pain succinylcholine Adverse Reaction (Severe, Verified 07/10/24 09:16) Unresponsive [facility] Medical History (Updated 07/25/24 @ 19:52 by Alexey Puri MD) Back pain Congestion of upper airway PCOS (polycystic ovarian syndrome) Obstructive sleep apnea Adjustment disorder, unspecified Upper respiratory tract infection Paronychia of toenail of left foot Family history of rheumatoid arthritis Thoracic back pain Back stiffness Acute pain of both ears Otitis media, right Recurrent otitis media of right ear Morbid obesity with BMI of 50.0-59.9, adult Chronic tonsillar hypertrophy Chest congestion Bilateral acute otitis media Sore throat (viral) Well woman exam Pre-diabetes Depression screening negative Contact with and (suspected) exposure to other viral communicable diseases Acute pharyngitis Upper respiratory tract infection Tinea cruris Pseudocholinesterase deficiency Allergic rhinitis Impaired fasting glucose PCOS (polycystic ovarian syndrome) GERD (gastroesophageal reflux disease) Morbid obesity Surgical History S/P tonsillectomy (~12/11/21) History of incision and drainage Family History Father Bipolar 1 disorder COPD (chronic obstructive pulmonary disease) Psoriasis Eczema Depression Chronic mental illness Mother Hypothyroidism Rheumatoid arthritis Brother In good health Paternal Aunt Breast cancer Paternal Uncle Pancreatic cancer Other Mental health disorder Social History (Updated 06/29/24 @ 10:26 by Misty Payan [facility]) Housing: House Alcohol intake: current Alcohol intake frequency: holidays/special occasions only Patient Tobacco Use Status: Never used Tobacco Tobacco use type: Cigarette e-Cigarette/Vaping Use: Never Used Second Hand Smoke Exposure: No service: No Current occupational status: employed Cognitive needs: No Hearing needs: No Vision needs: Yes Female Reproductive History Menstrual Age of Menarche: 11 Behavioral Health Assessment Weight Management Therapy Therapy Notes Details The patient is a 34-year-old female presenting to complete her behavioral health assessment as part of the surgical weight loss program. She was initially referred to the program by her primary care provider. The patient previously engaged in the surgical weight loss program in 2020 but did not move forward with the procedure. She is uncertain about the specific reasons for not continuing at that time, suggesting she may not have been ready to commit to the process. Presenting Concerns Referral Source WMP- Provider Reason for referral Completion of behavioral health assessment as part of process for weight-loss surgery. Precipitating Event Obesity. Living Situation Current Living Situation Relative's/Guardian's Parish At risk of losing current housing? No Satisfied with current living situation? No Comments PT lives with her and their child at her parents home. Food/Weight/Diet Expectations of change Initial goal is to lose at least 10% of your weight, which is about 33lbs. Weight goal: 294lbs. PT started the program at 327 on 07/10/2024. Her most recent weight is 322 lbs on 08/08/2024 PT is not yet focusing on bigger weight goals, but she wants to improve her health, be more active and try to see if by losing weight her PCOS will improve also. PT is implementing the following: Current meal plan: doing a combination of shakes, bars, and 1 meal a day (dinner, /) Exercise plan: go to the [facility] [employer] 3x week. Scale: Yes. Communication w/ Dr. Grimes: yes, on Tuesdays. History/Relationship with food PT reports she has a love/hate relationship with food, not always choosing the right or healthier options. Denies any stress/emotional eating, but reported relying on take out or fast foods after a long day or when tired. Example of meals before starting the program: Breakfast: Lunch: Dinner: Snacks: Drinks/Liquids: History/Relationship with weight In the last 10 years, the patient's Lowest weight was and highest Binge Eating Do you frequently eat large amounts of food in short periods of time, not feeling physically hungry? No Do you feel out of control when you eat a large amount of food in a short period of time? No Do you eat large amounts of food rapidly and typically alone? No Night Eating Do you wake up at least once during the night to eat? No If you wake up in the night, do you find that it is necessary to eat something in order to fall back asleep? No Do you have little or no appetite in the morning and feel very hungry in the evening, often overeating between dinner and when you go to bed? No Social History Family history and relationship PT got 2 years ago. They are in the process of adopting their 2 year old foster daughter. Father in February. Her mother is alive and remarried her stepdad. PT currently lives with them. She has 1 brother from her mom and dad, and 2 stepsiblings who are from her step-dad. PT reports good family relationships. 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 They started fostering her and are in the process of finalizing the adoption. Developmental history and status None reported. Currently WNL. Social support , family in general (parents, siblings) and some friend. Community support PCP. Yazidism/Spirituality Christianity. Cultural/Ethnic information . Legal Involvement and History Current or historical involvement with the legal system? None reported. Education Highest grade completed HS. some college. Preferred learning style Visual Currently enrolled in educational program? No Interested in further educational program? No Educational Interests/Skills Health care. 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 ) Meaningful activities Family activities, outside activities. Reading. Financial Situation Describe current financial situation Comfortable Financial assistance? Other (WIC + fostering payments. ) Service Service? No Mental Health and Addiction Treatment Current/Past substance abuse? No Comments Alcohol: socially. once every couple months. 1-2 drinks. Cigarettes/Tobacco: None Cannabis/Edibles: None Current/Past addictive behavior concerns? No Psychiatric history PT reports she went to therapy around 5 years ago due to symptoms of anxiety and depression during that time she was working and then taking care of her ill dad until he . Around that time, her PCP prescribed her trazodone, and she hasn't taken it in about a year. Pt denies any history of MH inpatient and/or MH crisis. Also denies any history of safety concerns around self-harm, other harm. Medical and Physical Health Summary Additional Medical History not covered in history None reported. Sexual History concerns None reported. Although she believes she has infertility issues due to the PCOS. Physical exam in the last year? Yes (June/2024.) Pain Screening Current pain? No Pain in the last few months? No Medications Is the patient compliant with medications? Yes Does the patient have Riley Guardian in place? Not applicable Does the patient use complimentary health approaches? No Trauma/Abuse History History of trauma? No Questionnaires PHQ-9 Over the last 2 weeks, how often have you been bothered by any of the following problems? 1. Little interest or pleasure in doing things: not at all 2. Feeling down, depressed, or hopeless: not at all 3. Trouble falling or staying asleep, or sleeping too much: not at all 4. Feeling tired or having little energy: not at all 5. Poor appetite or overeating: several days 6. Feeling bad about yourself - or that you are a failure or have let yourself or your family down: not at all 7. Trouble concentrating on things, such as reading the newspaper or watching television: not at all 8. Moving or speaking so slowly that other people could have noticed. Or the opposite - being so fidgety or restless that you have been moving around a lot more than usual: not at all 9. Thoughts that you would be better off or of hurting yourself in some way: not at all Total score: 1 Depression Screening Interpretation: Negative (From New Pt pack completed on 06/29/24, scanned 07/12/2024.) Depression Screening Done: Yes Source: Developed by Drs. Joe Hammond, Iman Montenegro, Aristeo Wright and colleagues, with an educational rob from [employer]. Binge Eating Scale Group 1 A. I don't feel self-conscious about my wt. or body size when I'm with others. B. I feel concerned about how I look to others, but it normally does not make me fell disappointed with myself C. I do get self-conscious about my appearance and wt. which makes me feel disappointed in myself. D. I feel very self-conscious about my wt. and frequently I feel intense shame and disgust for myself. I try to avoid social contacts because of my self- consciousness. Response Group 1: C Group 2 A. I don't have any difficulty eating slowly in the proper manner. B. Although I seem to gobble down foods, I don't end up feeling stuffed because of eating to much. C. At times, I tend to eat quickly and then, I feel uncomfortably full afterwards. D. I have the habit of bolting down my food, without really chewing it. When this happens I usually feel uncomfortably stuffed because I've eaten to much. Response Group 2: A Group 3 A. I feel capable to control my eating urges when I want to. B. I feel like I have failed to control my eating more than the average person. C. I feel utterly helpless when it comes to feeling in control of my eating urges. D. Because I feel so helpless about controlling my eating I have become very desperate about trying to get control. Response Group 3: B Group 4 A. I don't have the habit of eating when I'm bored. B. I sometimes eat when I'm bored, but often I'm able to get busy and get my mind off food. C. I have a regular habit of eating when I'm bored, but occasionally, I can use some other activity to get my mind off eating. D. I have a strong habit of eating when I'm bored. Nothing seems to help me breath the habit. Response Group 4: B Group 5 A. I'm usually physically hungry when I eat something. B. Occasionally, I eat something on impulse even though I really am not hungry. C. I have the regular habit of eating foods, that I might not really enjoy, to satisfy a hungry feeling even though physically, I don't need the food. D. Although I'm not physically hungry, I get a hungry feeling in my mouth that only seems to be satisfied when I eat a food, like sandwich, that fills my mouth. Sometimes, when I eat the food to satisfy my mouth hunger, I then spit the food out so I won't gain weight. Response Group 5: A Group 6 A. I don't feel any guilt or self-hate after I overeat. B. After I overeat, occasionally I feel guilt or self-hate. C. Almost all the time I experience strong guilt or self-hate after I overeat. Response Group 6: B Group 7 A. I don't lose total control of my eating when dieting even after periods when I overeat. B. Sometimes when I eat a forbidden food on a diet, I feel like I blew it and eat even more. C. Frequently, I have the habit of saying to myself, I've blown it now, why not go all the way, when I overeat on a diet. When that happens I eat more. D. I have a regular habit of starting a strict diets for myself but I break the diets by going on an eating binge. My life seems to be either a feast or famine. Response Group 7: B Group 8 A. I rarely eat so much food that I feel uncomfortably stuffed afterwards. B. Usually about once a month, I each such a quantity of food, I end up feeling very stuffed. C. I have regular periods during the month when I eat large amounts of food, either at mealtime or at snacks. D. I eat so much food that I regularly feel quite uncomfortable after eating and sometimes a bit nauseous. Response Group 8: A Group 9 A. My level of calorie intake does not go up very high or go down very low on a regular basis. B. Sometimes after I overeat, I will try to reduce my caloric intake to almost nothing to compensate for the excess calories I've eaten. C. I have a regular habit of overeating during the night. It seems that my routine is not to be hungry in the morning but overeat in the evening. D. In my adult years, I have had week-long periods where I practically starve myself. This follows periods when I overeat. It seems I live a life of either feast or famine. Response Group 9: A Group 10 A. I usually am able to stop eating when I want to. I know when enough is enough. B. Every so often, I experience a compulsion to eat which I can't seem to control. C. Frequently, I experience strong urges to eat which I seem unable to control, but at other times I can control my eating urges. D. I feel incapable of controlling urges to eat. I have a fear of not being able to stop eating voluntarily. Response Group 10: A Group 11 A. I don't have any problem stopping eating when I feel full. B. I usually can stop eating when I feel full but occasionally overeat leaving me feeling uncomfortably stuffed. C. I have a problem stopping eating once I start and usually I feel uncomfortably stuffed after I eat a meal. D. Because I have a problem not being able to stop eating when I want, I sometimes have to induce vomiting to relieve my stuffed feeling. Response Group 11: A Group 12 A. I seem to eat just as much when I'm with others, Family social gatherings as when I'm by myself. B. Sometimes, when I'm with other persons, I don't eat as much as I want to eat because I'm self-conscious about my eating. C. Frequently, I eat only a small amount of food when others are present, because I'm very embarrassed about my eating. D. I feel so ashamed about overeating that I pick times to overeat when I know no one will see me. I feel like a closet eater. Response Group 12: A Group 13 A. I eat three meals a day with only an occasional between meal snack. B. I eat 3 meals a day, but I also normally snack between meals. C. When I am snacking heavily, I get in the habit of skipping regular meals. D. There are regular periods when I seem to be continually eating, with no planned meals. Response Group 13: A Group 14 A. I don't think much about trying to control unwanted eating urges. B. At least some of the time, I feel my thoughts are pre-occupied with trying to control my eating urges. C. I feel that frequently I spend much time thinking about how much I ate or about trying not to eat anymore. D. It seems to me that most of my waking hours are pre-occupied by thoughts about eating or not eating. I feel like I'm constantly struggling not to eat. Response Group 14: A Group 15 A. I don't think about food a great deal. B. I have strong craving for food but they last only for brief periods of time. C. I have days when I can't seem to think about anything else but food. D. Most of my days seem to be pre-occupied with thoughts about food. I feel like I live to eat. Response Group 15: B Group 16 A. I usually know whether or not I'm physically hungry. I take the right portion of food to satisfy me. B. Occasionally, I feel uncertain about knowing whether or not I'm physically hungry. A these times it's hard to know how much food I should take to satisfy me. C. Even though I might know how many calories I should eat, I don't have any idea what is a normal amount of food for me. Response Group 16: A Binge Eating Score: 7 Score less than 17 Minimal Risk Score between 18-26 Moderate Risk Score between 27-46 High Risk Assessment & Plan Assessment & Plan (1) Adjustment disorder: Code(s): F43.20 - Adjustment disorder, unspecified (2) Pre-bariatric surgery psychological evaluation: Code(s): Z71.89 - Other specified counseling Plan The patient was not cleared today as the assessment remains incomplete. PT will follow up in two weeks to complete the evaluation. At the next visit, the PHQ-9 will be re-administered to reassess depressive symptoms. Next Appointment: at 9am - Telehealth (video) Telehealth Telehealth Telehealth Platform: [employer] Location of provider rendering services: other Location of patient: address on file Patient Identification confirmed using: Name, : Yes Telehealth method: video Patient verbally consented to treatment: Yes Patient verbally consented to billing insurance company: Yes Patient informed of any privacy concerns related to visit: Yes Minutes spent on Phone/Video with Pt.: 50 Coding Level of Care Code New Pt Tele Psy Diag Eval ([id number]) Patient Type New Diagnoses Adjustment disorder F43.20 Pre-bariatric surgery psychological evaluation Z71.89 Time Spent (min) 50
== END 2024-08-14 10:55 | disposition home or self-care (01) ==
LOC: HO.HBST 10:09
PROVIDERS: PCP Internal Medicine; Visit Provider Counselor Mental Health
DX: F43.20 Adjustment disorder, unspecified (principal); Z71.89 Other specified counseling
CPT/HCPCS: 90791

== ENCOUNTER → 2024-08-14 10:09 | Outpatient (BNVA) | payer OTHER, SELFPAY | PROVIDERS: PCP Internal Medicine; Visit Provider Counselor Mental Health ==

== ENCOUNTER 2024-08-18 10:45 | Outpatient (REF) | payer OTHER, SELFPAY ==
--- NOTE | ~2024-08-18 | US_ITS ---
EXAMINATION: US ABDOMEN COMPLETE WITH LIVER ELASTOGRAPHY HISTORY: E66.01 - Morbid (severe) obesity due to excess calories TECHNIQUE: Real-time grayscale ultrasound imaging of the abdomen was performed and images were reviewed. COMPARISON: Comparison is made with the prior examination dated 09/29/2020. FINDINGS: Liver: The right lobe of the liver measures 19.9 cm in size. The left lobe of the liver measures 12.7 cm in size. The liver demonstrates increased echotexture, consistent with steatosis. No focal mass or intrahepatic biliary ductal dilatation is identified. There is normal hepatopedal flow in the portal vein. Ultrasound elastography of the liver was performed with 10 separate measurements of the liver parenchyma with the patient in the supine position. Measurements were obtained approximately 2 cm below Katelin's capsule and perpendicular to the capsule. Images are of satisfactory quality. The median shear wave velocity is 0.99 m/s (previously 1.3 m/s). The interquartile range/median (IQR/median) is 0.16. Gallbladder and biliary tree: The gallbladder is unremarkable, without evidence of calculi, wall thickening, or pericholecystic fluid. There is no sonographic Richardson sign. The common bile duct is normal in caliber measuring 4 mm. Kidneys: The right kidney measures 11.9 cm in length and is unremarkable. The left kidney measures 12.2 cm in length and demonstrates a 3 mm nonobstructing calculus at the lower pole. The left kidney is otherwise unremarkable. Pancreas: The pancreatic head, neck, and body are unremarkable. The pancreatic tail is obscured by bowel gas. Spleen: The spleen is enlarged, measuring 14.4 cm in length. Abdominal aorta and inferior vena cava: The visualized portions of the abdominal aorta and inferior vena cava are normal in caliber. There is no free fluid in the abdomen. US/US abdomen comp w elastography IMPRESSION: 1. Hepatosplenomegaly and hepatic steatosis. 2. 3 mm nonobstructing left lower pole renal calculus. The median shear wave velocity in the liver is 0.99 m/s, corresponding to a median liver stiffness of 3.01 kPa. The IQR/median value is 0.16. This is indicative of a poor quality data set, and the estimated liver stiffness may be unreliable. Findings are indicative of a normal elastography value with a low likelihood of severe fibrosis or cirrhosis. REFERENCE: Society of Radiologists in Ultrasound Liver Stiffness Thresholds (2020): LIVER STIFFNESS THRESHOLDS: *Shear wave velocity less than 1.3 m/s (Liver Stiffness equal or less than 5 kPa): High probability of being normal. *Shear wave velocity less than 1.7 m/s (Liver Stiffness less than 9 kPa): In the absence of other known clinical signs, rules out compensated advanced chronic liver disease. *Shear wave velocity between 1.7-2.1 m/s (Liver Stiffness 9-13 kPa): Suggestive of compensated advanced chronic liver disease but need further test for confirmation. *Shear wave velocity between 2.1-2.4 m/s (Liver Stiffness 13-17 kPa): Rules in compensated advanced chronic liver disease. *Shear wave velocity greater than 2.4 m/s (Liver Stiffness over 17 kPa): Suggestive of clinically significant portal hypertension. QUALITY OF DATA SET: *IQR/Median value equal or less than 0.15 implies a quality data set. *IQR/Median value over 0.15 implies a poor quality data set. SIGNIFICANT CHANGE FROM PRIOR EXAM: Significant change if liver stiffness measurement is 10% or greater from prior exam. OTHER CONSIDERATIONS: The stage of liver fibrosis may be overestimated in the setting of acute hepatitis, liver inflammation, elevated liver function tests, hepatic vascular congestion, obstructive cholestasis, non-fasting state, and infiltrative diseases such as amyloidosis and lymphoma. In some patients with NAFLD, the liver stiffness thresholds for compensated advanced chronic liver disease may be lower. In causes other than viral hepatitis and NAFLD, liver stiffness thresholds are not well established. Electronically signed by: Joe Hutson MD 08/18/2024 11:43 AM EDT
== END 2024-08-18 10:46 | disposition home or self-care (01) ==
LOC: HO.US 10:45
PROVIDERS: PCP Internal Medicine; Visit Provider Surgery
DX: E66.01 Morbid (severe) obesity due to excess calories (principal)
CPT/HCPCS: 76700; 76981

== ENCOUNTER → 2024-08-18 10:47 | Outpatient (BNV) | payer OTHER, SELFPAY | PROVIDERS: PCP Internal Medicine; Visit Provider Radiology Diagnostic Radiology | DX: R16.0 Hepatomegaly, not elsewhere classified (principal); K76.0 Fatty (change of) liver, not elsewhere classified; N20.0 Calculus of kidney | CPT/HCPCS: 76700; 76981 ==

== ENCOUNTER 2024-08-28 09:12 | Outpatient (AMB) | payer OTHER, SELFPAY ==
--- NOTE | 2024-08-28 09:05 | MHC.WMTHER ---
Intake Intake Visit Reasons: VIDEO Intake Part 2 Allergies cortisone [CORTISONE] Allergy (Unknown, Verified 07/10/24 09:16) Anaphylaxis,hives,chest pain succinylcholine Adverse Reaction (Severe, Verified 07/10/24 09:16) Unresponsive [facility] Medical History (Updated 08/25/24 @ 15:00 by Arianna Jean NP) Back pain Pseudocholinesterase deficiency Obstructive sleep apnea Allergic rhinitis Morbid obesity with BMI of 50.0-59.9, adult Chronic tonsillar hypertrophy Impaired fasting glucose Pre-diabetes Adjustment disorder, unspecified PCOS (polycystic ovarian syndrome) GERD (gastroesophageal reflux disease) Morbid obesity Surgical History S/P tonsillectomy (~12/11/21) History of incision and drainage Family History Father Bipolar 1 disorder COPD (chronic obstructive pulmonary disease) Psoriasis Eczema Depression Chronic mental illness Mother Hypothyroidism Rheumatoid arthritis Brother In good health Paternal Aunt Breast cancer Paternal Uncle Pancreatic cancer Other Mental health disorder Social History (Updated 06/29/24 @ 10:26 by Misty Payan CMA) Housing: House Alcohol intake: current Alcohol intake frequency: holidays/special occasions only Patient Tobacco Use Status: Never used Tobacco Tobacco use type: Cigarette e-Cigarette/Vaping Use: Never Used Second Hand Smoke Exposure: No service: No Current occupational status: employed Cognitive needs: No Hearing needs: No Vision needs: Yes Female Reproductive History Menstrual Age of Menarche: 11 Behavioral Health Assessment Weight Management Therapy Therapy Notes Details The patient is a 34-year-old female presenting for a follow-up visit to complete her behavioral health assessment as part of the surgical weight loss program. She was initially referred by her primary care provider. The patient reports struggling with weight since adolescence and was diagnosed with polycystic ovary syndrome (PCOS) approximately 12 years ago, which has contributed to weight fluctuations. Her weight has ranged from 230?250 lbs (pre-COVID) to a high of 330 lbs. She has tried various weight loss strategies, including Weight Watchers, low-carb diets, gym attendance, and Wegovy (0.25 mg in April 2024, resulting in a 17 lb loss). The patient attended therapy about five years ago for anxiety and depression, which coincided with a period of balancing work and caregiving for her ill father, who has since passed. During this time, her primary care provider prescribed trazodone, but she has not taken the medication for the past year. The patient denies any history of psychiatric hospitalization, mental health crises, or self-harm and reports no history of suicidal ideation or thoughts of harming others. The patient reports no history of substance use. There is no evidence of stress or emotional eating, and scores from the BES suggest a low risk for binge eating behaviors. Additionally, PHQ-9 scores indicate no active symptoms or concerns regarding depression and hre mental status exam is within normal limits, suggesting that the patient?s functioning is not impaired. At this time, the patient is cleared from a behavioral health standpoint. Presenting Concerns Referral Source [facility]MP- Provider Reason for referral Completion of behavioral health assessment as part of process for weight-loss surgery. Precipitating Event Obesity. Living Situation Current Living Situation Relative's/Guardian's Parish At risk of losing current housing? No Satisfied with current living situation? No Comments PT lives with her and their child at her parents home. Food/Weight/Diet Expectations of change The initial goal is to lose at least 10% of your weight, which is about 33 lbs. Weight goal: 294lbs. PT started the program at 327 on 07/10/2024. Weight as of 08/08/2024: 322 lbs Weight as of 08/22/2024: 324 lbs. PT is not yet focusing on bigger weight goals, but she wants to improve her health, be more active and try to see if by losing weight her PCOS will improve also. PT is implementing the following: Current meal plan: doing a combination of shakes, bars, and 1 meal a day (dinner, /) Exercise plan: go to the local [place] 3x week. Scale: Yes. Communication with Dr. Grimes: yes, on Tuesdays. History/Relationship with food Patient reports having a love/hate relationship with food and acknowledges not always making the healthiest choices. While she denies engaging in stress or emotional eating, she notes frequently relying on take-out or fast food after a long day or when feeling tired. Example of meals before starting the program: Breakfast: 7 am, eggs with toast. Am snacks: none. Lunch: noon- burger, chicken, hot dog PM snacks: Pretzels, chips. Dinner: 6 pm - salad with chicken Beverages: Coffee: 1 cup in the morning, 2-4 times a week. Tea: none. soda: Regular Coke, 3 cans/day. Juice: Crystal Light, 0 amando. Energy Drinks: None. Protein shakes: None. ETOH: rarely History/Relationship with weight Patient reports she has always been on the heavier side and weighed approximately 160 lbs during high school. Over time, she developed obesity. She was diagnosed with polycystic ovary syndrome (PCOS) about 12 years ago, which has contributed to weight fluctuations. She notes that managing her weight has become increasingly difficult with age. Over the past 10 years, her weight has ranged from a low of 230?250 lbs (prior to the COVID-19 pandemic) to a high of 330 lbs. History/Relationship with dieting In April 2024, patient trialed Wegovy 0.25 mg for one month, resulting in a 17 lb weight loss. She has also attempted various other weight loss strategies, including Weight Watchers, a gym membership, self-directed dieting, and a low-carb diet. She reports typically losing around 10 lbs over a few months but then becoming unmotivated due to a lack of consistent or steady results. Binge Eating Do you frequently eat large amounts of food in short periods of time, not feeling physically hungry? No Do you feel out of control when you eat a large amount of food in a short period of time? No Do you eat large amounts of food rapidly and typically alone? No Night Eating Do you wake up at least once during the night to eat? No If you wake up in the night, do you find that it is necessary to eat something in order to fall back asleep? No Do you have little or no appetite in the morning and feel very hungry in the evening, often overeating between dinner and when you go to bed? No Social History Family history and relationship PT got 2 years ago. They are in the process of adopting their 2 year old foster daughter. Father in February. Her mother is alive and remarried her stepdad. PT currently lives with them. She has 1 brother from her mom and dad, and 2 stepsiblings who are from her step-dad. PT reports good family relationships. Parental/Familial senior oracle pl sql developer obligations 2-year-old daughter. They started fostering her and are in the process of finalizing the adoption. Developmental history and status None reported. Currently WNL. Social support , family in general (parents, siblings) and some friend. Community support PCP. Yarsanism/Spirituality Mandaen. Cultural/Ethnic information . Legal Involvement and History Current or historical involvement with the legal system? None reported. Education Highest grade completed HS. some college. Preferred learning style Visual Currently enrolled in educational program? No Interested in further educational program? No Educational Interests/Skills Health care. 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 ) Meaningful activities Family activities, outside activities. Reading. Financial Situation Describe current financial situation Comfortable Financial assistance? Other (WIC + fostering payments. ) Service Service? No Mental Health and Addiction Treatment Current/Past substance abuse? No Comments Alcohol: socially. once every couple months. 1-2 drinks. Cigarettes/Tobacco: None Cannabis/Edibles: None Current/Past addictive behavior concerns? No Psychiatric history Patient reports attending therapy approximately five years ago due to symptoms of anxiety and depression. At that time, she was working while also caring for her ill father, who has since . Her primary care provider prescribed trazodone during that period, but she has not taken the medication for approximately one year. Patient denies any history of psychiatric hospitalization or mental health crises. She also denies any history of self-harm, suicidal ideation, or thoughts of harming others. Medical and Physical Health Summary Additional Medical History not covered in history None reported. Sexual History concerns None reported. Although she believes she has infertility issues due to the PCOS. Physical exam in the last year? Yes (June/2024.) Pain Screening Current pain? No Pain in the last few months? No Medications Is the patient compliant with medications? Yes Does the patient have Riley Guardian in place? Not applicable Does the patient use complimentary health approaches? No Trauma/Abuse History History of trauma? No Questionnaires PHQ-9 Over the last 2 weeks, how often have you been bothered by any of the following problems? 1. Little interest or pleasure in doing things: not at all 2. Feeling down, depressed, or hopeless: not at all 3. Trouble falling or staying asleep, or sleeping too much: not at all 4. Feeling tired or having little energy: not at all 5. Poor appetite or overeating: not at all 6. Feeling bad about yourself - or that you are a failure or have let yourself or your family down: not at all 7. Trouble concentrating on things, such as reading the newspaper or watching television: not at all 8. Moving or speaking so slowly that other people could have noticed. Or the opposite - being so fidgety or restless that you have been moving around a lot more than usual: several days 9. Thoughts that you would be better off or of hurting yourself in some way: not at all Total score: 1 Depression Screening Interpretation: Negative Depression Screening Done: Yes 66858 - PHQ-9 Billing: Yes Source: Developed by Drs. Joe Hammond, Iman Montenegro, Aristeo Wright and colleagues, with an educational rob from [employer]. Binge Eating Scale Group 1 A. I don't feel self-conscious about my wt. or body size when I'm with others. B. I feel concerned about how I look to others, but it normally does not make me fell disappointed with myself C. I do get self-conscious about my appearance and wt. which makes me feel disappointed in myself. D. I feel very self-conscious about my wt. and frequently I feel intense shame and disgust for myself. I try to avoid social contacts because of my self-consciousness. Response Group 1: C Group 2 A. I don't have any difficulty eating slowly in the proper manner. B. Although I seem to gobble down foods, I don't end up feeling stuffed because of eating to much. C. At times, I tend to eat quickly and then, I feel uncomfortably full afterwards. D. I have the habit of bolting down my food, without really chewing it. When this happens I usually feel uncomfortably stuffed because I've eaten to much. Response Group 2: A Group 3 A. I feel capable to control my eating urges when I want to. B. I feel like I have failed to control my eating more than the average person. C. I feel utterly helpless when it comes to feeling in control of my eating urges. D. Because I feel so helpless about controlling my eating I have become very desperate about trying to get control. Response Group 3: B Group 4 A. I don't have the habit of eating when I'm bored. B. I sometimes eat when I'm bored, but often I'm able to get busy and get my mind off food. C. I have a regular habit of eating when I'm bored, but occasionally, I can use some other activity to get my mind off eating. D. I have a strong habit of eating when I'm bored. Nothing seems to help me breath the habit. Response Group 4: B Group 5 A. I'm usually physically hungry when I eat something. B. Occasionally, I eat something on impulse even though I really am not hungry. C. I have the regular habit of eating foods, that I might not really enjoy, to satisfy a hungry feeling even though physically, I don't need the food. D. Although I'm not physically hungry, I get a hungry feeling in my mouth that only seems to be satisfied when I eat a food, like sandwich, that fills my mouth. Sometimes, when I eat the food to satisfy my mouth hunger, I then spit the food out so I won't gain weight. Response Group 5: A Group 6 A. I don't feel any guilt or self-hate after I overeat. B. After I overeat, occasionally I feel guilt or self-hate. C. Almost all the time I experience strong guilt or self-hate after I overeat. Response Group 6: B Group 7 A. I don't lose total control of my eating when dieting even after periods when I overeat. B. Sometimes when I eat a forbidden food on a diet, I feel like I blew it and eat even more. C. Frequently, I have the habit of saying to myself, I've blown it now, why not go all the way, when I overeat on a diet. When that happens I eat more. D. I have a regular habit of starting a strict diets for myself but I break the diets by going on an eating binge. My life seems to be either a feast or famine. Response Group 7: B Group 8 A. I rarely eat so much food that I feel uncomfortably stuffed afterwards. B. Usually about once a month, I each such a quantity of food, I end up feeling very stuffed. C. I have regular periods during the month when I eat large amounts of food, either at mealtime or at snacks. D. I eat so much food that I regularly feel quite uncomfortable after eating and sometimes a bit nauseous. Response Group 8: A Group 9 A. My level of calorie intake does not go up very high or go down very low on a regular basis. B. Sometimes after I overeat, I will try to reduce my caloric intake to almost nothing to compensate for the excess calories I've eaten. C. I have a regular habit of overeating during the night. It seems that my routine is not to be hungry in the morning but overeat in the evening. D. In my adult years, I have had week-long periods where I practically starve myself. This follows periods when I overeat. It seems I live a life of either feast or famine. Response Group 9: A Group 10 A. I usually am able to stop eating when I want to. I know when enough is enough. B. Every so often, I experience a compulsion to eat which I can't seem to control. C. Frequently, I experience strong urges to eat which I seem unable to control, but at other times I can control my eating urges. D. I feel incapable of controlling urges to eat. I have a fear of not being able to stop eating voluntarily. Response Group 10: A Group 11 A. I don't have any problem stopping eating when I feel full. B. I usually can stop eating when I feel full but occasionally overeat leaving me feeling uncomfortably stuffed. C. I have a problem stopping eating once I start and usually I feel uncomfortably stuffed after I eat a meal. D. Because I have a problem not being able to stop eating when I want, I sometimes have to induce vomiting to relieve my stuffed feeling. Response Group 11: A Group 12 A. I seem to eat just as much when I'm with others, Family social gatherings as when I'm by myself. B. Sometimes, when I'm with other persons, I don't eat as much as I want to eat because I'm self-conscious about my eating. C. Frequently, I eat only a small amount of food when others are present, because I'm very embarrassed about my eating. D. I feel so ashamed about overeating that I pick times to overeat when I know no one will see me. I feel like a closet eater. Response Group 12: A Group 13 A. I eat three meals a day with only an occasional between meal snack. B. I eat 3 meals a day, but I also normally snack between meals. C. When I am snacking heavily, I get in the habit of skipping regular meals. D. There are regular periods when I seem to be continually eating, with no planned meals. Response Group 13: A Group 14 A. I don't think much about trying to control unwanted eating urges. B. At least some of the time, I feel my thoughts are pre-occupied with trying to control my eating urges. C. I feel that frequently I spend much time thinking about how much I ate or about trying not to eat anymore. D. It seems to me that most of my waking hours are pre-occupied by thoughts about eating or not eating. I feel like I'm constantly struggling not to eat. Response Group 14: A Group 15 A. I don't think about food a great deal. B. I have strong craving for food but they last only for brief periods of time. C. I have days when I can't seem to think about anything else but food. D. Most of my days seem to be pre-occupied with thoughts about food. I feel like I live to eat. Response Group 15: B Group 16 A. I usually know whether or not I'm physically hungry. I take the right portion of food to satisfy me. B. Occasionally, I feel uncertain about knowing whether or not I'm physically hungry. A these times it's hard to know how much food I should take to satisfy me. C. Even though I might know how many calories I should eat, I don't have any idea what is a normal amount of food for me. Response Group 16: A Binge Eating Score: 7 Score less than 17 Minimal Risk Score between 18-26 Moderate Risk Score between 27-46 High Risk Assessment & Plan Assessment & Plan (1) Adjustment disorder: Code(s): F43.20 - Adjustment disorder, unspecified (2) Pre-bariatric surgery psychological evaluation: Code(s): Z71.89 - Other specified counseling Plan The patient has been cleared from a behavioral health standpoint and can be submitted for insurance approval when ready. She has requested to return in three weeks for additional support. Next Appointment: September 19, 2024, at 9:00 AM via telehealth. Telehealth Telehealth Telehealth Platform: [facility] Location of provider rendering services: other Location of patient: address on file Patient Identification confirmed using: Name, : Yes Telehealth method: video Patient verbally consented to treatment: Yes Patient verbally consented to billing insurance company: Yes Patient informed of any privacy concerns related to visit: Yes Minutes spent on Phone/Video with Pt.: 50 Coding Level of Care Code Established Pt Tele Psytx 45 mins (86229) Patient Type Established Diagnoses Adjustment disorder F43.20 Pre-bariatric surgery psychological evaluation Z71.89 Additional Codes PHQ-9 - 97337 - PHQ-9 Billing: Yes ([id number]) Time Spent (min) 50
== END 2024-08-28 09:51 | disposition home or self-care (01) ==
LOC: HO.HBST 09:12
PROVIDERS: PCP Internal Medicine; Visit Provider Counselor Mental Health
DX: F43.20 Adjustment disorder, unspecified (principal); Z71.89 Other specified counseling
CPT/HCPCS: 90834

== ENCOUNTER 2024-09-06 08:04 | Outpatient (AMB) | payer OTHER, SELFPAY ==
[2024-09-06 08:07] VITALS: BP 118/74; PULSE 74; TEMP 36.5; O2SAT 96; BMI 53.6
--- NOTE | 2024-09-06 08:07 | AM.OFFWIN_ITS ---
Intake Vital Signs 09/06/24 08:07 Height 5 ft 5.5 in Weight 327 lb BMI 53.6 BP 118/74 Blood Pressure Location Rt brachial Position Sitting Pulse 74 Pulse Source Pulse Oximeter Temp 97.7 F Temp Source Oral Pulse Oximetry (%) 96 Oxygen Delivery Method Room Air Intake Visit Reasons: EP ear pain/Sinus pressure Patient Tobacco Use Status: Never used Tobacco Allergies cortisone [CORTISONE] Allergy (Unknown, Verified 09/06/24 08:07) Anaphylaxis,hives,chest pain succinylcholine Adverse Reaction (Severe, Verified 09/06/24 08:07) Unresponsive Do you need a note to return to daycare/school/sports/work: No HPI HPI Comments History of Present Illness Details History - The patient is a 34-year-old female pr esenting with blocked ears and sinus pressure. - She reports left ear blockage persisti ng for two weeks, with worsening discomfort and tinnitus. - No fever is reported, although a cough was present this morning. - The patient describes intense sinus pr essure. - She has a history of seasonal allergie s, controlled with daily Tania and twice-daily Flonase, though sinus rinses have been ineffective. - There is no history of shortness of br eath or wheezing. - The patient has chronic ear issues but has not required tympanostomy tubes. - She previously underwent tonsillectomy following an ENT consultation. Physical Exam General: Cooperative, healthy appearing, comfortable and no acute distress Orientation/consciousness: Patient oriented x3 Limitations: No limitations Head: Normal to inspection Ears: hearing grossly normal bilaterally, external ears normal, TMs with erythema bilaterally Nose: Normal external nose present, Normal nares present and No nasal discharge present Face and sinus: Normal facial exam and sinuses tender Mouth: Normal oral and palatal mucosa present and moist mucous membranes Throat: Yes tonsils normal, Yes uvula midline. Posterior oropharynx erythema Eyes: Appearance normal, both eyes and all related structures Neck: Normal visual inspection Respiratory: Clear to auscultation bilaterally. Normal respiratory effort, able to speak in complete sentences, not actively coughing, no respiratory distress, not tachypneic, no tripod positioning and no use of accessory muscles Cardiovascular: Regular rate and rhythm. Normal S1 and S2 Skin: No rashes or lesions noted Neuro: Patient oriented x3 Extremities: Normal to inspection and Yes no clubbing, cyanosis or edema [facility] Medical History (Updated 09/06/24 @ 08:45 by Adelina Feliciano PA-C) Back pain Pseudocholinesterase deficiency Obstructive sleep apnea Allergic rhinitis Morbid obesity with BMI of 50.0-59.9, adult Chronic tonsillar hypertrophy Impaired fasting glucose Pre-diabetes Adjustment disorder, unspecified PCOS (polycystic ovarian syndrome) GERD (gastroesophageal reflux disease) Morbid obesity Surgical History S/P tonsillectomy (~12/11/21) History of incision and drainage Family History Father Bipolar 1 disorder COPD (chronic obstructive pulmonary disease) Psoriasis Eczema Depression Chronic mental illness Mother Hypothyroidism Rheumatoid arthritis Brother In good health Paternal Aunt Breast cancer Paternal Uncle Pancreatic cancer Other Mental health disorder Social History (Updated 06/29/24 @ 10:26 by Misty Payan [facility]) Housing: House Alcohol intake: current Alcohol intake frequency: holidays/special occasions only Patient Tobacco Use Status: Never used Tobacco Tobacco use type: Cigarette e-Cigarette/Vaping Use: Never Used Second Hand Smoke Exposure: No service: No Current occupational status: employed Cognitive needs: No Hearing needs: No Vision needs: Yes Female Reproductive History Menstrual Age of Menarche: 11 Review of Systems Const All systems reviewed & are unremarkable except as noted in HPI and below Physical Exam Vital Signs: Last Vital Signs Temp 97.7 F 09/06/24 08:07 Pulse 74 09/06/24 08:07 BP 118/74 09/06/24 08:07 Pulse Ox 96 09/06/24 08:07 Oxygen Delivery Method Room Air 09/06/24 08:07 BMI result Body Mass Index 53.6 Assessment & Plan Assessment & Plan (1) Acute bacterial sinusitis: Code(s): J01.90 - Acute sinusitis, unspecified; B96.89 - Other specified bacterial agents as the cause of diseases classified elsewhere Plan: VSS, pt well appearing and PE unremarkable. The patient is suspected to have sinusitis with secondary ear blockage. A prescription for prednisone, 20 mg daily, has been provided to reduce inflammation, considering the patient's prior tolerance to this medication. An antibiotic is also prescribed to address potential bacterial involvement, given the chronic nature of symptoms. The patient is instructed to take prednisone in the morning to avoid side effects like insomnia. Prescriptions have been sent to the designated pharmacy. Follow-up is advised if symptoms do not improve with treatment. Patient was informed and verbally consented to the use of an ambient scribe for clinic note documentation during this visit Medications: New amoxicillin-pot clavulanate 875-125 mg 1 tab PO Q12H 14 tabs 0RF prednisone 20 mg PO QAM 5 tabs 0RF Coding Level of Care Code Est Pt Level 3 (02543) Diagnoses Acute bacterial sinusitis J01.90; B96.89
== END 2024-09-06 08:46 | disposition home or self-care (01) ==
PROVIDERS: PCP Internal Medicine; Visit Provider Physician Assistant
DX: J01.90 Acute sinusitis, unspecified (principal); B96.89 Other specified bacterial agents as the cause of diseases classified elsewhere

== ENCOUNTER → 2024-09-06 08:04 | Outpatient (BNVA) | payer OTHER, SELFPAY | PROVIDERS: PCP Internal Medicine; Visit Provider Physician Assistant | DX: Z13.89 Encounter for screening for other disorder (principal) ==

== ENCOUNTER 2024-09-27 09:20 | Outpatient (AMB) | payer OTHER, SELFPAY ==
[2024-09-27 09:21] VITALS: BP 116/80; PULSE 74; O2SAT 97; BMI 53.2
--- NOTE | 2024-09-27 09:21 | MHC.PC.OV ---
Vital Signs 09/27/24 09:21 Height 5 ft 5.5 in Weight 324 lb 8 oz BMI 53.2 BP 116/80 Blood Pressure Location Lt brachial Position Sitting Pulse 74 Pulse Source Pulse Oximeter Pulse Oximetry (%) 97 Oxygen Delivery Method Room Air Intake Visit Reasons: 3 month f/u Assistant Engineer Required: No Accompanied by: Significant Other Allergies cortisone (CORTISONE) Allergy (Unknown, Verified 09/27/24 09:21) Anaphylaxis,hives,chest pain succinylcholine Adverse Reaction (Severe, Verified 09/27/24 09:21) Unresponsive Medication List - Last Reconciled 09/27/24 by Anjali Villaseñor MD azelastine intranasal fexofenadine-pseudoephedrine 180-240 mg ER (Tania-D 24 Hour) 1 tab PO QAM nystatin 1 appl topical BID vitamin A palmitate 10,000 units PO DAILY Tobacco use date assessed: 09/27/24 Dental Screening Dental Screen Date: 09/27/24 Did you have a dental visit in the last 12 months?: Yes Did you have a dental problem in the last 6 months where you did not have access to dental care?: No Was dental information given to patient?: Patient has dentist HPI 3 month f/u HPI Details insurance did not cover and need to have 6 months of in program. complains of feetds swelling [facility] Medical History (Updated 09/27/24 @ 09:53 by Anjali Villaseñor MD) Back pain Pseudocholinesterase deficiency Obstructive sleep apnea Allergic rhinitis Morbid obesity with BMI of 50.0-59.9, adult Chronic tonsillar hypertrophy Impaired fasting glucose Pre-diabetes Adjustment disorder, unspecified PCOS (polycystic ovarian syndrome) GERD (gastroesophageal reflux disease) Morbid obesity Surgical History S/P tonsillectomy (~12/11/21) History of incision and drainage Family History Father Bipolar 1 disorder COPD (chronic obstructive pulmonary disease) Psoriasis Eczema Depression Chronic mental illness Mother Hypothyroidism Rheumatoid arthritis Brother In good health Paternal Aunt Breast cancer Paternal Uncle Pancreatic cancer Other Mental health disorder Social History Housing: House Alcohol intake: current Alcohol intake frequency: holidays/special occasions only Patient Tobacco Use Status: Never used Tobacco Tobacco use type: Cigarette e-Cigarette/Vaping Use: Never Used Second Hand Smoke Exposure: No service: No Current occupational status: employed Cognitive needs: No Hearing needs: No Vision needs: Yes Female Reproductive History Menstrual Age of Menarche: 11 Questionnaire PHQ-9 Over the last 2 weeks, how often have you been bothered by any of the following problems? 1. Little interest or pleasure in doing things: not at all 2. Feeling down, depressed, or hopeless: not at all 3. Trouble falling or staying asleep, or sleeping too much: not at all 4. Feeling tired or having little energy: not at all 5. Poor appetite or overeating: not at all 6. Feeling bad about yourself - or that you are a failure or have let yourself or your family down: not at all 7. Trouble concentrating on things, such as reading the newspaper or watching television: not at all 8. Moving or speaking so slowly that other people could have noticed. Or the opposite - being so fidgety or restless that you have been moving around a lot more than usual: not at all 9. Thoughts that you would be better off or of hurting yourself in some way: not at all Total score: 0 Depression Screening Interpretation: Negative Depression Screening Done: Yes 70185 - PHQ-9 Billing: Yes Source: Developed by Drs. Joe Hammond, Iman Montenegro, Aristeo Wright and colleagues, with an educational rob from [employer]. Thrive Questionnaire Date Thrive assessed: 09/27/24 I am a: Patient What is your living situation today?: I have a steady place to live Within the past 12 months, did the food you bought not last and you didn't have the money to get more?: Never true Within the past 12 months, did you worry whether your food would run out before you got money to buy more?: Never true Do you have trouble paying for medicines?: No Do you have trouble getting transportation to medical appointments?: No Do you have trouble paying your heating and electricity bill?: No Do you have trouble taking care of your child, family member or friend?: No Do you have trouble with day-to-day activities such as bathing, preparing meals, shopping, managing finances, etc.?: No Are you currently unemployed and looking for a job?: No Are you interested in more education?: No Please select the resources that you would like help with: None Currently or been in a relationship where the following occur: No concerns reported THRIVE Score: 0 AUDIT C Alcohol Use Questionnaire (AUDIT-C) 1. How often do you have a drink containing alcohol?: Monthly or less 3. How often do you have six or more drinks on one occasion?: Never Total Score: 1 EDUARDO-7 AMB Questionnaire EDUARDO-7 Date EDUARDO - 7 assessed: 09/27/24 Feeling nervous, anxious, or on edge: 0 = Not at all Not being able to stop or control worryin = Not at all Worrying too much about different things: 0 = Not at all Trouble relaxin = Not at all Being so restless that it is hard to sit still: 0 = Not at all Becoming easily annoyed or irritable: 0 = Not at all Feeling afraid as if something awful might happen: 0 = Not at all Total EDUARDO-7 score (0-4 normal; 5-9 mild; 10-14 moderate; 15-21 severe): 0 Source: Developed by Drs. Joe Hammond, Iman Montenegro, Aristeo Wright and colleagues, with an educational rob from [employer]. Physical exam (Primary Care) Vital Signs: Last Vital Signs Pulse 74 09/27/24 09:21 BP 116/80 09/27/24 09:21 Pulse Ox 97 09/27/24 09:21 Oxygen Delivery Method Room Air 09/27/24 09:21 BMI result Body Mass Index 53.2 Tobacco/Smoking Status: Tobacco use Status Tobacco use date assessed 09/27/24 09/27/24 09:24 Patient Tobacco Use Status Never used Tobacco 09/27/24 09:24 Tobacco use type Cigarette 09/27/24 09:24 e-Cigarette/Vaping Use Never Used 09/27/24 09:24 PHQ-9: PHQ-9 Score PHQ-9: Total score 0 09/27/24 09:24 Depression Screening Interpretation: Negative Thrive Assessment: Date of Thrive Assessment Date Thrive assessed 09/27/24 09/27/24 09:24 Currently or been in a relationship where the following occur: No concerns reported Const General: alert; No acute distress Eyes Conjunctivae: conjunctivae normal Resp Auscultation: clear to auscultation bilaterally Cardio Rate: regular rate Rhythm: regular rhythm GI Inspection: Yes normal to inspection Extrem General: Yes normal to inspection and No edema Coding Level of Care Code Est Pt Level 4 (69727) Diagnoses Morbid obesity E66.01 GERD (gastroesophageal reflux disease) K21.9 Migraine without status migrainosus, not intractable, unspecified migraine type G43.909 Migraine type: unspecified Status migrainosus presence: without status migrainosus Intractability: not intractable Impaired fasting glucose R73.01 Tinea corporis B35.4 Peripheral vascular disease I73.9 Additional Codes PHQ-9 - 67396 - PHQ-9 Billing: Yes ([id number]) Assessment & Plan Assessment & Plan (1) Morbid obesity: Code(s): E66.01 - Morbid (severe) obesity due to excess calories Category: Medical Plan: Patient is seeing weight management and planned bariatric surgery (2) GERD (gastroesophageal reflux disease): Code(s): K21.9 - Gastro-esophageal reflux disease without esophagitis Category: Medical Plan: Avoid the foods that causes that usually spicy foods, tomato products, juices, coffee, soda and foods that your sensitive to. After eating do not lie down, allow 3-4 hours before in lie down. And keep the head of bed above 30 degrees to avoid the acid from going up. (3) Migraine: Code(s): G43.909 - Migraine, unspecified, not intractable, without status migrainosus Category: Medical Qualifiers: Migraine type: unspecified Status migrainosus presence: without status migrainosus Intractability: not intractable Qualified Code(s): G43.909 - Migraine, unspecified, not intractable, without status migrainosus Plan: Patient is advised to eat healthy, keep well hydrated, keep active and have adequate sleep. (4) Impaired fasting glucose: Code(s): R73.01 - Impaired fasting glucose Category: Medical Plan: Decrease the amount of carbohydrate intake, pasta, bread, rice and potatoes are all sugar and that is aside from all the sweet stuff, remember that fruits are good but they are Sweet also. (5) Tinea corporis: Code(s): B35.4 - Tinea corporis Category: Medical (6) Peripheral vascular disease: Code(s): I73.9 - Peripheral vascular disease, unspecified Category: Medical Plan: When sitting down elevate the legs, exercise, and support stockings Plan History of Present Illness The patient is a 34-year-old female presenting for a follow-up visit. She has a history of Polycystic Ovary Syndrome (PCOS), Gastroesophageal Reflux Disease (GERD), and migraines. Recently, she visited an urgent care center for sinusitis and was prescribed Augmentin and prednisone. The patient is also managing obesity and is under a weight management program with a planned bariatric surgery, pending insurance approval after six months in the program. She has completed four months in the program, with October marking the sixth month. An ultrasound of the liver showed hepatic steatosis and splenomegaly, and a left renal calculus measuring 33 mm was noted. Her last blood work on July 19 showed normal blood count, electrolytes, and renal function, with elevated fasting blood sugar but normal hemoglobin A1c. Liver function tests were normal, and LDL cholesterol was 88 mg/dL. 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 She uses compression stockings to manage the swelling. She has a history of vitamin A deficiency, with other vitamins being within normal ranges. 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 Review of Systems - General: Reports intermittent edema in feet. - Respiratory: Denies dyspnea or cough. - Gastrointestinal: Reports GERD symptoms, denies abdominal pain. - Neurological: Reports migraines, denies dizziness or balance issues. - Genitourinary: Denies nocturia, reports normal bowel movements. Physical Exam Results - Labs: Normal blood count, electrolytes, renal function; elevated fasting blood sugar, normal hemoglobin A1c. - Imaging: Ultrasound showing hepatic steatosis, splenomegaly, and left renal calculus measuring 33 mm. Plan The patient will continue with her weight management program, aiming for bariatric surgery once insurance approval is obtained after six months in the program. She is advised to manage her edema through conservative measures such as using compression stockings and elevating her legs when possible. For her sinusitis, she was prescribed Augmentin and prednisone, with a caution to minimize steroid use. Her GERD will be managed with a reflux plan, and she is advised to monitor her symptoms. Regular follow-up is recommended to monitor her vitamin A levels and address any deficiencies. She is also reminded of her upcoming tetanus vaccination due in 2025. Patient was informed and verbally consented to the use of an ambient scribe for clinic note documentation during this visit. Discussion Notes I discussed with the patient the importance of continuing her weight management program and the potential benefits of bariatric surgery once insurance approval is obtained. We reviewed the management of her sinusitis with Augmentin and prednisone, emphasizing the need to minimize steroid use. I advised her on managing her edema through conservative measures and discussed her GERD management plan. We also reviewed her lab results, noting the need to monitor her vitamin A levels and reminded her of her tetanus vaccination due in 2025. Patient Instructions - Continue with the weight management program and prepare for bariatric surgery once approved. - Use compression stockings and elevate legs to manage swelling. - Take Augmentin and prednisone as prescribed for sinusitis, but minimize steroid use. - Follow the reflux management plan for GERD. - Monitor vitamin A levels and follow up as advised. - Remember to get a tetanus booster in 2025. Medications: New nystatin 1 appl topical BID 60 grams 0RF B35.4 - Tinea corporis
--- OUTSIDE RECORDS SUMMARY | 2024-09-27 10:14 | XMS_ITS | Patient Health Record ---
[facility] Address [address] [place] [address] Care Team Providers Care Shoe Reconditioner Name Role Phone Ingrid HAWKINS, Rachael Leavitt Primary Care Provider Wilfrid Smith Unavailable [phone] Allergies Allergen (clinical drug ingredient) Drug/Non Drug Allergy documented on EMR Reaction Allergy Type Onset Date Status Cortisone Unknown Drug Allergy Active Reason For Referral No Information Medications Medication SIG (Take, Route, Frequency, Duration) Notes Start Date End Date Status Tri-Sprintec 0.18/0.215/0.25 MG-35 MCG 1 tablet Orally Once a day Active Problems No Known Problems Plan Of Treatment No Information Insurance Providers Payer Name Payer Address Payer Phone Subscriber Number Group Number Insured Name Patient Relationship to Insured Coverage Start Date Coverage End Date [facility] [address] [place] [address] [id number] Arianna Siegel Self - patient is the insured Medical (General) History Medical History History ICD Code Psoriasis/eczema polycystic ovarian syndrome sleep apnea Plantar Fasciitis Calcaneal spur Bursitis Myositis
== END 2024-09-27 09:58 | disposition home or self-care (01) ==
LOC: HO.HMCH 09:20
PROVIDERS: PCP Internal Medicine; Visit Provider Internal Medicine
DX: K21.9 Gastro-esophageal reflux disease without esophagitis (principal); E66.01 Morbid (severe) obesity due to excess calories; G43.909 Migraine, unspecified, not intractable, without status migrainosus; Z68.43 Body mass index [BMI] 50.0-59.9, adult; R73.01 Impaired fasting glucose; B35.4 Tinea corporis; I73.9 Peripheral vascular disease, unspecified

== ENCOUNTER → 2024-09-27 09:20 | Outpatient (BNVA) | payer OTHER, SELFPAY | PROVIDERS: PCP Internal Medicine; Visit Provider Internal Medicine | DX: E66.01 Morbid (severe) obesity due to excess calories (principal); K21.9 Gastro-esophageal reflux disease without esophagitis; G43.909 Migraine, unspecified, not intractable, without status migrainosus; R73.01 Impaired fasting glucose; B35.4 Tinea corporis; I73.9 Peripheral vascular disease, unspecified; Z68.43 Body mass index [BMI] 50.0-59.9, adult | CPT/HCPCS: 96127 ==

== ENCOUNTER 2025-01-26 08:04 | Outpatient (AMB) | payer OTHER, SELFPAY ==
[2025-01-26 08:08] VITALS: BP 118/70; PULSE 73; TEMP 37.1; O2SAT 96; BMI 53.3
--- NOTE | 2025-01-26 08:08 | AM.OFFWIN_ITS ---
Intake Vital Signs 01/26/25 08:08 Height 5 ft 5.5 in Weight 325 lb BMI 53.3 BP 118/70 Blood Pressure Location Lt brachial Position Sitting Pulse 73 Pulse Source Pulse Oximeter Temp 98.7 F Temp Source Oral Pulse Oximetry (%) 96 Intake Visit Reasons: ep migraines Intake Note: pt is here for migraines for 4 days,no otc meds are helping Patient Tobacco Use Status: Never used Tobacco Allergies cortisone (CORTISONE) Allergy (Unknown, Verified 01/26/25 08:11) Anaphylaxis,hives,chest pain succinylcholine Adverse Reaction (Severe, Verified 01/26/25 08:11) Unresponsive Medication List - Last Reconciled 01/26/25 by Hayder Montiel MD azelastine intranasal fexofenadine-pseudoephedrine 180-240 mg ER (Tania-D 24 Hour) 1 tab PO QAM nystatin 1 appl topical BID tirzepatide (weight loss) (Zepbound) 7.5 mg (0.5 mL) subcut QWEEK vitamin A palmitate 10,000 units PO DAILY Do you need a note to return to daycare/school/sports/work: Yes HPI ep migraines HPI Details History of Present Illness The patient is a 34-year-old female presenting with a migraine. Migraine: - Onset: Four days ago. - Duration: Ongoing since onset. - Location: Originate from the eyeballs. - Characteristics: Worsening over time, not frequently experienced. - Associated symptoms: Mild nasal conges tion noted, absence of fever, postnasal drip, aural symptoms, nausea, and photopsia. - Previous treatments: Sudafed, Tylenol, and Ibuprofen were administered, with no relief from Tylenol. - Current status: Symptoms persist, phil cating moderate to severe intensity. Problem List - Migraine - Nasal Congestion Plan - Prescribe Sumatriptan along with Aleve to be taken once daily as needed, with a total of 5 tablets prescribed, for management of the migraine. - Advise the patient to monitor symptoms closely, maintain adequate hydration, and ensure adequate rest to support recovery. - Recommend continued use of Sudafed for nasal congestion as a means of alleviating associated symptoms. Review of Systems - General: No fever no chills - Neurological: no dizziness - Ear nose throat: No sore throat no hearing difficulty - Cardiovascular: No syncope, no chest pain, no palpitations - Gastrointestinal: No nausea vomiting or diarrhea Physical Exam General: No acute distress HEENT: Mild nasal congestion present, JOSÉ MIGUEL, EOMI Neck: Supple, no neck pain Respiratory system: Able to talk in full sentences, no audible wheeze Extremities: No new findings ASSISTANT DIRECTOR OF PUBLIC WORKS: Alert awake oriented x3 motor intact Skin: Normal turgor [facility] Medical History BMI 50.0-59.9, adult Back pain Pseudocholinesterase deficiency Obstructive sleep apnea Allergic rhinitis Morbid obesity with BMI of 50.0-59.9, adult Chronic tonsillar hypertrophy Impaired fasting glucose Pre-diabetes Adjustment disorder, unspecified PCOS (polycystic ovarian syndrome) GERD (gastroesophageal reflux disease) Morbid obesity Surgical History S/P tonsillectomy (~12/11/21) History of incision and drainage Family History Father Bipolar 1 disorder COPD (chronic obstructive pulmonary disease) Psoriasis Eczema Depression Chronic mental illness Mother Hypothyroidism Rheumatoid arthritis Brother In good health Paternal Aunt Breast cancer Paternal Uncle Pancreatic cancer Other Mental health disorder Social History Housing: House Alcohol intake: current Alcohol intake frequency: holidays/special occasions only Patient Tobacco Use Status: Never used Tobacco Tobacco use type: Cigarette e-Cigarette/Vaping Use: Never Used Second Hand Smoke Exposure: No service: No Current occupational status: employed Cognitive needs: No Hearing needs: No Vision needs: Yes Female Reproductive History Menstrual Age of Menarche: 11 Physical Exam Vital Signs: Last Vital Signs Temp 98.7 F 01/26/25 08:08 Pulse 73 01/26/25 08:08 BP 118/70 01/26/25 08:08 Pulse Ox 96 01/26/25 08:08 BMI result Body Mass Index 53.3 Assessment & Plan Assessment & Plan (1) Migraine: Code(s): G43.909 - Migraine, unspecified, not intractable, without status migrainosus Qualifiers: Migraine type: unspecified Status migrainosus presence: without status migrainosus Intractability: not intractable Qualified Code(s): G43.909 - Migraine, unspecified, not intractable, without status migrainosus (2) Sinus congestion: Code(s): R09.81 - Nasal congestion Plan . Migraine: - Onset: Four days ago. - Duration: Ongoing since onset. - Location: Originate from the eyeballs. - Characteristics: Worsening over time, not frequently experienced. - Associated symptoms: Mild nasal congestion noted, absence of fever, postnasal drip, aural symptoms, nausea, and photopsia. - Previous treatments: Sudafed, Tylenol, and Ibuprofen were administered, with no relief from Tylenol. - Current status: Symptoms persist, indicating moderate to severe intensity. Problem List - Migraine - Nasal Congestion Plan - Prescribe Sumatriptan along with Aleve to be taken once daily as needed, with a total of 5 tablets prescribed, for management of the migraine. - Advise the patient to monitor symptoms closely, maintain adequate hydration, and ensure adequate rest to support recovery. - Recommend continued use of Sudafed for nasal congestion as a means of alleviating associated symptoms. Medications: New sumatriptan succinate take one tab with one Aleve, if needed repeat only sumatriptan again in one hour , no more than 2 tabs in 24 hours 50 mg PO Q2-4H PRN 10 tabs 0RF migraine headache naproxen take one with Sumatriptan for headache, take one more 12 hour later if needed for headache 500 mg PO BID PRN 14 tabs 0RF pain Coding Level of Care Code Est Pt Level 3 (25396) Diagnoses Migraine without status migrainosus, not intractable, unspecified migraine type G43.909 Migraine type: unspecified Status migrainosus presence: without status migrainosus Intractability: not intractable Sinus congestion R09.81
--- OUTSIDE RECORDS SUMMARY | 2025-01-26 08:18 | XMS_ITS | Patient Health Record ---
Author Organization [facility] Address [address] [place] [address] Care Team Providers Care Veterinary Laboratory Technician Name Role Phone Ingrid HAWKINS, Rachael Leavitt Primary Care Provider Wilfrid Smith Unavailable [phone] Allergies Allergen (clinical drug ingredient) Drug/Non Drug [...] Insured Coverage Start Date Coverage End Date [facility] [address] [place] [address] [id number] Arianna Siegel Self - patient is the insured Medical (General) History Medical History History ICD Code Psoriasis/eczema polycystic ovarian syndrome sleep apnea Plantar Fasciitis Calcaneal spur Bursitis Myositis
--- OUTSIDE RECORDS SUMMARY | 2025-01-26 08:18 | XMS_ITS | Encounter Summary ---
Author Organization [facility] Address [address] [place] [address] Phone Care Team Providers Care Family Engagement Specialist Name Role Phone Kel Escalante MD Primary Care Provider [phone] Encounter Details Date Type Department Care Team (Late st Contact Info) Description 11/18/2022 Procedure Pass [facility], Ct Scan - [address] [address] Social History Tobacco Use Types Packs/Day Years Used Date Smoking Tobacco: Never Smokeless Tobacco: Never Alcohol Use Standard Drinks/Week Comments Yes 2 (1 standard drink = 0.6 oz pur e alcohol) Education Answer Date Recorded Are you interested in more education? Not on delroy e 11/18/2022 Are you concerned about learning? Not on file 11/18/2022 No 11/18/2022 No 11/18/2022 Digital Access Answer Date Recorded No 11/18/2022 No 11/18/2022 Reliable internet access at home? Not on file 11/18/2022 Device with a working camera? Not on file Comments Unknown Sex and Gender Information Value Date Recorded Sex Assigned at Not on file Legal Sex Female 7:14 AM EDT Gender Identity Not on file Sexual Orientation Not on file documented as of this encounter Plan of Treatment Not on file documented as of this encounter Visit Diagnoses Not on filedocumented in this encounter Care Teams Family Engagement Specialist Relationship Specialty Start Date End Date Kel Escalante MD [address] [place] [address] [place] [address] PCP - General Internal Medicine 11/18/22 documented as of this encounter Additional Source Comments The information contained in this document represents components of the legal health record. It is not the complete legal health record.[facility]
--- OUTSIDE RECORDS SUMMARY | 2025-01-26 08:18 | XMS_ITS | Clinical Summary ---
Author Organization [facility] Address [address] [place] [address] Phone Care Team Providers Care Hydro Plant Site Manager Name Role Phone Kel Escalante MD Primary Care Provider [phone] Allergies Active Allergy Reactions Criticality Noted Date Comments Hydrocortisone Hives High 11/18/2022 Pt states he had alittle trouble swallowing but mostly hives Medications traZODone (DESYREL) 100 MG tablet Take 100 mg by mouth nightly at bedtime. Active Social History Tobacco Use Types Packs/Day Years Used Date Smoking Tobacco: Never Smokeless Tobacco: Never Tobacco Cessation:Counseling Given: Not Answered Alcohol Use Standard Drinks/Week Comments Yes 2 [...] on file Sexual Orientation Not on file Last Filed Vital Signs Vital Sign Reading Time Taken Comments Blood Pressure 136/73 11/18/2022 7:28 AM EDT Pulse 86 11/18/2022 7:28 AM EDT Temperature 36.6 C (97.9 F) 11/18/2022 7:28 AM EDT Respiratory Rate 16 11/18/2022 7:28 AM EDT Oxygen Saturation 93% 11/18/2022 7:28 AM EDT Inhaled Oxygen Concentration - - Weight 145.2 kg (320 lb) 11/18/2022 7:28 AM EDT Height 165.1 cm (5' 5 ) 11/18/2022 7:28 AM EDT Body Mass Index 53.25 11/18/2022 7:28 AM EDT Plan of Treatment Not on file Medical Devices Not on file Insurance UNITED PPO UNITED PPO UNITED PPO UNITED PPO UNITED PPO UNITED PPO [id number] Member Subscriber Plan / Payer (Ef fective 2022-Present) Name:Arianna Villareal Relation to Subscriber:Self Name:Arianna Villareal Payer ID:Not on file Group ID:Not on file Type:Indemnity Address: [address] Care Teams Hydro Plant Site Manager Relationship Specialty Start Date End Date Kel Escalante MD [address] [place] [address] [place] [address] PCP - General Internal Medicine 11/18/22 Additional Source Comments The information contained in this document represents components of the legal health record. It is not the complete legal health record.[facility]
== END 2025-01-26 08:26 | disposition home or self-care (01) ==
PROVIDERS: PCP Internal Medicine; Visit Provider Internal Medicine
DX: G43.909 Migraine, unspecified, not intractable, without status migrainosus (principal); R09.81 Nasal congestion

== ENCOUNTER → 2025-01-26 08:04 | Outpatient (BNVA) | payer OTHER, SELFPAY | PROVIDERS: PCP Internal Medicine | DX: R09.81 Nasal congestion (principal); G43.909 Migraine, unspecified, not intractable, without status migrainosus | CPT/HCPCS: 99212 ==

== ENCOUNTER 2025-02-13 07:40 | Day surgery (SDC) | payer OTHER, SELFPAY ==
--- OUTSIDE RECORDS SUMMARY | 2025-02-07 13:43 | XMS_ITS | Patient Health Record ---
[facility] Address [address] [place] [address] Care Team Providers Care Hydrotreater Operator Name Role Phone Ingrid HAWKINS, Rachael Leavitt Primary Care Provider Wilfrid Smith Unavailable [phone] Allergies Allergen (clinical drug ingredient) Drug/Non Drug [...] Insured Coverage Start Date Coverage End Date [facility] [address] [place] [address] [id number] Arianna Siegel Self - patient is the insured Medical (General) History Medical History History ICD Code Psoriasis/eczema polycystic ovarian syndrome sleep apnea Plantar Fasciitis Calcaneal spur Bursitis Myositis
--- OUTSIDE RECORDS SUMMARY | 2025-02-07 13:43 | XMS_ITS | Encounter Summary ---
Author Organization Located [facility] Address [address] [place] [address] Phone Care Team Providers Care Museum Service Scheduler Name Role Phone Kel Escalante MD Primary Care Provider [phone] Encounter Details Date Type Department Care Team (Late st Contact Info) Description 11/18/2022 Procedure Pass [facility], Ct Scan - [address] [address] Social History Tobacco Use Types Packs/Day Years [...] on filedocumented in this encounter Care Teams Museum Service Scheduler Relationship Specialty Start Date End Date Kel Escalante MD [address] [place] [address] [place] [address] PCP - General Internal Medicine 11/18/22 documented as of this encounter Additional Source Comments The information contained in this document represents components of the legal health record. It is not the complete legal health record.[facility]
--- OUTSIDE RECORDS SUMMARY | 2025-02-07 13:43 | XMS_ITS | Clinical Summary ---
Author Organization [facility] Address [address] [place] [address] Phone Care Team Providers Care French Binding Folder Name Role Phone Kel Escalante MD Primary Care Provider [phone] Allergies Active Allergy Reactions Criticality Noted Date [...] PPO UNITED PPO UNITED PPO UNITED [id number] Subscriber Plan / Payer (Ef fective 2022-Present) Name:Arianna Villareal Relation to Subscriber:Self Name:Arianna Villareal Payer ID:Not on file Group ID:Not on file Type:Indemnity Address: [address] Care Teams French Binding Folder Relationship Specialty Start Date End Date Kel Escalante MD [address] [place] [address] [place] [address] PCP - General Internal Medicine 11/18/22 Additional Source Comments The information contained in this document represents components of the legal health record. It is not the complete legal health record.[facility]
--- NOTE | 2025-02-08 14:24 | P.CONAN_ITS ---
Documented by User: Arianna Jean NP 02/08/25 14:25 HPI - Anesthesia Eval Consult details Narrative: 34yo F for ?Upper Endoscopy BMI 53 Pseudocholinesterase Deficiency Anesthesia Pre-Procedure Meds Is the patient on any of the following meds?: GLP1/DPP4 PMFSH Active Problems Active Problems: All Active Problems BMI 50.0-59.9, adult (Acute) Peripheral vascular disease (Acute) Tinea corporis (Acute) Acute bacterial sinusitis (Acute) Vitamin A deficiency (Acute) Sinus congestion (Acute) Urinary incontinence (Acute) Oligomenorrhea (Acute) Annual physical exam (Acute) Migraine (Acute) Insomnia (Acute) Vitamin B12 deficiency (Acute) Vitamin D deficiency (Acute) Back pain (Acute) Pseudocholinesterase deficiency (Acute) Allergic rhinitis (Acute) Impaired fasting glucose (Acute) PCOS (polycystic ovarian syndrome) (Acute) GERD (gastroesophageal reflux disease) (Acute) Morbid obesity (Acute) Past Medical History Medical History BMI 50.0-59.9, adult Back pain Pseudocholinesterase deficiency Obstructive sleep apnea Allergic rhinitis Morbid obesity with BMI of 50.0-59.9, adult Chronic tonsillar hypertrophy Impaired fasting glucose Pre-diabetes Adjustment disorder, unspecified PCOS (polycystic ovarian syndrome) GERD (gastroesophageal reflux disease) Morbid obesity Family History Family History Father Bipolar 1 disorder COPD (chronic obstructive pulmonary disease) Psoriasis Eczema Depression Chronic mental illness Mother Hypothyroidism Rheumatoid arthritis Brother In good health Paternal Aunt Breast cancer Paternal Uncle Pancreatic cancer Other Mental health disorder Surgical History Surgical History S/P tonsillectomy (~12/11/21) History of incision and drainage Social History Social History Housing: House Alcohol intake: current Alcohol intake frequency: holidays/special occasions only Patient Tobacco Use Status: Never used Tobacco Tobacco use type: Cigarette e-Cigarette/Vaping Use: Never Used Second Hand Smoke Exposure: No Use of substances other than those prescribed or required for medical reasons: No Advance Directives: No Advance Directives Information Provided: Yes service: No Current occupational status: employed Cognitive needs: No Hearing needs: No Vision needs: Yes Meds Allergies Allergy/AdvReac Type Severity Reaction Status Date / Time cortisone (CORTISONE) Allergy Unknown Anaphylaxis,hives,chest Verified 01/26/25 08:11 pain succinylcholine AdvReac Severe Unresponsiv Verified 01/26/25 08:11 e Home Medications ?Medication ?Instructions ?Recorded ?Confirmed ?Last Taken ?Type fexofenadine-pseudoephedrine ER 1 tab PO QAM 06/14/23 02/09/25 Unknown History 180 mg-240 mg tablet,ext.release 24 hr (Tania-D 24 Hour) azelastine 137 mcg (0.1 %) nasal intranasal 09/06/24 1 Unknown History spray Assessment and Plan Assessment Anesthesia Assessment: Chart Reviewed Documented by User: Lizbeth Hinojosa MD 02/13/25 10:18 [facility] Past Medical History Medical History BMI 50.0-59.9, adult Back pain Pseudocholinesterase deficiency Obstructive sleep apnea Allergic rhinitis Morbid obesity with BMI of 50.0-59.9, adult Chronic tonsillar hypertrophy Impaired fasting glucose Pre-diabetes Adjustment disorder, unspecified PCOS (polycystic ovarian syndrome) GERD (gastroesophageal reflux disease) Morbid obesity Family History Family History Father Bipolar 1 disorder COPD (chronic obstructive pulmonary disease) Psoriasis Eczema Depression Chronic mental illness Mother Hypothyroidism Rheumatoid arthritis Brother In good health Paternal Aunt Breast cancer Paternal Uncle Pancreatic cancer Other Mental health disorder Surgical History Surgical History S/P tonsillectomy (~12/11/21) History of incision and drainage History of Problems with Anesthesia: No Social History Social History Housing: House Alcohol intake: current Alcohol intake frequency: holidays/special occasions only Patient Tobacco Use Status: Never used Tobacco Tobacco use type: Cigarette e-Cigarette/Vaping Use: Never Used Second Hand Smoke Exposure: No Use of substances other than those prescribed or required for medical reasons: No Advance Directives: No Advance Directives Information Provided: Yes service: No Current occupational status: employed Cognitive needs: No Hearing needs: No Vision needs: Yes Meds Allergies Allergy/AdvReac Type Severity Reaction Status Date / Time cortisone (CORTISONE) Allergy Unknown Anaphylaxis,hives,chest Verified 01/26/25 08:11 pain succinylcholine AdvReac Severe Unresponsiv Verified 01/26/25 08:11 e Home Medications ?Medication ?Instructions ?Recorded ?Confirmed ?Last Taken ?Type fexofenadine-pseudoephedrine ER 1 tab PO QAM 06/14/23 02/09/25 Unknown History 180 mg-240 mg tablet,ext.release 24 hr (Tania-D 24 Hour) azelastine 137 mcg (0.1 %) nasal intranasal 09/06/24 1 Unknown History spray Exam Airway Mallampati Class: III TM Dist: >3cm Neck ROM: Full Loose/Missing/Broken Teeth: No Heart: RRR Lungs: CTA Assessment and Plan Assessment Anesthesia Assessment: Anesthesia Plan Discussed Final Anesthetic Review History of Problems with Anesthesia: No NPO: Yes ASA Class: III Final Preanesthetic Review: Meds/Allgs Chart Reviewed, Consent Obtained/Reviewed and Anes Risks/Benef Reviewed Patient Risk: Intermediate Procedure Risk: Intermediate Anesthetic Plan Anesthetic Plan: MAC: Disposition: Standard PACU
[2025-02-09 13:34] VITALS: BMI 54.4
[2025-02-13 08:14] VITALS: BMI 53.7
[2025-02-13 08:25] LABS: UPreg QC Valid YES
[2025-02-13 08:30] VITALS: BP 120/70; PULSE 77; RESP 16; TEMP 37; O2SAT 94
[2025-02-13] MEDS: Lactated Ringers 1,000 ML 100 ML IVCONT (08:30)
--- NOTE | 2025-02-13 09:58 | MHC.SHP ---
Pre-Procedural Eval Section A - 24 Hr Update-Section A only Date of Service: 02/13/25 The patient is an INPATIENT: No The patient has been examined within 24 hours of the surgical procedure. The History & Physical has been completed within 30 days and I have reviewed it.: Yes Section B - Complete if H&P > 30 days Chief Complaint: Morbid (severe) obesity due to excess calories Details of Present Illness: GERD Relevant Family History (Specify if Yes): No Relevant Social History: None Present Medications: None Medical History: No relevant PMH History of Previous Operations: No relevant previous surgery Allergies: Allergies Allergy/AdvReac Type Severity Reaction Status Date / Time cortisone (CORTISONE) Allergy Unknown Anaphylaxis,hives,chest Verified 01/26/25 08:11 pain succinylcholine AdvReac Severe Unresponsiv Verified 01/26/25 08:11 e Review of Systems Sugical H&P ROS: Negative: Constitution, Cardiovascular, Respiratory, Neurological, Psychiatric, Hem-Onc, Allergic/Immunologic, Gastrointestinal, Genitourinary, Musculoskeletal, Integumentary, Endocrine and Eyes/Ears/Nose/Throat Exam Surgical H&P Exam: Normal: HEENT, Normal: Heart, Normal: Lungs, Normal: Extremities, Normal: Abdomen, Normal: Skin and Normal: Neurological Plan Diagnosis/Plan: Unchanged (EGD to assess etiology of GERD. Risks of bleeding and perforation were discussed with the patient and she is in agreement with the plan.) I have reviewed the history and physical and performed a pertinent physical examination on my patient. No changes have occurred unless specified. Time Spent With Patient Time: Total time managing care of this patient today ____ minutes.
--- NOTE | 2025-02-13 10:00 | PM.OP ---
Brief Operative Note Date of Service: 02/13/25 Pre-op diagnosis: GERD Procedure: PROCEDURE DATE: 02/13/2025 PREOPERATIVE DIAGNOSIS: GERD POSTOPERATIVE DIAGNOSIS: ?Same as above. 2cm diaphragmatic hernia PROCEDURE: Jkltosus-iohvns-[id number] with biopsies Surgeon: Leyda Puri M.D.. Ph.D. Operations Management Professionals: None ? Anesthesia: IV sedation Estimated blood loss: ?Minimal FINDINGS AND PROCEDURE: ? OPERATIVE INDICATIONS: ?The patient is a 34 year old female known to me who is interested in bariatric surgery. The patient has GERD. Based on this information I recommended an upper endoscopy to evaluate the patient's symptoms. Risks and complications of the surgery were discussed with the patient in advance particularly the possibility of perforation or bleeding that may require surgical intervention. The patient understood the risks and was in agreement with the plan. ? PROCEDURE: After informed consent was obtained by the patient, the patient was ?transferred to the Operating Room and was placed in the supine position.? After successful induction of IV sedation, a mouth block was inserted and the patient was placed in the left lateral decubitus position. An upper endoscopy was performed next, the oropharynx and esophagus appeared within the normal limits. There was a 2cm diaphragmatic hernia. The z-line was smooth. Two biopsies were obtained from the distal esophagus 2-3 cm proximal to the GE junction and two additional biopsies from the GE junction. The stomach was entered and it appeared to be of normal size. There was no gastritis. There was no stricture or ulcer. A biopsy was obtained from the gastric fundus and the antrum. No significant bleeding was noted from any of the biopsy sites. Retroflexion of the scope confirmed the presence of a normal GE junction. The scope was then advanced into the duodenum which appeared to be normal as well. At that point the duodenum ?and the stomach were decompressed and the scope was withdrawn from the patient's mouth. The patient extubated and was transferred in stable condition to the Recovery Room for further care. I was present and performed all steps of the procedure. There were no residents to assist with this case. Isaac Puri M.D., Ph.D. Surgeon: Alexey Puri MD Anesthesia: MAC Was an Operations Management Professionals used for this Procedure?: No Estimated blood loss (mL): 0 IV fluids (mL): 400 Urine output (mL): 0 (No [place] to record output) Pathology: other (1) antrum x1, 2) fundus x1, 3) GE junction x2, 4) distal esophagus x2) Condition: stable Disposition: PACU
[2025-02-13 10:43] VITALS: BP 133/87; PULSE 87; RESP 18; TEMP 37.1; O2SAT 99
[2025-02-13 10:59] VITALS: BP 136/96; PULSE 88; RESP 22; TEMP 37.4; O2SAT 96
== END 2025-02-13 11:54 | disposition home or self-care (01) ==
PROVIDERS: Nurse Practitioner; PCP Internal Medicine; Visit Provider Surgery
PROC: 0DJ08ZZ Inspection of Upper Intestinal Tract, Via Natural or Artificial Opening Endoscopic (ICD-10-PCS; CPT 43235; principal; 2025-02-13 10:20)
DX: K21.9 Gastro-esophageal reflux disease without esophagitis (principal); E66.01 Morbid (severe) obesity due to excess calories; Z68.43 Body mass index [BMI] 50.0-59.9, adult; K44.9 Diaphragmatic hernia without obstruction or gangrene; E88.09 Other disorders of plasma-protein metabolism, not elsewhere classified; G47.33 Obstructive sleep apnea (adult) (pediatric); R73.03 Prediabetes; E28.2 Polycystic ovarian syndrome; J30.9 Allergic rhinitis, unspecified; Z79.85 Long-term (current) use of injectable non-insulin antidiabetic drugs; Z79.899 Other long term (current) drug therapy; Z88.8 Allergy status to other drugs, medicaments and biological substances
CPT/HCPCS: 43239; 81025; 88305; 88313; 88342; J2003; J2704

== ENCOUNTER → 2025-02-13 07:40 | Outpatient (BNV) | payer OTHER, SELFPAY | PROVIDERS: PCP Internal Medicine; Visit Provider Surgery | DX: K21.9 Gastro-esophageal reflux disease without esophagitis (principal); K44.9 Diaphragmatic hernia without obstruction or gangrene | CPT/HCPCS: 43239 ==

== ENCOUNTER 2025-02-16 23:13 | Emergency (ER) | payer OTHER, SELFPAY ==
--- NOTE | ~2025-02-16 | CT_ITS ---
CLINICAL HISTORY: upper abdo pain, vomiting CT abdomen and pelvis with contrast Comparison: CT - CT ABDOMEN PELVIS W IV CON - 02/17/25 02:35 EST Findings: The lung bases are clear without consolidation or effusion. Partially visualized right basilar right middle lobe 6 mm pulmonary nodule. Liver and gallbladder within normal limits. No biliary dilation. Spleen, bilateral adrenal glands, and kidneys are within normal limits. Multiple left subcentimeter nonobstructing renal stones are present measuring up to 6 mm and no hydronephrosis or hydroureter. No abdominal or pelvic free fluid. No retroperitoneal lymphadenopathy. Aorta is nonaneurysmal. IVC is patent. No bowel obstruction, pneumoperitoneum, or pneumatosis. Appendix is normal. Uterus and bladder within normal limits. Mild lumbar spine degenerative changes. No acute osseous abnormality. No acute soft tissue abnormality. IMPRESSION: No acute intra-abdominal or pelvic findings. Nonobstructing left renal stones measuring up to 6 mm in the lower pole. Incidental note of partially visualized 6 mm right basilar pulmonary nodule for which dedicated nonurgent CT chest can be performed for further characterization. This document has been electronically signed by: Estiven Ye MD on 02/17/2025 05:46:47
[2025-02-16 23:17] VITALS: BP 120/76; PULSE 88; RESP 18; TEMP 36.4; O2SAT 96; BMI 52.6
--- NOTE | 2025-02-16 23:23 | ED.GENADULT ---
HPI - General Adult General Chief complaint: Abdominal Pain Stated complaint: gas, nauseas, dizzy Time Seen by Provider: 02/16/25 23:23 Source: patient History of Present Illness ED Provider: Slime JARA narrative: The patient is a 34-year-old female with a history of morbid obesity who was pursuing possible weight loss surgery. She had upper endoscopy 3 days ago on Wednesday by Dr. Puri as part of her preoperative workup. There were apparently no concerning findings made on the upper endoscopy according to the patient although there may have been some kind of a diaphragmatic hernia. The patient says that on the day following the procedure she felt as though she has a lot of gas in her abdomen. She felt that her abdomen was bloated. She has also developed nausea. She says that for the past 2 days she has not felt well because of the symptoms. She indicates that she has discomfort in her epigastrium. She says that she has lost her appetite. She has no interest in food. When she does eat her vomit. She has had watery stools. No fevers. Related Data Home Medications ?Medication ?Instructions ?Recorded ?Confirmed fexofenadine-pseudoephedrine ER 1 tab PO QAM 06/14/23 02/09/25 180 mg-240 mg tablet,ext.release 24 hr (Tania-D 24 Hour) azelastine 137 mcg (0.1 %) nasal intranasal 09/06/24 01/26/25 spray Previous Rx's ?Medication ?Instructions ?Recorded vitamin A palmitate 3,000 mcg 10,000 unit PO DAILY #60 caps 07/25/24 (10,000 unit) capsule nystatin 100,000 unit/gram topical 1 appl topical BID #60 grams 12/23/24 powder tirzepatide (weight loss) 7.5 7.5 mg (0.5 mL) subcut QWEEK #2 mL 01/21/25 mg/0.5 mL subcutaneous pen injector (Zepbound) naproxen 500 mg tablet 500 mg PO BID PRN pain #14 tabs 01/26/25 sumatriptan succinate 50 mg tablet 50 mg PO Q2-4H PRN migraine 01/26/25 headache #10 tabs omeprazole 40 mg capsule,delayed 40 mg PO DAILY #30 caps 02/17/25 release sucralfate 1 gram tablet 1 g PO TID PRN epigastric 02/17/25 abdominal pain #60 tabs Allergies Allergy/AdvReac Type Severity Reaction Status Date / Time cortisone (CORTISONE) Allergy Unknown Anaphylaxis,hives,chest Verified 02/16/25 23:20 pain succinylcholine AdvReac Severe Unresponsiv Verified 02/16/25 23:20 e Review of Systems Review of Systems: Yes all other systems are reviewed and are negative [facility] Past Medical History Medical History BMI 50.0-59.9, adult Back pain Pseudocholinesterase deficiency Obstructive sleep apnea Allergic rhinitis Morbid obesity with BMI of 50.0-59.9, adult Chronic tonsillar hypertrophy Impaired fasting glucose Pre-diabetes Adjustment disorder, unspecified PCOS (polycystic ovarian syndrome) GERD (gastroesophageal reflux disease) Morbid obesity Surgical History S/P tonsillectomy (~12/11/21) History of incision and drainage Family History Family History Father Bipolar 1 disorder COPD (chronic obstructive pulmonary disease) Psoriasis Eczema Depression Chronic mental illness Mother Hypothyroidism Rheumatoid arthritis Brother In good health Paternal Aunt Breast cancer Paternal Uncle Pancreatic cancer Other Mental health disorder Social History Social History Housing: House Alcohol intake: current Alcohol intake frequency: holidays/special occasions only Patient Tobacco Use Status: Never used Tobacco Tobacco use type: Cigarette e-Cigarette/Vaping Use: Never Used Second Hand Smoke Exposure: No Advance Directives: No Advance Directives Information Provided: No Do you have a plan to hurt others: No Plan service: No Current occupational status: employed Cognitive needs: No Hearing needs: No Vision needs: Yes Physical Exam ED Vital Signs: Vital Signs - 24 hr 02/16/25 23:17 02/16/25 23:43 02/17/25 01:58 Temperature 97.5 F 98.1 F 97.5 F Pulse Rate 88 80 80 Respiratory Rate 18 18 18 Blood Pressure 120/76 109/61 106/63 Pulse Oximetry 96 97 95 Oxygen Delivery Method Room Air Room Air Room Air 02/17/25 04:13 Temperature 97.9 F Pulse Rate 77 Respiratory Rate 16 Blood Pressure 97/64 Pulse Oximetry 95 Oxygen Delivery Method Room Air BMI result Body Mass Index 52.6 Const Other: The patient is awake, alert, pleasant, cooperative. She does not appear obviously toxic or unwell. Orientation/consciousness: patient oriented x3 HENMT Other: The face is symmetrical. ?Mucous membranes moist. Eyes Other: Pupils are round equal, conjunctivae are clear, extraocular movements intact Neck Neck: Yes normal visual inspection, Yes full ROM and Yes no JVD Resp Effort & Inspection: normal respiratory effort Auscultation: clear to auscultation bilaterally Cardio Rate: regular rate Rhythm: regular rhythm Heart sounds: S1 normal heart sound present and S2 normal heart sound present GI Other: The patient has epigastric tenderness. There was also some mild right upper quadrant tenderness. No definite Richardson's sign. The abdomen is not rigid. No guarding Skin Other: The skin is dry and unremarkable Neuro General: patient oriented x3, gait normal, tone normal, moves all extremities, no focal motor deficits and CN's II-XI intact bilaterally Extrem Other: There is no calf swelling or tenderness. No asymmetry. No peripheral edema. Medications Administered Discontinued Medications Generic Name Dose Route Start Last Admin Trade Name Freq PRN Reason Stop Dose Admin Diphenhydramine HCl 25 mg 02/16/25 23:38 02/17/25 00:01 Diphenhydramine Hcl 50 Mg/Ml Vial IVPUSH 02/16/25 23:39 25 mg ONCE ONE Administration Famotidine 20 mg 02/16/25 23:38 02/17/25 00:01 Famotidine/Pf 20 Mg/2 Ml Vial IVPUSH 02/16/25 23:39 20 mg ONCE ONE Administration Acetaminophen 1,000 mg in 100 mls @ 400 mls/hr 02/16/25 23:38 02/17/25 00:16 Ofirmev IV 02/16/25 23:52 Infused ONCE ONE Infusion Sodium Chloride 1,000 mls @ 999 mls/hr 02/16/25 23:45 02/17/25 00:01 Ns IV 02/17/25 00:45 999 mls/hr .Q1H1M JOSE ANTONIO Administration Iohexol 100 ml 02/17/25 02:59 02/17/25 02:59 Iohexol 350 Mg/Ml 100 Ml Infus..Btl IV 02/17/25 03:00 100 ml ONCE ONE Administration Metoclopramide HCl 10 mg 02/16/25 23:38 02/17/25 00:01 Metoclopramide Hcl 10 Mg/2 Ml Vial IVPUSH 02/16/25 23:39 10 mg ONCE ONE Administration Sucralfate 1 gm 02/17/25 01:38 02/17/25 02:02 Sucralfate Oral Suspension 1 Gm/10 Ml Oral.Susp PO 02/17/25 01:39 1 gm ONCE ONE Administration Medical Decision Making Medical Decision Making [facility] Narrative: The patient is a 34-year-old female who presents with 3 days of abdominal symptoms following upper endoscopy. Clinically I thought her presentation seems more consistent with a gastritis than with an acute surgical process such as cholecystitis. The patient had laboratory evaluation and was given symptomatic treatment with IV acetaminophen, famotidine, metoclopramide, and diphenhydramine. She was also given IV fluids. The patient seemed to have a good response to these medications. Her pain seemed to resolve but then the pain returned and she complained of significant discomfort. At that point she was given oral sucralfate and I ordered a CT scan of the abdomen and pelvis. The sucralfate seemed to be effective for the patient's discomfort. The CT scan does not show any definite acute findings. At that point the patient was feeling better. She will be discharged with a prescriptions for omeprazole 40 mg daily and sucralfate 1 g t.i.d. p.r.n. epigastric pain. She should contact Dr. Puri on Wednesday to discuss how she is doing and to discuss whether he agrees with the patient being on these new medications. She should also follow up with her PCP. Return if worse. Lab Data 02/16/25 23:28 02/16/25 23:28 Labs: Lab Results 02/16/25 Range/Units 23:28 WBC 12.1 H (4.8-10.8) X10*3/uL RBC 5.09 (4.20-5.50) X10*6/uL Hgb 14.4 (12.0-16.0) g/dl Hct 42.9 (37.0-47.0) % MCV 84.3 (80.0-98.0) fL MCH 28.3 (27.0-33.0) pg MCHC 33.6 (31.0-35.0) g/dl RDW 13.4 (11.0-16.0) % Plt Count 317 (160-400) X10*3/uL MPV 8.9 L (9.4-12.3) fL Immature Gran % (Auto) 0.5 H (0.0-0.4) % Neut % (Auto) 59.0 (45-73) % Lymph % (Auto) 29.4 (20-40) % Kingfisher % (Auto) 6.6 (2-11) % Eos % (Auto) 4.1 H (0-4) % Baso % (Auto) 0.4 (0-2) % Lymph # (Auto) 3.5 (1.2-4.9) X10*3/uL King[place]isher # (Auto) 0.8 (0.1-1.2) X10*3/uL Eos # (Auto) 0.5 H (0.0-0.4) X10*3/uL Baso # (Auto) 0.1 (0.0-0.2) X10*3/uL Abs Immat Gran (auto) 0.06 H (0.00-0.03) X10*3/uL Absolute Neuts (auto) 7.1 (2.0-8.3) x10*3/uL Absolute Nucleated RBC 0.000 (0.0-0.012) X10*3/uL Nucleated RBC % (auto) 0.0 (0.0-0.2) /100WBC Sodium 141 (135-145) mmol/L Potassium 4.1 (3.3-5.1) mmol/L Chloride 106 (96-108) mmol/L Carbon Dioxide 27 (22-29) mmol/L Anion Gap 12 (12-20) BUN 13 (9-16) mg/dL Creatinine 0.65 (0.5-1.4) mg/dL Estim Creat Clear Calc 179.5 Estimated GFR > 60 Random Glucose 96 (60-115) mg/dL Calcium 8.9 (8.4-10.2) mg/dL Total Bilirubin 0.7 (0.0-1.0) mg/dL AST 25 (5-31) U/L ALT 28 (0-31) U/L Alkaline Phosphatase 62 (39-117) U/L C-Reactive Protein 0.87 H (< or = 0.50) mg/dL Total Protein 7.7 (6.5-8.0) g/dL Albumin 4.6 (3.5-5.0) g/dL Lipase 22 (8-78) U/L Beta HCG, Quant < 2 mIU/mL Discharge Plan Discharge Clinical Impression: Epigastric abdominal pain Patient Disposition: Home, Self-Care Additional Instructions: Your testing in the emergency room today seems reassuring. I believe that your symptoms may be related to problems with stomach acid production. You may have a case of what we call ?gastritis.? I have sent a prescription to your pharmacy for medication called omeprazole. Please take this medication once a day. This medication reduce his acid production in the stomach. Additionally I have sent a prescription for a medication called sucralfate that you may use on an as-needed basis. You may take this medication up to 3 times a day as needed. Sucralfate is a tablet that can be crushed and mixed in water to make a slurry. Some people prefer to take it this way. But you may also simply take it as a tablet. Please contact Dr. Puri on Wednesday to discuss your ER visit and your symptoms and these medications. Also plan on following up with your regular doctor. Return to the emergency room if significantly worse. Prescriptions: New omeprazole 40 mg capsule,delayed release(DR/EC) 40 mg PO DAILY Qty: 30 0RF sucralfate 1 gram tablet 1 g PO TID PRN (Reason: epigastric abdominal pain) Qty: 60 0RF No Action vitamin A palmitate 3,000 mcg (10,000 unit) capsule 10,000 unit PO DAILY Qty: 60 0RF nystatin 100,000 unit/gram powder 1 appl topical BID Qty: 60 0RF Zepbound 7.5 mg/0.5 mL pen injector 7.5 mg subcut QWEEK Qty: 2 0RF fexofenadine-pseudoephedrine [Tania-D 24 Hour] 180-240 mg tablet extended release 24 hr 1 tab PO QAM sumatriptan succinate 50 mg tablet 50 mg PO Q2-4H PRN (Reason: migraine headache) Qty: 10 0RF Rx Instructions: take one tab with one Aleve, if needed repeat only sumatriptan again in one hour , no more than 2 tabs in 24 hours naproxen 500 mg tablet 500 mg PO BID PRN (Reason: pain) Qty: 14 0RF Rx Instructions: take one with Sumatriptan for headache, take one more 12 hour later if needed for headache azelastine 137 mcg (0.1 %) spray,non-aerosol intranasal Referrals: Po,Anjali Gardiner MD [Primary Care Provider, Internal Medicine] Alexey Puri MD [Physician, Bariatric Surgery] Print Language: Lebanese
[2025-02-16 23:35] LABS: MANUAL DIFF FLAG NO
[2025-02-16 23:36] LABS: Hematocrit 42.9 % (37.0-47.0); Hemoglobin 14.4 g/dl (12.0-16.0); Imm Gran Abs Auto 0.06 X10*3/uL (0.00-0.03); Imm Gran Pct Auto 0.5 % (0.0-0.4); Lymphocytes Absolute Auto 3.5 X10*3/uL (1.2-4.9); Mean Corpuscular HGB Conc 33.6 g/dl (31.0-35.0); Mean Corpuscular Hemoglobin 28.3 pg (27.0-33.0); Mean Corpuscular Volume 84.3 fL (80.0-98.0); NRBC Abs Auto 0.000 X10*3/uL (0.0-0.012); NRBC Pct Auto 0.0 /100WBC (0.0-0.2); Platelet Count 317 X10*3/uL (160-400); Red Blood Count 5.09 X10*6/uL (4.20-5.50); White Blood Count 12.1 X10*3/uL (4.8-10.8)
[2025-02-16 23:43] VITALS: BP 109/61; PULSE 80; RESP 18; TEMP 36.7; O2SAT 97
[2025-02-16 23:51] LABS: Alanine Aminotransferase 28 U/L (0-31); Albumin Level 4.6 g/dL (3.5-5.0); Alkaline Phosphatase 62 U/L (39-117); Anion Gap 12 (12-20); Aspartate Amino Transferase 25 U/L (5-31); Blood Urea Nitrogen 13 mg/dL (9-16); Calcium 8.9 mg/dL (8.4-10.2); Carbon Dioxide 27 mmol/L (22-29); Chloride 106 mmol/L (96-108); Creatinine Clr Calc Pharmacy 179.5; Estimated Glomerular Filt Rate > 60; Lipase 22 U/L (8-78); Potassium 4.1 mmol/L (3.3-5.1); Sodium 141 mmol/L (135-145); Total Protein 7.7 g/dL (6.5-8.0)
--- OUTSIDE RECORDS SUMMARY | 2025-02-16 23:55 | XMS_ITS | Clinical Summary ---
Author Organization [facility] Address [address] [place] [address] Phone Care Team Providers Care Director Of The [employer] [facility] Name Role Phone Kel Escalante MD Primary Care Provider [phone] [phone] Allergies Active Allergy Reactions Criticality Noted Date [...] PPO UNITED PPO UNITED PPO UNITED PPO [id number] Member Subscriber Plan / Payer (Ef fective 2022-Present) Name:Arianna Villareal Relation to Subscriber:Self Name:Arianna Villareal Payer ID:Not on file Group ID:Not on file Type:Indemnity Address: [address] Care Teams Director Of The [facility] [facility] Relationship Specialty Start Date End Date Kel Escalante MD [address] [place] [address] [place] [address] PCP - General Internal Medicine 11/18/22 Additional Source Comments The information contained in this document represents components of the legal health record. It is not the complete legal health record.[facility]
--- OUTSIDE RECORDS SUMMARY | 2025-02-16 23:55 | XMS_ITS | Encounter Summary ---
Author Organization [facility] Address [address] [place] [address] Phone Care Team Providers Care Hull Inspector Name Role Phone Kel Escalante MD Primary Care Provider [phone] [phone] Encounter Details Date Type Department Care Team (Late st Contact Info) Description 11/18/2022 Procedure Pass [facility], Ct Scan - [address] [address] Social History Tobacco Use Types Packs/Day Years [...] on filedocumented in this encounter Care Teams Hull Inspector Relationship Specialty Start Date End Date Kel Escalante MD [address] [place] [address] [place] [id number] PCP - General Internal Medicine 11/18/22 documented as of this encounter Additional Source Comments The information contained in this document represents components of the legal health record. It is not the complete legal health record.[facility]
--- NOTE | 2025-02-17 00:10 | PC.NURSE ---
20 g IV placed in the left AC
[2025-02-17 01:58] VITALS: BP 106/63; PULSE 80; RESP 18; TEMP 36.4; O2SAT 95
[2025-02-17] MEDS: Sucralfate Oral Suspension 1 GM/10 ML ORAL.SUSP PO (02:02)
[2025-02-17] MEDS: iohexoL 350 MG/ML 100 ML INFUS..BTL IV (02:59)
[2025-02-17 04:13] VITALS: BP 97/64; PULSE 77; RESP 16; TEMP 36.6; O2SAT 95
[2025-02-17 06:22] VITALS: BP 102/59; PULSE 86; RESP 18; TEMP 36.3; O2SAT 95
[2025-02-17 06:29] VITALS: BP 102/59; PULSE 86; RESP 18; TEMP 36.3; O2SAT 95
== END 2025-02-17 06:31 | disposition home or self-care (01) ==
PROVIDERS: Emergency Provider Emergency Medicine; PCP Internal Medicine
DX: R10.13 Epigastric pain (principal); R11.2 Nausea with vomiting, unspecified; R42 Dizziness and giddiness; R14.0 Abdominal distension (gaseous); Z79.899 Other long term (current) drug therapy
CPT/HCPCS: 36415; 74177; 80053; 83690; 84702; 85025; 86140; 96365; 96366; 96375; 99284; 99285; J0131; J1200; J1308; J2765; Q9967

== ENCOUNTER 2025-03-23 08:27 | Outpatient (AMB) | payer OTHER, SELFPAY ==
[2025-03-23 18:42] VITALS: BMI 49.7
--- NOTE | 2025-03-23 18:42 | MHC.OFFVISWM ---
VS Expanded 03/23/25 18:42 Height 5 ft 5 in Weight 298 lb 8 oz BMI 49.7 Body Fat % 65.3 Body Fat Mass 195.1 Fat Free Mass 103.6 Visceral Fat Rating 29 Body Water % 23.8 Body Water Mass 71.1 Basal Metabolic Rate/Score 1,384 Intake Visit Reasons: TV Pre Op LSG 04/03/25 Allergies cortisone (CORTISONE) Allergy (Unknown, Verified 03/23/25 18:49) Anaphylaxis,hives,chest pain succinylcholine Adverse Reaction (Severe, Verified 03/23/25 18:49) Unresponsive Medication List - Last Reconciled 03/23/25 by Alexey Puri MD azelastine intranasal fexofenadine-pseudoephedrine 180-240 mg ER (Tania-D 24 Hour) 1 tab PO QAM naproxen 500 mg PO BID PRN nystatin 1 appl topical BID omeprazole 40 mg PO DAILY ondansetron 4 mg PO Q12H pantoprazole 40 mg PO DAILY pantoprazole 40 mg PO DAILY polyethylene glycol 3350 17 grams PO DAILY sucralfate 1 g PO TID PRN sucralfate 10 mL PO BID sumatriptan succinate 50 mg PO Q2-4H PRN tirzepatide (weight loss) (Zepbound) 10 mg (0.5 mL) subcut QWEEK vitamin A palmitate 10,000 units PO DAILY HPI HPI TV Pre Op LSG 04/03/25: Details: Start time: 2.30pm, End time: 3pm ?I spent 25 minutes speaking with the patient on the phone plus an additional 5 minutes reviewing and updating records for a total of 30 minutes HPI Comments Details: Overall weight loss: 28.8lbs, or 8.8% TBWL Is doing 4 8oz Muscle milk shakes and one whole bottle muscle milk shakes [facility] Medical History (Updated 02/22/25 @ 20:07 by Alexey Puri MD) Esophagitis determined by biopsy BMI 50.0-59.9, adult Back pain Pseudocholinesterase deficiency Obstructive sleep apnea Allergic rhinitis Morbid obesity with BMI of 50.0-59.9, adult Chronic tonsillar hypertrophy Impaired fasting glucose Pre-diabetes Adjustment disorder, unspecified PCOS (polycystic ovarian syndrome) GERD (gastroesophageal reflux disease) Morbid obesity Surgical History S/P tonsillectomy (~12/11/21) History of incision and drainage Family History Father Bipolar 1 disorder COPD (chronic obstructive pulmonary disease) Psoriasis Eczema Depression Chronic mental illness Mother Hypothyroidism Rheumatoid arthritis Brother In good health Paternal Aunt Breast cancer Paternal Uncle Pancreatic cancer Other Mental health disorder Social History Housing: House Alcohol intake: current Alcohol intake frequency: holidays/special occasions only Patient Tobacco Use Status: Never used Tobacco Tobacco use type: Cigarette e-Cigarette/Vaping Use: Never Used Second Hand Smoke Exposure: No service: No Current occupational status: employed Cognitive needs: No Hearing needs: No Vision needs: Yes Female Reproductive History Menstrual Age of Menarche: 11 Telehealth Telehealth Telehealth Platform: Telephone Location of provider rendering services: practice address Location of patient: address on file Patient Identification confirmed using: Name, : Yes Telehealth method: voice only Patient verbally consented to treatment: Yes Patient verbally consented to billing insurance company: Yes Patient informed of any privacy concerns related to visit: Yes Minutes spent on Phone/Video with Pt.: 30 Assessment & Plan Assessment & Plan (1) Morbid obesity: Code(s): E66.01 - Morbid (severe) obesity due to excess calories Category: Medical Plan: 1.? Plan for lap sleeve gastrectomy including upper GI endoscopy. All tests has been completed and reviewed and the patient is cleared for the surgery. ?If diaphragmatic or ventral hernias are present at time of surgery, these will be repaired laparoscopically as well. The surgery does not replace the need to change your lifestlyle which is the cause of the obesity problem. The surgery provides the motivation to try again to change your lifestyle, it reduces the appetite and make the transition to a better lifestyle easier and doubles the amount of weight you would lose compared to doing the lifestyle change without the surgery. You will need to be on a liquid diet with protein shakes for 2 weeks before surgery to maximize weight loss and boost your nutritional status to recover better from surgery and also for the first two weeks after surgery to let the stomach heal before we introduce other foods. After the first 2 weeks we will introduce protein bars and soft foods like scrambled eggs, cottage cheese and yogurt and after the 6th week will introduce meat, fish and cooked vegetables in small amounts. Over time you should be able to eat everything in small amounts. Side effects like nausea, vomiting, heartburn or abdominal pain are not common in the practice unless you are not following in the practice. This operation requires lifetime commitment to following in our practice and communication with me. You will much less weight and experience side effects if you don?t communicate or not following in the practice. Complications are rare and in our practice is about 1/10 of the national average. However, you can develop bleeding that may require transfusion (hasn?t happened for year in the practice), you may from complications (we did not have any deaths in the practice) and infections. Infections are usually a result of breakdown in communication or not understanding or following directions correctly. They are difficult to treat, they can happen during the first 6 weeks, they may require to be in the hospital for weeks or even months, not being able to eat by mouth and you may have drains and surgeries to try and correct the issue. Other risks and complications include possible conversion to an open procedure, leaks, small bowel obstruction, blood clots, cardiac, or pulmonary complications, as care home complications such as ulcers, insufficient weight loss and vitamin deficiencies. So far she has proven to be an excellent communicator and very compliant with all our directions accomplishing a great weight loss. I believe that she is an excellent candidate and she is ready. 2. Preop prescriptions were provided and explained the purpose of each one. Need to be purchased preop. Start Pantoprazole now as you get it from the pharmacy, 1 pill per day. Sucralfate and Zofran are for after surgery as needed. 3. Bowel prep: please do 7 packets ?of Miralax mixing each one with a an 8oz glass of water, crystal light, gatorade zero, or propel ?on 04/01/25 and the same amount on 04/02/25. The Miralax you begin with one packet at a time in 8oz water or crystal light, gatorade zero, or propel ?as early in the day as you can and you do them back to back until you finish them. Continue the protein shakes during? the bowel prep. 4. Needs to purchase 1oz medicine cups . 5. Needs to purchase Children's liquid Tylenol for postop pain control. 6. She needs to stop the Zepbound as of Wednesday03/26/25 and stop the Meloxicam as of today 03/23/25. Avoid aspirin, motrin, Advil, Aleve, Ibuprofen, Naproxyn. Tylenol is OK. 7. She needs to purchase the Celebrate multivitamins from the hospital's gift shop. 8. Will do basic preop blood work-up any day between Wednesday03/26/25 and Wednesday03/30/25 fasting for 12 hours and is scheduled to see the Anesthesiologist prior to the day of surgery. 9. Importance of adherence to postop follow-up and recommendations was underscored and she understands that. 10. Continue to avoid food and bars and continue with 4 ?8oz Muscle mil protein shakes at 8am-10am, 11am-1pm, 2pm-4pm, 5pm-7pm and one WHOLE BOTTLE Muscle Milk protein shake at 8pm-10pm 11. No soups, broths or V8 12. The patient's?medical?history has been reviewed and they are considered low risk for post op DVT and therefore DVT prophylaxis is not considered necessary. Travel after surgery was reviewed. The patient has not disclosed any travel plans during the first 30 days after surgery and they have been advised that within the first 30 days after surgery any bus, plane, train or car travel over 2 hours in duration is contraindicated due to the possibility of developing blood clots from immobility. Any travel, needs to include periods of ambulation of 10 minutes in duration every 2 hours.? Patient was instructed to discuss any plans for travel during this period with their bariatric surgeon.? 13. Please take at the day of surgery the following medications: NONE 14. Stop any control pills and don't use them for one month after surgery 15. Absolutely no smoking or vaping, or marijuana until the surgery and for at least the first 4 weeks. Only nicotine patches are allowed. 16. Send me weight measurements on Wednesday03/28/25 and then on Wednesday04/03/25, the day of surgery before you go to the hospital. 17. Avoid any steroids by mouth for any reason. Let me know if someone prescribes them to you 18. These instructions supersede anything else you read in the handbook, anything you watched in videos or classes or you were told by any other provider. If there is any conflict, you follow the above instructions and nothing else. Orders: Orders Complete Blood Count Auto Diff Today E66.01 - Morbid (severe) obesity due to excess calories C Reactive Protein Today E66.01 - Morbid (severe) obesity due to excess calories Comprehensive Met. Panel Today E66.01 - Morbid (severe) obesity due to excess calories Type and Screen Today E66.01 - Morbid (severe) obesity due to excess calories Insulin Today E66.01 - Morbid (severe) obesity due to excess calories Lipid Panel Today E66.01 - Morbid (severe) obesity due to excess calories Hemoglobin A1c Today E66.01 - Morbid (severe) obesity due to excess calories Partial Thromboplastin Time Today E66.01 - Morbid (severe) obesity due to excess calories Prothrombin Time INR Today E66.01 - Morbid (severe) obesity due to excess calories TSH reflex Free T4 Today E66.01 - Morbid (severe) obesity due to excess calories Medications: New pantoprazole 40 mg PO DAILY 90 tabs 0RF K21.9 - Gastro-esophageal reflux disease without esophagitis sucralfate 10 mL PO BID 600 mL 2RF K21.9 - Gastro-esophageal reflux disease without esophagitis ondansetron 4 mg PO Q12H 20 tabs 0RF nausea and vomiting R11.0 - Nausea polyethylene glycol 3350 17 grams PO DAILY 238 grams 0RF Z01.818 - Encounter for other preprocedural examination
== END 2025-03-23 19:03 | disposition home or self-care (01) ==
LOC: HO.HBS 08:27
PROVIDERS: PCP Internal Medicine; Visit Provider Surgery
DX: E66.01 Morbid (severe) obesity due to excess calories (principal)
CPT/HCPCS: 99214

== ENCOUNTER 2025-03-28 06:44 | Outpatient (REF) | payer OTHER, SELFPAY ==
--- OUTSIDE RECORDS SUMMARY | 2025-03-28 06:47 | XMS_ITS | Clinical Summary ---
Author Organization [facility] Address [address] [place] [address] Phone Care Team Providers Care It Portfolio Manager Name Role Phone Kel Escalante MD Primary Care Provider [phone] [phone] Allergies Active Allergy Reactions Criticality Noted Date [...] you interested in more education? Not on derloy e 11/18/2022 Are you concerned about learning? [...] PPO UNITED PPO UNITED PPO [id number] Subscriber Plan / Payer (Ef fective 2022-Present) Name:Arianna Villareal Relation to Subscriber:Self Name:Arianna Villareal Payer ID:Not on file Group ID:Not on file Type:Indemnity Address: [address] Care Teams It Portfolio Manager Relationship Specialty Start Date End Date Kel Escalante MD [address] [place] [address] [place] [address] PCP - General Internal Medicine 11/18/22 Additional Source Comments The information contained in this document represents components of the legal health record. It is not the complete legal health record.[facility]
--- OUTSIDE RECORDS SUMMARY | 2025-03-28 06:47 | XMS_ITS | Patient Health Record ---
[facility] Address [address] [place] [address] Care Team Providers Care Bolt Machine Operator Name Role Phone Ingrid HAWKINS, Rachael Leavitt Primary Care Provider Wilfrid Smith Unavailable [phone] Allergies Allergen (clinical drug ingredient) Drug/Non Drug [...] Insured Coverage Start Date Coverage End Date [facility] [address] [place] [address] [phone] [id number] Arianna Siegel Self - patient is the insured Medical (General) History Medical History History ICD Code Psoriasis/eczema polycystic ovarian syndrome sleep apnea Plantar Fasciitis Calcaneal spur Bursitis Myositis
--- OUTSIDE RECORDS SUMMARY | 2025-03-28 06:47 | XMS_ITS | Encounter Summary ---
Author Organization [facility] Address [address] [place] [address] Phone Care Team Providers Care Cellular Plastics Cutter Name Role Phone Kel Escalante MD Primary Care Provider [phone] [phone] Encounter Details Date Type Department Care Team (Late st Contact Info) Description 11/18/2022 Procedure Pass [facility], Ct Scan - [address] [address] Social History Tobacco Use Types Packs/Day Years [...] on filedocumented in this encounter Care Teams Cellular Plastics Cutter Relationship Specialty Start Date End Date Kel Escalante MD [address] [place] [address] [address] [facility] [place] [address] PCP - General Internal Medicine 8/9/23 documented as of this encounter Additional Source Comments The information contained in this document represents components of the legal health record. It is not the complete legal health record.[facility]
[2025-03-28 07:19] LABS: Hematocrit 44.4 % (37.0-47.0); Hemoglobin 14.6 g/dl (12.0-16.0); Imm Gran Abs Auto 0.03 X10*3/uL (0.00-0.03); Imm Gran Pct Auto 0.5 % (0.0-0.4); Lymphocytes Absolute Auto 2.8 X10*3/uL (1.2-4.9); MANUAL DIFF FLAG NO; Mean Corpuscular HGB Conc 32.9 g/dl (31.0-35.0); Mean Corpuscular Hemoglobin 27.5 pg (27.0-33.0); Mean Corpuscular Volume 83.6 fL (80.0-98.0); NRBC Abs Auto 0.000 X10*3/uL (0.0-0.012); NRBC Pct Auto 0.0 /100WBC (0.0-0.2); Platelet Count 304 X10*3/uL (160-400); Red Blood Count 5.31 X10*6/uL (4.20-5.50); White Blood Count 6.6 X10*3/uL (4.8-10.8)
[2025-03-28 07:25] LABS: INTERNATIONAL NORM RATIO 1.0 (0.9-1.1); Prothrombin Time 12.8 SEC (11.2-13.5)
[2025-03-28 07:27] LABS: Partial Thromboplastin Time 33.9 SEC (26.7-34.1)
[2025-03-28 07:49] LABS: Alanine Aminotransferase 34 U/L (0-31); Albumin Level 4.7 g/dL (3.5-5.0); Alkaline Phosphatase 58 U/L (39-117); Anion Gap 13 (12-20); Aspartate Amino Transferase 26 U/L (5-31); Blood Urea Nitrogen 13 mg/dL (9-16); Calcium 9.5 mg/dL (8.4-10.2); Carbon Dioxide 28 mmol/L (22-29); Chloride 102 mmol/L (96-108); Cholesterol 139 mg/dL (<200); Estimated Glomerular Filt Rate > 60; HDL Cholesterol 27 mg/dL (>40); Potassium 4.5 mmol/L (3.3-5.1); Sodium 138 mmol/L (135-145); Total Protein 7.5 g/dL (6.5-8.0); Triglycerides 103 mg/dL (<150)
== END 2025-03-28 06:45 | disposition home or self-care (01) ==
LOC: HO.LAB 06:44
PROVIDERS: PCP Internal Medicine; Visit Provider Surgery
DX: E66.01 Morbid (severe) obesity due to excess calories (principal)
CPT/HCPCS: 36415; 80053; 80061; 83036; 83525; 84443; 85025; 85610; 85730; 86140

== ENCOUNTER 2025-04-03 06:07 | Inpatient (IN) | payer OTHER, SELFPAY ==
[2025-03-28 09:43] VITALS: BMI 48.8
--- NOTE | 2025-03-29 12:17 | P.CONAN_ITS ---
Documented by User: Arianna Jean NP 03/29/25 12:18 HPI - Anesthesia Eval Consult details Narrative: 34yo F for Gastrectomy Sleeve,EGD,possible Diaphragmatic Hernia,possible Ventral Hernia,possible Open BMI 48.8 PMFSH Active Problems Active Problems: All Active Problems Peripheral vascular disease (Acute) Tinea corporis (Acute) Acute bacterial sinusitis (Acute) Vitamin A deficiency (Acute) Sinus congestion (Acute) Urinary incontinence (Acute) Oligomenorrhea (Acute) Annual physical exam (Acute) Migraine (Acute) Insomnia (Acute) Vitamin B12 deficiency (Acute) Vitamin D deficiency (Acute) Esophagitis determined by biopsy (Acute) BMI 50.0-59.9, adult (Acute) Back pain (Acute) Pseudocholinesterase deficiency (Acute) Allergic rhinitis (Acute) Impaired fasting glucose (Acute) PCOS (polycystic ovarian syndrome) (Acute) GERD (gastroesophageal reflux disease) (Acute) Morbid obesity (Acute) Past Medical History Medical History Obstructive sleep apnea Sleep apnea Esophagitis determined by biopsy BMI 50.0-59.9, adult Back pain Pseudocholinesterase deficiency Allergic rhinitis Morbid obesity with BMI of 50.0-59.9, adult Chronic tonsillar hypertrophy Impaired fasting glucose Pre-diabetes Adjustment disorder, unspecified PCOS (polycystic ovarian syndrome) GERD (gastroesophageal reflux disease) Morbid obesity Family History Family History Father Bipolar 1 disorder COPD (chronic obstructive pulmonary disease) Psoriasis Eczema Depression Chronic mental illness Mother Hypothyroidism Rheumatoid arthritis Brother In good health Paternal Aunt Breast cancer Paternal Uncle Pancreatic cancer Other Mental health disorder Surgical History Surgical History History of esophagogastroduodenoscopy (EGD) S/P tonsillectomy (~12/11/21) History of incision and drainage History of Problems with Anesthesia: No Social History Social History Housing: House Alcohol intake: current Alcohol intake frequency: holidays/special occasions only Patient Tobacco Use Status: Never used Tobacco Tobacco use type: Cigarette e-Cigarette/Vaping Use: Never Used Second Hand Smoke Exposure: No Use of substances other than those prescribed or required for medical reasons: No Have you been hit, kicked, punched, or otherwise hurt by someone within the past year? If so, by whom?: No Are you DNR?: No Advance Directives: No Advance Directives Information Provided: No Advance Directives on File: No Patient : No : No service: No Current occupational status: employed Cognitive needs: No Hearing needs: No Vision needs: Yes Meds Allergies Allergy/AdvReac Type Severity Reaction Status Date / Time cortisone (CORTISONE) Allergy Unknown Anaphylaxis,hives,chest Verified 03/23/25 18:49 pain succinylcholine AdvReac Severe Unresponsiv Verified 03/23/25 18:49 e Home Medications ?Medication ?Instructions ?Recorded ?Confirmed ?Last Taken ?Type fexofenadine-pseudoephedrine ER 1 tab PO QAM PRN Aller gy Symptoms 06/14/23 03/28/25 03/04/25 History 180 mg-240 mg tablet,ext.release 24 hr (Tania-D 24 Hour) nystatin 100,000 unit/gram topical 1 appl topical BID PRN Skin 03/28/25 03/28/25 03/04/25 History powder Irritation sumatriptan succinate 50 mg tablet 50 mg PO DAILY MRX1 PRN migraine 04/03/25 04/03/25 03/04/25 History headache tirzepatide (weight loss) 7.5 10 mg subcut MO 04/03/25 04/03/25 03/26/25 History mg/0.5 mL subcutaneous pen injector (Zepbound) Exam Height,Weight and Vital Signs: Height 5 ft 5 in Weight 133.084 kg Pertinent Lab Results Pertinent Lab Results: Laboratory Tests 03/28/25 06:54 Blood Type O Negative Antibody Screen NEGATIVE Laboratory Tests 03/28/25 06:48 WBC 6.6 Hgb 14.6 Hct 44.4 Plt Count 304 Sodium 138 Potassium 4.5 Chloride 102 Carbon Dioxide 28 BUN 13 Creatinine 0.56 Narrative Narrative: EKG 07/2024 Vent. Rate : 73 BPM Atrial Rate : 73 BPM P-R Int : 162 ms QRS Dur : 94 ms QT Int : 400 ms P-R-T Axes : 58 35 22 degrees QTcB Int : 440 ms Normal sinus rhythm Normal ECG When compared with ECG of 04-Sep-2020 09:39, No significant change was found Assessment and Plan Assessment Anesthesia Assessment: Chart Reviewed Final Anesthetic Review History of Problems with Anesthesia: No Documented by User: Michelle Maldonado MD 04/03/25 08:53 [facility] Past Medical History Medical History Obstructive sleep apnea Sleep apnea Esophagitis determined by biopsy BMI 50.0-59.9, adult Back pain Pseudocholinesterase deficiency Allergic rhinitis Morbid obesity with BMI of 50.0-59.9, adult Chronic tonsillar hypertrophy Impaired fasting glucose Pre-diabetes Adjustment disorder, unspecified PCOS (polycystic ovarian syndrome) GERD (gastroesophageal reflux disease) Morbid obesity Family History Family History Father Bipolar 1 disorder COPD (chronic obstructive pulmonary disease) Psoriasis Eczema Depression Chronic mental illness Mother Hypothyroidism Rheumatoid arthritis Brother In good health Paternal Aunt Breast cancer Paternal Uncle Pancreatic cancer Other Mental health disorder Family history of problems with anesthesia: No Surgical History Surgical History History of esophagogastroduodenoscopy (EGD) S/P tonsillectomy (~12/11/21) History of incision and drainage Social History Social History Housing: House Alcohol intake: current Alcohol intake frequency: holidays/special occasions only Patient Tobacco Use Status: Never used Tobacco Tobacco use type: Cigarette e-Cigarette/Vaping Use: Never Used Second Hand Smoke Exposure: No Use of substances other than those prescribed or required for medical reasons: No Have you been hit, kicked, punched, or otherwise hurt by someone within the past year? If so, by whom?: No Are you DNR?: No Advance Directives: No Advance Directives Information Provided: No Advance Directives on File: No Patient : No : No service: No Current occupational status: employed Cognitive needs: No Hearing needs: No Vision needs: Yes Meds Allergies Allergy/AdvReac Type Severity Reaction Status Date / Time cortisone (CORTISONE) Allergy Unknown Anaphylaxis,hives,chest Verified 03/23/25 18:49 pain succinylcholine AdvReac Severe Unresponsiv Verified 03/23/25 18:49 e Home Medications ?Medication ?Instructions ?Recorded ?Confirmed ?Last Taken ?Type fexofenadine-pseudoephedrine ER 1 tab PO QAM PRN Aller gy Symptoms 06/14/23 03/28/25 03/04/25 History 180 mg-240 mg tablet,ext.release 24 hr (Tania-D 24 Hour) nystatin 100,000 unit/gram topical 1 appl topical BID PRN Skin 03/28/25 03/28/25 03/04/25 History powder Irritation sumatriptan succinate 50 mg tablet 50 mg PO DAILY MRX1 PRN migraine 04/03/25 04/03/25 03/04/25 History headache tirzepatide (weight loss) 7.5 10 mg subcut MO 04/03/25 04/03/25 03/26/25 History mg/0.5 mL subcutaneous pen injector (Zepbound) Exam Airway Mallampati Class: II TM Dist: >3cm Neck ROM: Full Heart: rrr Lungs: cta Assessment and Plan Assessment Anesthesia Assessment: Anesthesia Plan Discussed Final Anesthetic Review Family History of Problems with Anesthesia: No NPO: Yes ASA Class: III Final Preanesthetic Review: No Changes in Pt Med Stat, Meds/Allgs Chart Reviewed, Consent Obtained/Reviewed and Anes Risks/Benef Reviewed Patient Risk: Intermediate Procedure Risk: Intermediate Anesthetic Plan Anesthetic Plan: GA and Agree w/ Assess. and Plan Disposition: Standard PACU
[2025-04-03] VITALS (14 sets, daily range): BP systolic 100–133; BP diastolic 53–74; PULSE 72–90; RESP 16–18; TEMP 36.1–37; O2SAT 91–96; BMI 48.5
[2025-04-03 06:25] LABS: UPreg QC Valid YES
--- OUTSIDE RECORDS SUMMARY | 2025-04-03 06:33 | XMS_ITS | Clinical Summary ---
Author Organization [facility] Address [address] [place] [address] Phone Care Team Providers Care Director Of Technology Name Role Phone Kel Escalante MD Primary Care Provider [phone] Allergies Active Allergy Reactions Criticality Noted Date [...] PPO UNITED PPO UNITED PPO UNITED [id number] Member Subscriber Plan / Payer (Ef fective 2022-Present) Name:Arianna Villareal Relation to Subscriber:Self Name:Arianna Villareal Payer ID:Not on file Group ID:Not on file Type:Indemnity Address: [address] Care Teams Director Of Technology Relationship Specialty Start Date End Date Kel Escalante MD [address] [place] [address] [place] [address] PCP - General Internal Medicine 11/18/22 Additional Source Comments The information contained in this document represents components of the legal health record. It is not the complete legal health record.[facility]
--- OUTSIDE RECORDS SUMMARY | 2025-04-03 06:34 | XMS_ITS | Encounter Summary ---
Author Organization [facility] Address [address] [place] [phone] Phone Care Team Providers Care Petroleum Refining Equipment Operator Name Role Phone Kel Escalante MD Primary Care Provider [phone] Encounter Details Date Type Department Care Team (Late st Contact Info) Description 11/18/2022 Procedure [address] [facility], Ct Scan - [address] [address] Social History Tobacco Use Types Packs/Day Years [...] on filedocumented in this encounter Care Teams Petroleum Refining Equipment Operator Relationship Specialty Start Date End Date Kel Escalante MD [address] [place] [address] Dr [facility] [place] [place] [place] [address] PCP - General Internal Medicine 8/9/23 documented as of this encounter Additional Source Comments The information contained in this document represents components of the legal health record. It is not the complete legal health record.[facility]
--- OUTSIDE RECORDS SUMMARY | 2025-04-03 06:34 | XMS_ITS | Patient Health Record ---
[facility] Address [address] [place] [address] Care Team Providers Care Brick Washer Name Role Phone Ingrid HAWKINS, Rachael Leavitt Primary Care Provider Wilfrid Smith Unavailable [phone] Allergies Allergen (clinical drug ingredient) Drug/Non Drug [...] Insured Coverage Start Date Coverage End Date [facility] [address] [place] [address] [phone] [id number] Arianna Siegel Self - patient is the insured Medical (General) History Medical History History ICD Code Psoriasis/eczema polycystic ovarian syndrome sleep apnea Plantar Fasciitis Calcaneal spur Bursitis Myositis
[2025-04-03] MEDS: Aprepitant 32 MG/4.4 ML VIAL IVPUSH (06:39)
[2025-04-03] MEDS: Lactated Ringers 1,000 ML 999 ML IV (06:39)
--- NOTE | 2025-04-03 07:35 | MHC.SHP ---
Pre-Procedural Eval Section A - 24 Hr Update-Section A only Date of Service: 04/03/25 The patient is an INPATIENT: Yes The patient has been examined within 24 hours of the surgical procedure. The History & Physical has been completed within 30 days and I have reviewed it.: Yes Section B - Complete if H&P > 30 days Chief Complaint: Morbid Obesity Relevant Family History (Specify if Yes): No Relevant Social History: None Present Medications: None Medical History: No relevant PMH History of Previous Operations: No relevant previous surgery Allergies: Allergies Allergy/AdvReac Type Severity Reaction Status Date / Time cortisone (CORTISONE) Allergy Unknown Anaphylaxis,hives,chest Verified 03/23/25 18:49 pain succinylcholine AdvReac Severe Unresponsiv Verified 03/23/25 18:49 e Review of Systems Sugical H&P ROS: Negative: Constitution, Cardiovascular, Respiratory, Neurological, Psychiatric, Hem-Onc, Allergic/Immunologic, Gastrointestinal, Genitourinary, Musculoskeletal, Integumentary, Endocrine and Eyes/Ears/Nose/Throat Exam Surgical H&P Exam: Normal: HEENT, Normal: Heart, Normal: Lungs, Normal: Extremities, Normal: Abdomen, Normal: Skin and Normal: Neurological Plan Diagnosis/Plan: Unchanged I have reviewed the history and physical and performed a pertinent physical examination on my patient. No changes have occurred unless specified. Time Spent With Patient Time: Total time managing care of this patient today ____ minutes.
--- NOTE | 2025-04-03 07:36 | P.BOP_ITS ---
Brief Operative Note Date of Service: 04/03/25 Pre-op diagnosis: Morbid obesity with comorbidities (see below) Post-op diagnosis: same Procedure: INITIAL PATIENT BMI ON PRESENTATION AT OUR OFFICE: 54.5 kg/m2 LAST BMI BEFORE SURGERY: 48.6 kg/m2 COMORBIDITIES: sleep apnea, GERD, PCOS, back pain ?The patient presented to the Weight Management Program with significant obesity that was negatively impacting the patient's comorbidities as listed above.? The program is a phased program with a special focus on preoperative medical weight management to promote substantial weight loss and prepare the patients for the second phase of the program: bariatric surgery. The patient participated in an intensive weekly lifestyle ?intervention and exercise program during which the patient ?has lost between the initial office visit and the last preoperative visit 35.8 lbs, or 10.93% of initial actual body weight. It was deemed appropriate for the patient to now have bariatric surgery. In light of the current Covid-19 pandemic and the well documented strong association of obesity and increased risk of worse outcomes if infected with Covid-19 (REFERENCES: https://pubmed.ncbi.nlm.nih.gov/15447847/ ,? https://pubm ed.ncbi.nlm.nih.gov/63568557/ ), any delay in undergoing bariatric surgery may lead to the patient's worsening health condition and increased?risk of more severe Covid-19 disease if infected. In addition a recent?study from [facility] published in ERAN Surgery on 04/07/2021 (file:///C:/[email or web address]_[email or web address]) found that, among patients with obesity, substantial weight loss achieved with surgery was associated with improved outcomes of COVID-19 infection. The findings suggest that obesity can be a modifiable risk factor for the severity of COVID-19 infection. In addition, the patient met the BMI-criteria for bariatric surgery based on the BMI on initial presentation. The patient should not be penalized for achieving such weight loss because ?it is not sustainable long-term without surgical intervention and it was achieved in preparation for bariatric surgery ?under my direction and based on my published research ([email or web address]/C:/[email or web address]).pdf and? https://www.soard.org/article/F8799-7331(35)15842-X/pdf ) ?that a 10% preoperative weight loss improves long-term weight loss after surgery and reduces perioperative complications.? Insurance carriers such as [facility] have endorsed my recommendations ?and have included in their policies criteria to include a 10% preoperative weight loss requirement. PROCEDURE: Esophago-gastroscopy, laparoscopic sleeve gastrectomy and laparoscopic gastropexy INDICATIONS: This is a 34 year-old female who was electively scheduled for laparoscopic, possibly open sleeve gastrectomy. The risks and complications of the procedure were discussed with the patient in advance, particularly the possibility of ; pulmonary embolism; staple line leak; bleeding; GERD; cardiac, pulmonary, or renal complications; as well as long-term problems such as insufficient weight loss, vitamin deficiency, strictures, or ulcers. The patient understood all the risks, and was in agreement to proceed with surgery. DESCRIPTION OF PROCEDURE: After informed consent was obtained from the patient, the patient was given preoperative antibiotics, and was transferred to the operating room. After successful induction of general anesthesia, pneumatic compression devices were placed on both lower extremities. An upper endoscopy was performed next. The oropharynx and esophagus appeared to be within normal limits. There was a diaphragmatic hernia present of moderate size consistent with the findings of the preoperative upper GI. The stomach was entered. Then after all fluid and air were suctioned and the stomach was fully decompressed, the scope was withdrawn and secured in the mid esophagus. The patient was then prepped and draped in the usual sterile manner, and abdominal access was established at the right upper quadrant with the Radha technique. A 12 mm blunt port was inserted, and the abdomen was insufflated with CO2 to a pressure of 15 mmHg. Under direct visualization, additional ports were placed, specifically two 5 mm Versi-step ports to the left upper quadrant, and a 5 mm Versi-Step port to the right upper quadrant. 1% lidocaine plain was used to infiltrate all port sites as well as all fascia defects. Following that, the patient was placed in a steep reverse Trendelenburg position. An additional 5 mm port was placed to the right flank for the Mediflex retractor that was used to retract the left lobe of the liver. The gastro-esophageal fat pad was opened with the ultrasonic device (Thunderbeat, Olympus) and the anterior esophagus and hiatus were exposed. The angle of His was opened with the ultrasonic device the fundus of the stomach from any diaphragmatic and splenic attachments. I then opened the gastrocolic ligament between the transverse colon and the greater curvature of the stomach with the ultrasonic device to enter the lesser sac and facilitate the ligation of the short gastric vessels. I started at a mid-point along the greater curvature and using the Thunderbeat, all short gastric vessels were divided all the way to the angle of His until the left george was completely dissected at its entirety. I then divided the gastro-colic ligament distally to a distance of about 3-4 cm proximal to the pylorus. The stomach was then divided transversely with four Endo ADOLFO-45 purple and two ADOLFO-60 articulating purple loads using the Kiddie Kist stapler and loads. Every effort was made that the gastric sleeve had a tubular shape and an even caliber throughout. Once the sleeve resection was completed, the staple line of the gastric sleeve was reinforced with Hemoclips. The resected stomach was retrieved without difficulty from the Radha port. A gastropexy was then performed in order to prevent postoperative GERD and partial gastric volvulus. Several interrupted 2.0 Surgidac sutures were placed between the sleeve's staple line and the previously divided greater omentum and gastro-colic ligament using the Endo-Stitch device. ?An upper endoscopy was performed. There was no narrowing at the GE junction. The scope was easily advanced all the way to the pylorus which was clearly visu alized. There was no narrowing anywhere and the sleeve's caliber was even throughout. The sleeve's staple line was inspected and there was no evidence of ischemia, bleeding or dehiscence. At that point the gastroscope was withdrawn from the patient?s mouth while we were decompressing the bowel and the stomach from any remaining air. I looked into the lesser sac to see how the sleeve was situating and it was situating well. There was no bleeding from the staple line, spleen, or short gastric vessels. The Mediflex retractor was removed, and the undersurface of the liver was inspected and there was no bleeding. The patient was placed in supine position. I closed the fascial defect of the 12 mm port site with a figure of eight #1 Polysorb suture. Then 100 cc 0.25 % Marcaine plain with 10 mg of Dexamethasone were used to infiltrate the fascial closure as well as all skin incisions. At this point, the abdomen was deflated, all ports were removed under direct vision, and no bleeding was noted from any of the port sites. The skin incisions were irrigated with saline and were closed with 4-0 absorbable monofilament sutures. Steri-Strips and OpSites were used to cover all incisions. The patient was extubated and was transferred in stable condition to the recovery room for further care. I was present and performed all ochoa parts of the procedure. Fernando Eitanbrice was the first aid teacher. There were no residents to assist with this case. Isaac Puri MD, PhD, FACS Surgeon: Alexey Puri MD Anesthesia: GETA, local and other (TAP block) Was an Threat Monitoring Analyst used for this Procedure?: No Threat Monitoring Analyst: Argelia Manzano Estimated blood loss (mL): 10 IV fluids (mL): 2,500 Urine output (mL): 0 (No [place] to record output) Pathology: other (1) Stomach, 2) Gastroesophageal fat pad) Condition: stable Disposition: PACU
--- NOTE | 2025-04-03 07:39 | P.PNGS_ITS ---
Subjective Subjective Date of Service: 04/04/25 Interval history: Feels well. Mild incisional pain. She is tolerating phase 1 bariatric diet Physical Exam 2 Vital Signs: Vital Signs: Last Vital Signs Temp 97.5 F 04/03/25 06:19 Pulse 77 04/03/25 06:19 Resp 16 04/03/25 06:19 BP 120/74 04/03/25 06:19 Pulse Ox 96 04/03/25 06:19 O2 Del Method Room Air 04/03/25 06:19 BMI result Body Mass Index 48.5 GI: Inspection: Yes normal to inspection, Yes incision (clean, dry and intact) and Yes obesity Palpation (GI): Soft to palpation Extrem: Right lower extremity: normal to inspection (no calf tenderness) L eft lower extremity: normal to inspection (no calf tenderness) Objective Data Active Medications Lactated Ringer's (Lr) 1,000 mls @ 999 mls/hr IV .Q1H1M JOSE ANTONIO Stop: 04/03/25 08:15 Last Admin: 04/03/25 06:39 Dose: 999 mls/hr Documented By: AMINTA Lactated Ringer's (Lr) 1,000 mls @ 100 mls/hr IVCONT .Q10H JOSE ANTONIO Stop: 04/03/25 10:14 Labs 04/04/25 05:08 04/04/25 05:08 Labs: Laboratory Results - last 24 hr 04/03/25 06:10 Urine Test NEGATIVE Procedures Date of Service Date of Service: 04/04/25 Progress Note: A&P Assessment and plan (1) Morbid obesity: Status: Acute Assessment and Plan: s/p laparoscopic sleeve gastrectomy and gastropexy Doing well Will check am labs and if OK the patient will be discharged home (2) GERD (gastroesophageal reflux disease): Status: Acute (3) PCOS (polycystic ovarian syndrome): Status: Acute (4) Back pain: Status: Acute (5) Migraine: Status: Acute (6) Insomnia: Status: Acute (7) Obstructive sleep apnea: Status: Acute (8) S/P laparoscopic sleeve gastrectomy: Status: Acute Time Spent With Patient Time: Total time managing care of this patient today ____ minutes. Quality Stroke Does the patient have a stroke diagnosis?: No VTE Prior VTE?: No VTE Risk Level:: Surgical - moderate VTE Device Contraindication: N/A - Device Ordered VTE Drug Contraindication: Treatment Not Indicated
--- NOTE | 2025-04-03 07:53 | PHA.MEDREC ---
Pharmacy Consult ? Medication Reconciliation Reviewed med rec done by nursing.
--- NOTE | 2025-04-03 10:19 | PM.DS ---
DS: Providers Provider Date of admission: 04/03/25 06:07 Date of discharge: 04/04/25 Primary care physician: Anjali Villaseñor MD DS: Diagnosis Discharge Diagnosis (1) Morbid obesity: Status: Acute (2) GERD (gastroesophageal reflux disease): Status: Acute (3) PCOS (polycystic ovarian syndrome): Status: Acute (4) Back pain: Status: Acute (5) Migraine: Status: Acute (6) Insomnia: Status: Acute (7) Obstructive sleep apnea: Status: Acute (8) S/P laparoscopic sleeve gastrectomy: Status: Acute DS: Summary Hospital Course Hospital Course: ADMITTING DIAGNOSIS: morbid obesity DISCHARGE DIAGNOSIS: same, s/p laparoscopic sleeve gastrectomy and gastropexy PAST HISTORY:? Medical History Esophagitis determined by biopsy BMI 50.0-59.9, adult Back pain Pseudocholinesterase deficiency Obstructive sleep apnea Allergic rhinitis Morbid obesity with BMI of 50.0-59.9, adult Chronic tonsillar hypertrophy Impaired fasting glucose Pre-diabetes Adjustment disorder, unspecified PCOS (polycystic ovarian syndrome) GERD (gastroesophageal reflux disease) Morbid obesity Surgical History S/P tonsillectomy (~12/11/21) History of incision and drainage PROCEDURE: upper endoscopy, laparoscopic sleeve gastrectomy and gastropexy DISCHARGE SUMMARY: History of Present Illness: The patient is a?34 year-old woman with a BMI of 48.5 kg/m2 and associated co-morbidities as described above. The patient had extensive work-up, lost 28.8 lbs preoperatively and was electively scheduled for laparoscopic, possible open sleeve gastrectomy and gastropexy. Risks and complications of the surgery were discussed with the patient in advance, particularly the possibility of , pulmonary embolism, anastomotic leak, bleeding, bowel injury, GERD, cardiac, renal or pulmonary complications. The patient understood all the risks and was in agreement with the surgical plan. Hospital Course: The patient underwent an uneventful laparoscopic sleeve gastrectomy with gastropexy on the day of admission. Postoperatively, the patient was transferred to the surgical floor. The patient received IV Acetaminophen and IV dilaudid for pain control. Patient was started on bariatric phase 1 diet POD #0. On postoperative day one, the patient was feeling well without nausea, vomiting, fevers, or tachycardia. The patient had some mild incisional pain and the abdomen was soft.? On the morning of postoperative day one, the patient was continued on 1 ounce of water or ice every half hour. During the day, the patient did fairly well, having some incisional pain, but able to ambulate adequately and to tolerate liquids well. Since the patient is doing well, we decided that the patient was ready to be discharged. The patient was given instructions to follow-up with me next week and to call my office for any fever over 101, persistent abdominal pain, nausea, vomiting, GERD, symptoms of DVT such as calf tenderness, or leg swelling, or pulmonary embolism such as chest pain or shortness of breath.? The patient was also instructed to drink 40-60 ounces of liquids per day using the 1-ounce cups. The patient had been given prescriptions for Tylenol for pain, Zofran prn for nausea, and pantoprazole and carafate previously. The patient was encouraged to ambulate and use the incentive spirometer. The patient was allowed to shower, but no baths, and encouraged to stay active at home. All of these instructions were given to the patient personally. All questions were answered and the patient understood all instructions, the instructions were also given to the patient in print. Time Attestation Discharge Coordination Time (in mins): 30 Quality: Safe Use of Opioids Does Pt have an Active Cancer Diagnosis on the Problem List?: No Quality: Stroke Does the patient have a stroke diagnosis?: No Physical Exam Vital Signs: Vital Signs: Last Vital Signs Temp 98.3 F 04/03/25 10:11 Pulse 85 04/03/25 10:15 Resp 18 04/03/25 10:15 BP 117/62 04/03/25 10:15 Pulse Ox 94 04/03/25 10:15 O2 Del Method Simple Mask 04/03/25 10:15 O2 Flow Rate 6 04/03/25 10:15 BMI result Body Mass Index 48.5 DS: Data Data Completed and Pending Pending studies at discharge: Pending at discharge 04/03/25 09:12 Surgical [PTH] Routine Labs on day of discharge: Laboratory Results - last 24 hr 04/03/25 06:10 Urine Test NEGATIVE Discharge Plan Discharge Anticipated Discharge Date/Time: 04/04/25 10:00 Patient Disposition: Home, Self-Care Discharge Diagnosis: s/p laparoscopic sleeve gastrectomy Referrals: Po,Anjali Gardiner MD [Primary Care Provider, Internal Medicine] - 1 Week Discharge Medications: Continued nystatin 100,000 unit/gram powder 1 appl topical BID PRN (Reason: Skin Irritation) sumatriptan succinate 50 mg tablet 50 mg PO DAILY MRX1 MDD 100 mg PRN (Reason: migraine headache) Rx Instructions: take one tab with one Aleve, if needed repeat only sumatriptan again in one hour , no more than 2 tabs in 24 hours fexofenadine-pseudoephedrine [Tania-D 24 Hour] 180-240 mg tablet extended release 24 hr 1 tab PO QAM PRN (Reason: Allergy Symptoms) sucralfate 100 mg/mL suspension 10 ml PO BID Qty: 600 2RF Patient Comments: postop meds pantoprazole 40 mg tablet,delayed release (DR/EC) 40 mg PO DAILY Qty: 90 0RF ondansetron 4 mg tablet,disintegrating 4 mg PO Q12H Qty: 20 0RF Discontinued vitamin A palmitate 3,000 mcg (10,000 unit) capsule 10,000 unit PO DAILY Qty: 60 0RF Zepbound 7.5 mg/0.5 mL pen injector 10 mg subcut MO Rx Instructions: pt takes on wednesday last dose 03/26 Discharge Orders: Discharge Order (Routine); Ordered 04/04/25 Ordered By: Alexey Puri Activity on Discharge: No heavy lifting Stand Alone Forms: Patient Portal Discharge page Print Language: Cuban Care Plan Goals: weight loss Health Concerns: morbid obesity Plan of Treatment: Discharge Instructions: You may shower the day after discharge. No tub baths, sex or returning to work until discussed at first post op appointment. No alcohol, tobacco, or illegal drug use. Continue to use incentive spirometer hourly while awake. Walk in home for 5-10 minutes every 2 hours during the first week. Wear abdominal binder with activity. Activity: limit stair climbing, no bending, no heavy lifting, no driving, no exercise, no work. No lifting > 10 lbs x6 weeks post op. No driving within 24 hours of taking narcotic pain medications. Follow all meal plan instructions from your bariatric surgeon. Do not advance diet until approved by surgeon. Review bariatric handbook and call with any questions. If you do not move your bowels in the next 2 days, please take milk of magnesia over the counter. Dressing Change/Wound Care: Your incisions are covered with waterproof dressings. You can shower with these and pat dry. Do not rub over dressings or incisions. If the area is tender, you may apply an ice pack for short intervals (no more than 20 minutes on, followed by at least 20 minutes off). Do not apply heat. Do not use creams, lotions, or topical antibiotics unless instructed to do so by your surgeon. Do not hesitate to contact the office with any questions at or concerns such as: - Temperature exceeds 101.5 F, fevers, chills - Excessive pain or swelling, abdominal pain - Unexpected reaction to medication - Excessive bleeding - Continued vomiting/nausea - Incision begins to separate - Signs of infection such as increased redness, swelling, excessive pain, heat, or drainage (light blood or clear fluid is normal) - Shortness of breath - Chest pain - Leg pain or swelling - Go to ER for any emergent symptoms General instructions: Please walk around your home every 1-2 hrs to prevent blood clots from forming in your legs. You do not need to wake from sleeping to walk. Please sleep in a bed or couch to prevent kinking at the hips and knees. Please take your incentive spirometer (your lung office correspondent) home with you and use it for the next few days to prevent pneumonia. Please make sure you are consuming 40-60 ounces of total fluids per day. Avoid all carbonation. The patient's medical history has been reviewed and they are considered low risk for post op DVT and therefore DVT prophylaxis is not considered necessary. Travel after surgery was reviewed. The patient has not disclosed any travel plans during the first 30 days after surgery and they have been advised that within the first 30 days after surgery any bus, plane, train or car travel over 2 hours in duration is contraindicated due to the possibility of developing blood clots from immobility. Any travel, needs to include periods of ambulation of 10 minutes in duration every 2 hours.? The patient was instructed to discuss any plans for travel during this period with their bariatric surgeon. Follow up as scheduled in 1 week in office Assessment: s/p laparoscopic sleeve gastrectomy Patient Instructions: Laparoscopic Sleeve Gastrectomy (DC) Discharge Date/Time: 04/04/25 14:40
[2025-04-03 10:33] LABS: Hematocrit 41.1 % (37.0-47.0); Hemoglobin 13.7 g/dl (12.0-16.0)
[2025-04-03 10:50] LABS: Anion Gap 12 (12-20); Blood Urea Nitrogen 11 mg/dL (9-16); Calcium 8.9 mg/dL (8.4-10.2); Carbon Dioxide 25 mmol/L (22-29); Chloride 106 mmol/L (96-108); Creatinine Clr Calc Pharmacy 194.8; Estimated Glomerular Filt Rate > 60; Potassium 4.2 mmol/L (3.3-5.1); Sodium 139 mmol/L (135-145)
[2025-04-03] MEDS: Lactated Ringers 1,000 ML 100 ML IVCONT ×2 (11:49→21:22)
[2025-04-03] MEDS: 0.9 % Sodium Chloride Flush 3 ML SYRINGE IVFLUSH (20:03)
[2025-04-04 03:13] VITALS: BP 117/59; PULSE 82; RESP 16; TEMP 36.5; O2SAT 94
[2025-04-04 05:54] LABS: MANUAL DIFF FLAG NO
[2025-04-04 05:56] LABS: Hematocrit 31.1 % (37.0-47.0); Hemoglobin 10.4 g/dl (12.0-16.0); Imm Gran Abs Auto 0.08 X10*3/uL (0.00-0.03); Imm Gran Pct Auto 0.6 % (0.0-0.4); Lymphocytes Absolute Auto 1.9 X10*3/uL (1.2-4.9); Mean Corpuscular HGB Conc 33.4 g/dl (31.0-35.0); Mean Corpuscular Hemoglobin 28.5 pg (27.0-33.0); Mean Corpuscular Volume 85.2 fL (80.0-98.0); NRBC Abs Auto 0.000 X10*3/uL (0.0-0.012); NRBC Pct Auto 0.0 /100WBC (0.0-0.2); Platelet Count 342 X10*3/uL (160-400); Red Blood Count 3.65 X10*6/uL (4.20-5.50); White Blood Count 13.6 X10*3/uL (4.8-10.8)
[2025-04-04 06:15] LABS: Anion Gap 12 (12-20); Blood Urea Nitrogen 13 mg/dL (9-16); Calcium 8.5 mg/dL (8.4-10.2); Carbon Dioxide 25 mmol/L (22-29); Chloride 106 mmol/L (96-108); Creatinine Clr Calc Pharmacy 182.0; Estimated Glomerular Filt Rate > 60; Potassium 4.3 mmol/L (3.3-5.1); Sodium 139 mmol/L (135-145)
--- NOTE | 2025-04-04 07:06 | PC.RT ---
pt states she does not want to wear cpap as she does not have one at home. Therefore order will be dc'd per policy.
[2025-04-04 07:40] VITALS: BP 115/61; PULSE 89; RESP 18; TEMP 36.9; O2SAT 96
--- NOTE | 2025-04-04 07:57 | HO.POSTANES ---
Post Anesthesia Evaluation Post Anesthesia Evaluation Date of Service: 04/04/25 Vital Signs: Vital Signs Temp Pulse Resp BP Pulse Ox O2 Del Method 04/04/25 07:40 98.5 F 89 18 115/61 96 Room Air 04/04/25 03:13 97.7 F 82 16 117/59 L 94 Room Air 04/03/25 23:44 98.6 F 77 16 111/63 94 Room Air 04/03/25 21:49 97.5 F 75 18 107/57 L 91 L Room Air Anesthesia: General Mental Status: Awake Pain Control: Satisfactory Nausea/Vomiting: None Hydration: Adequate Anesthesia-Related Issues: No Anes. Related Issues
[2025-04-04] MEDS: Lactated Ringers 1,000 ML 100 ML IVCONT (08:41)
[2025-04-04] MEDS: 0.9 % Sodium Chloride Flush 3 ML SYRINGE IVFLUSH (08:43)
[2025-04-04 11:59] VITALS: BP 118/61; PULSE 92; RESP 18; TEMP 36.8; O2SAT 96
[2025-04-04 12:04] LABS: Hematocrit 29.7 % (37.0-47.0); Hemoglobin 9.9 g/dl (12.0-16.0)
== END 2025-04-04 14:40 | disposition home or self-care (01) | DRG 403 ==
LOC: HO.SSSA 06:31 → HO.S3 09:50
PROVIDERS: Nurse Practitioner; Admitting Provider Surgery; PCP Internal Medicine; Visit Provider Surgery
PROC: 0DB64Z3 Excision of Stomach, Percutaneous Endoscopic Approach, Vertical (ICD-10-PCS; CPT 43845; principal; 2025-04-03 07:30)
DX: E66.01 Morbid (severe) obesity due to excess calories (principal); E28.2 Polycystic ovarian syndrome; K21.9 Gastro-esophageal reflux disease without esophagitis; G47.33 Obstructive sleep apnea (adult) (pediatric); M54.9 Dorsalgia, unspecified; Z68.42 Body mass index [BMI] 45.0-49.9, adult; Z79.899 Other long term (current) drug therapy
CPT/HCPCS: 36415; 80048; 81025; 85014; 85018; 85025; 86850; 86900; 86901; 88304; 88305; 88307; 88342; A4649; C9145; J0131; J0690; J1100; J1171; J1308; J1885; J2003; J2250; J2405; J2704; J2795; J3010; J7120

== ENCOUNTER → 2025-04-03 06:07 | Outpatient (BNV) | payer OTHER, SELFPAY | PROVIDERS: Admitting Provider Surgery; PCP Internal Medicine; Visit Provider Surgery | DX: E66.01 Morbid (severe) obesity due to excess calories (principal); Z68.42 Body mass index [BMI] 45.0-49.9, adult; K21.9 Gastro-esophageal reflux disease without esophagitis; G47.33 Obstructive sleep apnea (adult) (pediatric); E28.2 Polycystic ovarian syndrome; G43.909 Migraine, unspecified, not intractable, without status migrainosus; G47.00 Insomnia, unspecified | CPT/HCPCS: 43239; 43775; 99024 ==

== ENCOUNTER 2025-04-11 08:47 | Outpatient (AMB) | payer OTHER, SELFPAY ==
--- OUTSIDE RECORDS SUMMARY | 2025-04-11 08:52 | XMS_ITS | Clinical Summary ---
Author Organization [facility] Address [address] [place] [address] Phone Care Team Providers Care It Administrator Name Role Phone Kel Escalante MD Primary Care Provider [phone] Allergies Active Allergy Reactions Criticality Noted Date [...] PPO UNITED PPO UNITED PPO UNITED PPO [id number] Member Subscriber Plan / Payer (Ef fective 2022-Present) Name:Arianna Villareal Relation to Subscriber:Self Name:Arianna Villareal Payer ID:Not on file Group ID:Not on file Type:Indemnity Address: [address] Care Teams It Administrator Relationship Specialty Start Date End Date Kel Escalante MD [address] [place] [address] [place] [address] PCP - General Internal Medicine 11/18/22 Additional Source Comments The information contained in this document represents components of the legal health record. It is not the complete legal health record.[facility]
--- OUTSIDE RECORDS SUMMARY | 2025-04-11 08:52 | XMS_ITS | Encounter Summary ---
Author Organization [facility] Address [address] [place] [address] Phone Care Team Providers Care Postal Service Window Clerk Name Role Phone Kel Escalante MD Primary Care Provider [phone] Encounter Details Date Type Department Care Team (Late st Contact Info) Description 11/18/2022 Procedure Pass [facility], Ct Scan - [address] [address] Social History Tobacco Use Types Packs/Day Years [...] on filedocumented in this encounter Care Teams Postal Service Window Clerk Relationship Specialty Start Date End Date Kel Escalante MD [address] [place] [address] [facility] [place] [address] PCP - General Internal Medicine 8/9/23 documented as of this encounter Additional Source Comments The information contained in this document represents components of the legal health record. It is not the complete legal health record.[facility]
--- OUTSIDE RECORDS SUMMARY | 2025-04-11 08:52 | XMS_ITS | Patient Health Record ---
[facility] Address [address] [place] [address] Care Team Providers Care Varnisher Apprentice Name Role Phone Ingrid HAWKINS, Rachael Leavitt Primary Care Provider Wilfrid Smith Unavailable [phone] Allergies Allergen (clinical drug ingredient) Drug/Non Drug [...] Insured Coverage Start Date Coverage End Date [facility] [address] [place] [address] [phone] [id number] Arianna Siegel Self - patient is the insured Medical (General) History Medical History History ICD Code Psoriasis/eczema polycystic ovarian syndrome sleep apnea Plantar Fasciitis Calcaneal spur Bursitis Myositis
--- NOTE | 2025-04-11 09:01 | MHC.OFFVISWM ---
VS Expanded 04/11/25 09:16 BP 122/59 L Blood Pressure Location Rt brachial Blood Pressure Position Sitting Pulse 80 Pulse Source Pulse Oximeter Temp 97.8 F Temperature Source Temporal Artery Scan Pulse Oximetry 98 Oxygen Delivery Method Room Air Height 5 ft 5.5 in Weight 284 lb 6.4 oz BMI 46.6 Body Fat % 46.1 Body Fat Mass 131.2 Fat Free Mass 153.2 Visceral Fat Rating 14.0 Body Water % 38.6 Body Water Mass 109.8 Muscle Mass/Score 145.6 Basal Metabolic Rate/Score 2,198 Intake Visit Reasons: (OV) PO LSG 04/03/25 Allergies cortisone (CORTISONE) Allergy (Unknown, Verified 04/11/25 09:23) Anaphylaxis,hives,chest pain succinylcholine Adverse Reaction (Severe, Verified 04/11/25 09:23) Unresponsive Medication List - Last Reconciled 04/11/25 by Katherine Rivera, MAURILIO fexofenadine-pseudoephedrine 180-240 mg ER (Tania-D 24 Hour) 1 tab PO QAM PRN nystatin 1 appl topical BID PRN ondansetron 4 mg PO Q12H pantoprazole 40 mg PO DAILY sucralfate 10 mL PO BID sumatriptan succinate 50 mg PO DAILY MRX1 PRN MDD 100 mg HPI Comments Details: This is a 34 year old woman s/p LSG on?04/03/2025. Presents for 1 week post op visit. Starting weight was 333.2 lbs. Operative weight was 291.6 lbs. Weight today is 284.4 lbs, representing a 48.8 lbs weight loss since start of the program. BMI today of 46.6.? No complaints of nausea, emesis, abdominal pain or reflux, or constipation. Taking pantoprazole and carafate. Some early fatigue. Avoids bending, squats instead. Wearing the binder. Has toddler at home but is not lifting him. States she feels great, no questions or concerns today. Current meal plan: communicating with Dr Grimes 2mL/min (1oz/15 min) - using syringe Muscle milk protein shakes, 8 oz each - 3x per day Dinner: 11.5 oz protein shake 40-45oz water per day Exercise routine: nothing right now stationary bike Work status: [employer], FMLA until May 2025 [facility] Medical History Obstructive sleep apnea Sleep apnea Esophagitis determined by biopsy BMI 50.0-59.9, adult Back pain Pseudocholinesterase deficiency Allergic rhinitis Morbid obesity with BMI of 50.0-59.9, adult Chronic tonsillar hypertrophy Impaired fasting glucose Pre-diabetes Adjustment disorder, unspecified PCOS (polycystic ovarian syndrome) GERD (gastroesophageal reflux disease) Morbid obesity Surgical History History of esophagogastroduodenoscopy (EGD) S/P tonsillectomy (~12/11/21) History of incision and drainage Family History Father Bipolar 1 disorder COPD (chronic obstructive pulmonary disease) Psoriasis Eczema Depression Chronic mental illness Mother Hypothyroidism Rheumatoid arthritis Brother In good health Paternal Aunt Breast cancer Paternal Uncle Pancreatic cancer Other Mental health disorder Social History Household Members: Family Housing: House Are you a primary spiritual care coordinator to a significant other at home: No Do you presently have visiting nurse or other home services: No Alcohol intake: current Alcohol intake frequency: holidays/special occasions only Patient Tobacco Use Status: Never used Tobacco Tobacco use type: Cigarette e-Cigarette/Vaping Use: Never Used Second Hand Smoke Exposure: No service: No Current occupational status: employed Cognitive needs: No Hearing needs: No Vision needs: Yes Female Reproductive History Menstrual Age of Menarche: 11 Physical Exam Vital Signs: Last Vital Signs Temp 97.8 F 04/11/25 09:16 Pulse 80 04/11/25 09:16 BP 122/59 L 04/11/25 09:16 Pulse Ox 98 04/11/25 09:16 Oxygen Delivery Method Room Air 04/11/25 09:16 BMI result Body Mass Index 46.6 Const General: cooperative, healthy appearing, comfortable and no acute distress Orientation/consciousness: patient oriented x3 GI Other: Abdomen is soft non-tender non-distended. 5 lap sites with gauze and Tegaderm CDI, which were removed. Steri-Strips underneath CDI. Mild fading purple bruising around the most lateral lap sites. No surrounding erythema or drainage or S&S of infection. Neuro General: patient oriented x3 Assessment & Plan Assessment & Plan (1) S/P laparoscopic sleeve gastrectomy: Comment: March 2025 Code(s): Z98.84 - Bariatric surgery status Category: Surgical Plan: Plan: - May shower but no bath or submersion of abdomen in water until healed. - Reviewed S&S of infection, incisional care - May start exercise tomorrow (or 1 week postop).? No abdominal exercises x 6 weeks. Discussed starting cardio exercise slowly. - Abdominal binder for the next 2 weeks with activity or exercise. - Continue meal plan per Dr. Grimes until next f/u. - Reviewed pantoprazole and carafate dosing. - Reminded of the pace of drinking 2 mL/min or 1oz per 15 min. - Will be emailed link for post op video for review. Follow up: 5 weeks
[2025-04-11 09:16] VITALS: BP 122/59; PULSE 80; TEMP 36.6; O2SAT 98; BMI 46.6
== END 2025-04-11 10:00 | disposition home or self-care (01) ==
LOC: HO.HBS 08:48
PROVIDERS: PCP Internal Medicine; Visit Provider Nurse Practitioner
DX: E66.01 Morbid (severe) obesity due to excess calories (principal); Z68.42 Body mass index [BMI] 45.0-49.9, adult; Z90.3 Acquired absence of stomach [part of]; Z98.84 Bariatric surgery status
CPT/HCPCS: 99024

== ENCOUNTER → 2025-04-11 08:47 | Outpatient (BNVA) | payer OTHER, SELFPAY | PROVIDERS: PCP Internal Medicine; Visit Provider Nurse Practitioner | DX: Z48.815 Encounter for surgical aftercare following surgery on the digestive system (principal); Z98.84 Bariatric surgery status; Z79.899 Other long term (current) drug therapy | CPT/HCPCS: 99212 ==